=== PATIENT | female | born 1940 | race Caucasian/White ===

== ENCOUNTER → 2019-04-17 15:05 | Outpatient (BNVA) | payer MEDICARE, OTHER, SELFPAY | PROVIDERS: Family Provider Electrodiagnostic Medicine; PCP Electrodiagnostic Medicine; Visit Provider Internal Medicine Rheumatology | DX: M35.3 Polymyalgia rheumatica (principal); M18.9 Osteoarthritis of first carpometacarpal joint, unspecified; M19.042 Primary osteoarthritis, left hand | CPT/HCPCS: 20600 ×2; 99214; J2001; J3301 ==

== ENCOUNTER 2019-05-20 11:37 | Outpatient (REF) | payer MEDICARE, OTHER, SELFPAY ==
[2019-05-20 12:13] LABS: Anion Gap 14.7 (5-19); Blood Urea Nitrogen 13 mg/dL (8-23); Calcium 10.1 mg/dL (8.5-10.5); Carbon Dioxide 29 mmol/L (22-29); Chloride 101 mmol/L (98-107); Glucose 101 mg/dL (65-115); Magnesium 2.1 mg/dL (1.7-2.3); Osmolality Calculated 288 mOsm/kg (285-295); Potassium 3.7 mmol/L (3.5-5.1); Sodium 141 mmol/L (136-145)
== END 2019-05-20 11:38 | disposition home or self-care (01) ==
LOC: LAB 11:37
PROVIDERS: Family Provider Electrodiagnostic Medicine; PCP Electrodiagnostic Medicine; Visit Provider Electrodiagnostic Medicine
DX: Z01.89 Encounter for other specified special examinations (principal)
CPT/HCPCS: 80048; 83735

== ENCOUNTER 2019-05-27 10:36 | Outpatient (CLI) | payer MEDICARE, OTHER, SELFPAY ==
--- NOTE | 2019-05-27 10:53 | MR_ITS ---
WS: [id number] MRI HEAD WITH CONTRAST WITH ATTENTION TO THE INTERNAL AUDITORY CANALS TECHNIQUE: Sagittal T1, T2 axial, T2 axial flair, axial susceptibility weighted imaging, axial diffus ion weighted images, and coronal T2 images were obtained. Pre and post T1 axial and post T1 coronal i mages. ADC and FSPGR images. Post gadolinium images with attention to the internal auditory canals. A xial fiesta imaging. CLINICAL INFORMATION: DIZZINESS AND GIDDINESS COMPARISON: None. FINDINGS: No evidence of restricted diffusion to suggest acute ischemia. Ventricular system and basal cisterns are patent. Mild small vessel changes. Moderate parenchymal volume loss. Normal posterior fossa. Norm al vascular flow voids at the skull base. No extra-axial fluid collections. Paranasal sinuses and mas toid air cells well aerated. Proximal 7th and 8th cranial nerves appear normal. No evidence of enhancing IAC or CP angle mass. Nor mal trigeminal nerve root entry zones. Normal optic chiasm and pituitary infundibulum. No abnormal in tracranial enhancement. No hemosiderin on susceptibly weighted images. MR/MR iac's wo/w con* [id number] IMPRESSION: 1. No evidence of restricted diffusion to suggest acute ischemia. 2. Mild small vessel changes with moderate parenchymal volume loss. 3. Proximal 7th and 8th cranial nerves appear normal. 4. No evidence of enhancing IAC or CP angle mass.
== END 2019-05-27 10:37 | disposition home or self-care (01) ==
LOC: RADWPI 10:43
PROVIDERS: Family Provider Electrodiagnostic Medicine; PCP Electrodiagnostic Medicine; Visit Provider Specialist
DX: R42 Dizziness and giddiness (principal)
CPT/HCPCS: 70553; A9579

== ENCOUNTER → 2019-08-26 12:54 | Outpatient (BNVA) | payer MEDICARE, OTHER, SELFPAY | PROVIDERS: Family Provider Electrodiagnostic Medicine; PCP Electrodiagnostic Medicine; Visit Provider Internal Medicine | DX: M35.3 Polymyalgia rheumatica (principal); M81.0 Age-related osteoporosis without current pathological fracture; Z79.52 Long term (current) use of systemic steroids; Z79.899 Other long term (current) drug therapy | CPT/HCPCS: 36415; 80053; 85025; 85651; 86140; 86431; 99213 ==

== ENCOUNTER 2019-08-27 15:19 | Outpatient (CLI) | payer MEDICARE, OTHER, SELFPAY ==
--- NOTE | 2019-08-27 15:31 | XR_ITS ---
WS: [id number] Lumbar spine, 3 views, 08/27/2019 Clinical Data: lower back pain Comparison: Lumbar spine, 07/15/2015. Findings: No compression fractures or subluxation is seen. No disc space narrowing is seen. The transverse proc esses and SI joints are normal. Moderate anterior osteoarthritic spurring is seen. There is calcification of the wall of the abdomina l aorta but no aneurysm. XR/XR lumbar spine 2-3V* [id number] Impression: Moderate osteoarthritis.
--- NOTE | 2019-08-27 15:31 | XR_ITS ---
WS: [id number] Left hand, 2 views, 08/27/2019 Clinical Data: Synovitis Comparison: None. Findings: No fractures or dislocations are seen. The soft tissues are unremarkable. The joint spaces are normal No periarticular demineralization or calcifications are noted. XR/XR hand LT 2V [id number] Impression: Negative left hand.
--- NOTE | 2019-08-27 15:31 | XR_ITS ---
WS: [id number] Right hand, 2 views, 08/27/2019 Clinical Data: Synovitis Comparison: None. Findings: No fractures or dislocations are seen. The soft tissues are unremarkable. There is osteoa rthritic change at the head of the right first metatarsal. There is incidental small calcification on the distal lateral aspect of the right fourth middle phalanx. XR/XR hand RT 2V [id number] Impression: Minimal osteoarthritic changes.
== END 2019-08-27 15:20 | disposition home or self-care (01) ==
LOC: RADWPI 15:22
PROVIDERS: Family Provider Electrodiagnostic Medicine; PCP Electrodiagnostic Medicine; Visit Provider Internal Medicine
DX: M54.5 Low back pain (principal); M65.842 Other synovitis and tenosynovitis, left hand; M65.841 Other synovitis and tenosynovitis, right hand; M47.816 Spondylosis without myelopathy or radiculopathy, lumbar region; M19.041 Primary osteoarthritis, right hand
CPT/HCPCS: 72100; 73120

== ENCOUNTER 2019-10-17 14:54 | Outpatient (RCR) | payer MEDICARE, OTHER, SELFPAY | END 2019-11-11 23:59 | disposition home or self-care (01) | LOC: SPT 14:54 | PROVIDERS: PCP Electrodiagnostic Medicine; Referring Provider Otolaryngology; Visit Provider Otolaryngology | DX: R42 Dizziness and giddiness (principal) | CPT/HCPCS: 95992; 97112; 97162 ==

== ENCOUNTER 2019-11-01 23:21 | Inpatient (IN) | payer MEDICARE, OTHER, SELFPAY ==
--- NOTE | 2019-11-01 23:33 | XR_ITS ---
WS: [id number] EXAM: AP CHEST: PORTABLE UPRIGHT DATE OF EXAM: 11/02/2019, 0025 hours COMPARISON: Chest x-ray from 11/03/2017. HISTORY: Patient is 79 years old with atraumatic chest pain and shortness of breath. FINDINGS: The cardiac silhouette is normal in size. The mediastinal contours are similar. Calcified plaque i n the aorta.. The pulmonary vascularity is normal. Chronic lung changes are demonstrated. Slight c oarse markings in the lung bases are considered chronic with some slight linear atelectasis or scarri ng. Lungs are slightly hyperinflated. There is no effusion or pneumothorax. Old upper outer right r ib fractures again noted. XR/XR chest 1V portable [id number] IMPRESSION: Chronic lung changes demonstrated with slight hyperinflation. Linear atelectasi s or scarring in the lung bases. No findings of pulmonary edema or acute consol idating infiltrate.
--- NOTE | 2019-11-01 23:34 | ECG_ITS ---
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 Measurements Intervals [place] Rate: 74 P: 88 ID: [id number] QRS: 21 QRSD: 84 T: 66 QT: 378 QTc: 422 Interpretive Statements SINUS RHYTHM Compared to ECG 11/01/2017 07:11:26 No significant changes Electronically Signed On 11-02-2019 19:25:22 CDT by Bang Shepherd M.D. [id number] f
[2019-11-01 23:38] VITALS: BP 186/85; PULSE 79; RESP 18; TEMP 36.8; O2SAT 95; BMI 25.0
[2019-11-02] VITALS (13 sets, daily range): BP systolic 134–170; BP diastolic 73–93; PULSE 62–78; RESP 16–68; TEMP 36.6–36.8; O2SAT 86–99
[2019-11-02 00:03] LABS: Basophils % 0.5 %; Eosinophils # 0.2 10^3/uL (0.0-0.8); Eosinophils % 3.1 %; Hematocrit 41.3 % (37.0-47.0); Hemoglobin 12.5 g/dL (11.5-15.3); Lymphocytes # 2.6 10^3/uL (0.8-4.8); Lymphocytes % 43.4 %; Mean Corpuscular HGB Conc 30.3 g/dL (30.0-36.0); Mean Corpuscular Hemoglobin 31.2 pg (28.0-34.0); Mean Platelet Volume 10.9 fL (7.4-10.4); Monocytes # 0.5 10^3/uL (0.2-0.9); Monocytes % 8.1 %; Neutrophils # 2.72 10^3/uL (1.8-7.7); Neutrophils % 44.7 %; Nucleated Red Blood Cells % 0 %; Platelet Count 185 10^3/cmm (130-400); Red Blood Count 4.01 10^6/uL (4.1-5.3); Red Cell Distribution Width 13.6 % (12.1-15.1); White Blood Count 6.1 10^3/uL (4.0-10.0)
[2019-11-02 00:27] LABS: Troponin(5th) Baseline 12 ng/L (0-10)
[2019-11-02 00:36] LABS: Alanine Aminotransferase 21 U/L (0-33); Alkaline Phosphatase 92 IU/L (35-105); Anion Gap 12.5 (5-19); Aspartate Amino Transferase 24 U/L (0-32); Blood Urea Nitrogen 13 mg/dL (8-23); Carbon Dioxide 28 mmol/L (22-29); Chloride 106 mmol/L (98-107); Globulin 2.3 g/dL (1.3-4.6); Glucose 115 mg/dL (65-115); Osmolality Calculated 293 mOsm/kg (285-295); Potassium 3.5 mmol/L (3.5-5.1); Sodium 143 mmol/L (136-145); Thyroid Stimulating Hormone 2.72 uIU/mL (0.27-4.20); Total Bilirubin 0.2 mg/dL (0.15-1.2); Total Protein 6.3 g/dL (6.6-8.7)
--- NOTE | 2019-11-02 00:42 | ED_ITS ---
HPI - Chest Pain General: Chief Complaint: Chest Pain Stated Complaint: cp Time Seen by Provider: 11/02/19 00:02 History of Present Illness: HPI narrative: 79-year-old female complains of a fluttery feeling in her chest for the past couple of days, this is happened in a crescendoing manner, becoming more and more frequent and severe. She has been short of breath, especially on exertion. This evening she took a nitroglycerin, which seemed to help the fluttering some. She does experience discomfort with this fluttering feeling. She has a history of coronary disease. MD complaint: chest pain Pertinent past history: coronary artery disease and AD COMPOSITOR Onset (ago): day(s) Prior episodes: Yes Onset: during rest and during exertion Pain location: substernal Pain radiation: none Severity: moderate Quality: tightness, heaviness and other ( Fluttering ) Relieving factors: nitroglycerin Associated symptoms: Reports dyspnea, nausea and palpitations; Deny abdominal pain, fever(s) or vomiting Review of Systems Const: Denies: fever(s) or chills Eyes: Denies: change in vision or blurry vision ENMT: Denies: swelling of lips/tongue, post nasal drip or sinus pain Card: Reports: chest pain, palpitations, irregular heart rhythm, dyspnea on exertion and orthopnea; Denies: edema or swelling of feet/ankles Resp: Reports: dyspnea; Denies: productive cough, non-productive cough or wheezing GI: Reports: nausea; Denies: abdominal pain or vomiting : Denies: dysuria or hematuria Musc: Reports: back pain; Denies: neck pain or joint warmth Skin/Breast: Denies: rash, pruritus or erythema Neuro: Denies: headache(s), dizziness or vertigo Psych: Denies: anxiety PFS ED PFSH: Medical History (Updated 11/02/19 @ 05:03 by Alberto Roman DO) Carotid stenosis Coronary artery disease Dyslipidemia Essential hypertension Flexor tenosynovitis of finger Osteoarthritis of carpometacarpal joint of left thumb Osteoporosis PMR (polymyalgia rheumatica) Sleep apnea Trigger finger, left index finger Surgical History Hx of coronary angioplasty Family History Other CAD (coronary artery disease) Cancer Diabetes Hypertension Rheumatoid arthritis Denies family history of Chronic kidney disease (CKD) Lung disease Social History Smoking and tobacco status: former smoker Desire information about alcohol rehabilitation?: No Physical Exam Const: GENERAL APPEARANCE: well developed ORIENTATION/CONSCIOUSNESS: Yes oriented to person, Yes oriented to place and Yes oriented to time HENMT: COMMON NORMALS: normocephalic, external ears normal and Normal external nose present HEAD & SCALP: normocephalic FACE & SINUS: normal facial exam NOSE: Normal external nose present and No nasal discharge present EXTERNAL EAR: Yes external ears normal Eye: COMMON NORMALS: Equal, round and reactive pupils present, EOMs intact bilaterally and conjunctivae normal EYELID: eyelids normal CONJUNCTIVA: Yes conjunctivae normal PUPIL: Yes Equal, round and reactive pupils present Neck/C-Spine: GENERAL: No tracheal deviation Chest: COMMONS NORMALS: normal inspection of the chest CHEST: No tenderness Resp: COMMON NORMALS: clear to auscultation bilaterally EFFORT & INSPECTION: No tachypneic, No respiratory distress, No retractions, No uses accessory muscles and No tracheal deviation AUSCULTATION: clear to aus cultation bilaterally, no rhonchi, no wheezes and lung sounds not diminished Cardio: COMMON NORMALS: regular rate RATE: regular rate RHYTHM: abnormal rhythm HEART SOUNDS: no murmurs PERIPHERAL PULSES: radial pulses present GI: INSPECTION: No abdominal distension AUSCULTATION: No Hyperactive bowel sounds present and No Hypoactive bowel sounds present PALPATION: No Guarding due to palpation present (GI) and No Rigid due to palpation PERCUSSION: no dullness to percussion and no tympanic to percussion Neuro: SENSORIUM/ORIENTATION: Yes oriented to person, Yes oriented to place and Yes oriented to time Psych: COMMON NORMALS: mental status grossly normal Course Vital Signs: Vital signs: Vital Signs Temperature 97.9 F 11/02/19 04:30 Pulse Rate 73 11/02/19 04:37 Respiratory Rate 19 H 11/02/19 04:30 Blood Pressure 151/87 11/02/19 04:30 Pulse Oximetry 97 11/02/19 04:30 MDM - Chest Pain MDM Narrative: Medical decision making narrative: 79-year-old female with a history of coronary disease. She is throwing frequent PACs on the monitor, and unfortunately is feeling these. She still has heaviness in her chest. She has been quite hypertensive, this is despite metoprolol, nitroglycerin, etc. She still having pain. Her first troponin was minimally elevated, second troponin did not elevate her baseline. Her EKG showed a normal sinus rhythm. Her chest x-ray was negative. CT angio of the chest was performed showing some atelectasis in the bases. She will be observed given her history. Lab Data: Labs: Lab Results 11/01/19 11/01/19 11/01/19 Range/Units 23:57 23:57 23:57 WBC 6.1 (4.0-10.0) 10^3/ uL RBC 4.01 L (4.1-5.3) 10^6/u L Hgb 12.5 (11.5-15.3) g/dL Hct 41.3 (37.0-47.0) % MCV 103.0 H (81-99) fL MCH 31.2 (28.0-34.0) pg MCHC 30.3 (30.0-36.0) g/dL RDW 13.6 (12.1-15.1) % Plt Count 185 (130-400) 10^3/c mm MPV 10.9 H (7.4-10.4) fL Neut % (Auto) 44.7 % Lymph % (Auto) 43.4 % [place] % (Auto) 8.1 % Eos % (Auto) 3.1 % Baso % (Auto) 0.5 % Neut # (Auto) 2.72 (1.8-7.7) 10^3/u L Lymph # (Auto) 2.6 (0.8-4.8) 10^3/u L [place] # (Auto) 0.5 (0.2-0.9) 10^3/u L Eos # (Auto) 0.2 (0.0-0.8) 10^3/u L Baso # (Auto) 0.0 (0.0-0.1) 10^3/u L Nucleated RBC % (a uto) 0 % Nucleated RBCs # 0.0 /100WBC Sodium 143 (136-145) mmol/L Potassium 3.5 (3.5-5.1) mmol/L Chloride 106 (98-107) mmol/L Carbon Dioxide 28 (22-29) mmol/L Anion Gap 12.5 (5-19) BUN 13 (8-23) mg/dL Creatinine 0.6 (0.5-0.9) mg/dL GFR Calculation Not Reportable Glucose 115 (65-115) mg/dL Calculated Osmolal ity 293 (285-295) mOsm/k g Calcium 9.0 (8.5-10.5) mg/dL Magnesium 2.0 (1.7-2.3) mg/dL Total Bilirubin 0.2 (0.15-1.2) mg/dL AST 24 (0-32) U/L ALT 21 (0-33) U/L Alkaline Phosphata se 92 (35-105) IU/L Troponin T Baselin e 12 H (0-10) ng/L Troponin T 120 Min [place] (0-10) ng/L Delta Troponin T (0-10) ABS# NT-Pro-B Natriuret Pep (0-450) pg/mL Total Protein 6.3 L (6.6-8.7) g/dL Albumin 4.0 (3.5-5.2) g/dL Globulin 2.3 (1.3-4.6) g/dL TSH 2.72 (0.27-4.20) uIU/ mL 11/01/19 11/02/19 Range/Units 23:57 01:46 WBC (4.0-10.0) 10^3/ uL RBC (4.1-5.3) 10^6/u L Hgb (11.5-15.3) g/dL Hct (37.0-47.0) % MCV (81-99) fL MCH (28.0-34.0) pg MCHC (30.0-36.0) g/dL RDW (12.1-15.1) % Plt Count (130-400) 10^3/c mm MPV (7.4-10.4) fL Neut % (Auto) % Lymph % (Auto) % [place] % (Auto) % Eos % (Auto) % Baso % (Auto) % Neut # (Auto) (1.8-7.7) 10^3/u L Lymph # (Auto) (0.8-4.8) 10^3/u L [place] # (Auto) (0.2-0.9) 10^3/u L Eos # (Auto) (0.0-0.8) 10^3/u L Baso # (Auto) (0.0-0.1) 10^3/u L Nucleated RBC % (a uto) % Nucleated RBCs # /100WBC Sodium (136-145) mmol/L Potassium (3.5-5.1) mmol/L Chloride (98-107) mmol/L Carbon Dioxide (22-29) mmol/L Anion Gap (5-19) BUN (8-23) mg/dL Creatinine (0.5-0.9) mg/dL GFR Calculation Glucose (65-115) mg/dL Calculated Osmolal ity (285-295) mOsm/k g Calcium (8.5-10.5) mg/dL Magnesium (1.7-2.3) mg/dL Total Bilirubin (0.15-1.2) mg/dL AST (0-32) U/L ALT (0-33) U/L Alkaline Phosphata se (35-105) IU/L Troponin T Baselin e (0-10) ng/L Troponin T 120 Min [place] 11.24 H (0-10) ng/L Delta Troponin T -0.76 L (0-10) ABS# NT-Pro-B Natriuret Pep 304 (0-450) pg/mL Total Protein (6.6-8.7) g/dL Albumin (3.5-5.2) g/dL Globulin (1.3-4.6) g/dL TSH (0.27-4.20) uIU/ mL Discharge Plan Discharge Patient Disposition: Placed in Observation Admit Provider: Dalila Hawkins Clinical Impression: Chest pain Interventions: ED Discharge Assessment Last Done: 11/02/19 04:37 ED Charges Last Done: 11/02/19 04:37 Discharge Date/Time: 11/02/19 04:30 Coding Level of Care Code ED Home Care Rn for Geneg Fwd Exam Comprehensive
[2019-11-02] MEDS: nitroglycerin 1 gm/inch oint Pkt 1 INCH TOPICAL (01:05)
[2019-11-02 01:06] LABS: NT Pro B Type Natriuretic Pept 304 pg/mL (0-450)
--- NOTE | 2019-11-02 01:29 | PC.NURSE ---
EKG done at 0125 and shown to ER doctor
--- NOTE | 2019-11-02 01:34 | ECG_ITS ---
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 Measurements Intervals [place] Rate: 78 P: 87 ME: 185 QRS: 33 QRSD: 83 T: 66 QT: 398 QTc: 454 Interpretive Statements SINUS RHYTHM WITH FREQUENT ECTOPIC PREMATURE COMPLEXES Compared to ECG 11/01/2019 23:49:11 No significant changes Electronically Signed On 11-04-2019 11:55:30 CDT by Bang Shepherd M.D. [email or web address] [email or web address] health springfieldCommerce Guys/store/OM/[id number]
--- NOTE | 2019-11-02 01:35 | CTR_ITS ---
PROCEDURE INFORMATION: Exam: CT Angiography Chest With Contrast Exam date and time: 11/02/2019 1:59 AM Age: 79 years old Clinical indication: Shortness of breath; Chest pain; Prior surgery; Surgery type: Stent; Additional info: SOB TECHNIQUE: Imaging protocol: Computed tomographic angiography of the chest with intravenous contrast. 3D rendering (Not supervised by radiologist): MIP and/or 3D reconstructed images were created by the technologist. Radiation optimization: All CT scans at this facility use at least one of these dose optimization techniques: automated exposure control; mA and/or kV adjustment per patient size (includes targeted exams where dose is matched to clinical indication); or iterative reconstruction. Contrast material: OMNI 350; Contrast volume: 87 ml; Contrast route: INTRAVENOUS (IV); COMPARISON: CT chest [facility] [id number] 05/06/2015 9:50 AM RADIATION DOSE METRICS: Total DLP (mGy-cm): 653.16 FINDINGS: Pulmonary arteries: Normal. No pulmonary emboli. Aorta: Unremarkable. No aortic aneurysm. No aortic dissection. Lungs: There is a background of centrilobular emphysema. Some increased linear and hazy opacities are present in the lung bases likely representing atelectasis. Pleural space: Unremarkable. No pneumothorax. No pleural effusion. Heart: Unremarkable. No cardiomegaly. No pericardial effusion. Lymph nodes: Unremarkable. No enlarged lymph nodes. Bones/joints: Unremarkable. No acute fracture. Soft tissues: Unremarkable. CT/CT angio chest PE protcl [id number] IMPRESSION: 1. There is no evidence for pulmonary emboli. 2. Prominent centrilobular emphysema. Probable bilateral basilar atelectasis versus parenchymal and pleural scarring. Radiation Dose CTDIVOL = (mGy): DLP = 653.16 (mGy-cm)
--- NOTE | 2019-11-02 01:47 | PC.NURSE ---
Placed patient on 2 liters of oxygen via nasal cannula per doctors's order, nurse has been notified
[2019-11-02] MEDS: metoprolol tartrate 1 mg/1 mL SDV 5 mL 5 MG IV (01:53)
[2019-11-02 02:15] LABS: Troponin 5 2HR 11.24 ng/L (0-10)
[2019-11-02 02:30] LABS: Troponin 5 2HR Delta -0.76 ABS# (0-10)
[2019-11-02] MEDS: iohexol 350 mg/mL 100 mL Btl IV (02:52)
--- NOTE | 2019-11-02 03:40 | P.HP_ITS ---
Providers/Chief Complaint Primary Care Provider: Parvez Kay DO Chief Complaint: cp History of Present Illness April Schwartz is a 79 year old female carries history of coronary disease status post stent, hypertension, came in for chief complaint of palpitations. Patient is stating that for last 4 to 5 days she has been experiencing episode of palpitation which was last and resolved continuously, today she decided to come to the hospital because of discomfort she was feeling in her shoulders and suprasternal with palpitations, she did not experience any fever, nausea, vomiting, diarrhea, dysuria. She is endorsing fatigue, lethargy and shortness of breath on exertion. She gets short of breath while taking flights of stair which is unusual for her because she considers herself active for age, no orthopnea or PND, currently employed and independent for daily activities. She only drinks 1 mug of coffee a day no assistive use of caffeine. No history of thyroid disorder. Diagnosis in the ER revealed multiple PVCs with atrial ectopies otherwise sinus rhythm, troponin not significant, EKG no ischemic or infarctive changes, TSH normal She was hypertensive at the time of admission, she was given hydralazine 5 mg a long metoprolol 5 mg which improved her blood pressure, at the time of my evaluation her systolic blood pressures 150 once, diastolic 87 mmHg, chest pain- free, she is saturating well on room air, Review of Systems Const: Reports: chills, body aches and fatigue; Denies: fever(s) Eyes: Denies: change in vision ENMT: Denies: throat pain Card: Reports: palpitations, irregular heart rhythm and dyspnea on exertion; Denies: chest pain, swelling of feet/ankles, pre-syncope or orthopnea Resp: Reports: dyspnea; Denies: productive cough or non-productive cough GI: Denies: abdominal pain : Denies: flank pain Musc: Denies: neck pain Skin/Breast: Denies: rash Neuro: Denies: headache(s) Psych: Denies: anxiety Endo: Denies: polyuria Eddie/Lymph: Denies: easy bruising All/Imm: Denies: urticaria Medications/Allergies Home Medications Medication Instructions Recorded Confirmed Last Taken Type Ca 600 mg-D3 800 unit-mag oxide 50 tab PO DAILY tab 04/17/19 09/20/19 1 Day Ago History ku-Zj-ufearl-manganese-boron tablet ~11/01/19 aspirin 81 mg tablet,delayed 81 mg PO DAILY 04/17/19 11/02/19 1 Day Ago History release ~11/01/19 atorvastatin 20 mg tablet 20 mg PO DAILY 04/17/19 11/02/19 1 Day Ago History ~11/01/19 lisinopril 20 mg tablet 20 mg PO DAILY 04/17/19 11/02/19 1 Day Ago History ~11/01/19 meloxicam 15 mg tablet 7.5 mg PO DAILY tab 04/17/19 11/02/19 1 Day Ago History ~11/01/19 metoprolol tartrate 25 mg tablet 25 mg PO DAILY tab 04/17/19 11/02/19 1 Day Ago History ~11/01/19 nitroglycerin 0.4 mg sublingual 0.4 mg SUBLINGUAL Q5M PRN 04/17/19 11/02/19 1 Day Ago History tablet ~11/01/19 omeprazole 40 mg capsule,delayed 40 mg PO DAILY 04/17/19 11/02/19 1 Day Ago History release ~11/01/19 vit C-vit G-cudbgs-xpgh ox-lutein 1 cap PO DAILY cap 04/17/19 11/02/19 1 Week Ago History 226 mg-200 unit-5 mg-0.8 mg capsule ~10/26/19 Allergies Allergy/AdvReac Type Severity Reaction Status Date / Time naproxen [From Aleve] Allergy Intermediate RASH Verified 11/02/19 04:39 PFSH Acute PFSH: Medical History Carotid stenosis Coronary artery disease Dyslipidemia Essential hypertension Flexor tenosynovitis of finger Osteoarthritis of carpometacarpal joint of left thumb Osteoporosis PMR (polymyalgia rheumatica) Sleep apnea Trigger finger, left index finger Surgical History Hx of coronary angioplasty Family History Other CAD (coronary artery disease) Cancer Diabetes Hypertension Rheumatoid arthritis Denies family history of Chronic kidney disease (CKD) Lung disease Social History (Updated 11/02/19 @ 05:20 by Dalila Hawkins MD) Smoking and tobacco status: former smoker Desire information about alcohol rehabilitation?: No Substance/Drug Use: never Lives independently: Yes Housing: House Current occupational status: employed Vitals/I&O/Wt Last Vital Signs Temp 98.2 F 11/01/19 23:38 Pulse 74 11/02/19 02:47 Resp 16 11/02/19 02:47 BP 169/89 11/02/19 02:47 Pulse Ox 94 11/02/19 02:47 Weight last 48 hrs Weight 72.575 kg Physical Exam Narrative: EXAM NARRATIVE: Very pleasant elderly female No active chest pain EOMI, PERRLA Shortness of breath Saturating well on room air Heart rate 70 normal sinus rhythm Systolic blood pressure 157 mmHg Abdomen soft nontender nondistended bowel sounds Neurological nonfocal exam No lower extremity edema gangrene ulcer Appropriate mood and affect Lungs are clear to auscultate Data : 11/01/19 23:57 11/01/19 23:57 A&P Assessment and plan (1) Palpitations with regular cardiac rhythm: Status: Acute (2) Essential hypertension: Status: Acute (3) Coronary artery disease: Status: Acute (4) PMR (polymyalgia rheumatica): Status: Acute Additional A&P Information Paroxysmal palpitations Note relieving or triggering event EKG showing sinus rhythm with PVCs and PACs TSH normal Hypertensive on admission currently blood pressure is stable after nitro glycerin, hydralazine and metoprolol I believe hypertensive urgency was the cause of palpitation I have increased her metoprolol to 25mg twice a day instead of once a day Monitoring in CSU with telemetry, she might need Holter monitoring on discharge She was being reported as hypoxic on admission, she has nail syriac on, currently saturating well on room air, I do not suspect hypoxia however will ask respiratory place to monitor her heart rate on ambulation and check O2 sats, chest x-ray unremarkable Essential hypertension Increase metoprolol dose to 25 mg twice a day Consider increasing lisinopril dose if stays hypertensive Shoulder pain most likely secondary to polymyalgia rheumatica She is following up with crm marketing manager Full code DVT prophylaxis Lovenox Cardiac diet No need of repeating morning labs Attestations Medical Necessity Statement*: Anticipating discharge in less than 48 hours continued monitoring for her paroxysmal palpitations due to PACs and PVCs no diagnosis of flutter or A. fib has been made yet, need home O2 evaluation as well Time Spent in Patient Care: (>than 50% of time spent in counselling and/or di rect pt care on unit) . 35mins Coding Level of Care Code Acute Contact Lens Blocker And Cutter for Chg Fwd Diagnoses Palpitations with regular cardiac rhythm R00.2 Essential hypertension I10 Coronary artery disease I25.10 PMR (polymyalgia rheumatica) M35.3
--- NOTE | 2019-11-02 04:43 | PC.NURSE ---
Patient arrived to the floor from the ED after report was received via phone. Patient is alert and oriented and does not complain of anything at this time. Patient has been oriented to her room and has call light within reach. Patient is on 2L NC that was put on in ED.
--- NOTE | 2019-11-02 04:58 | PC.NURSE ---
Dr. Hawkins notified of patient's blood pressure of 151/87 and 5 mg of Hydralazine being due at this time. Ordered to hold Hydralazine.
--- NOTE | 2019-11-02 05:06 | PC.NURSE ---
Patient's oxygen saturation on 2 L NC was [address] Hawkins ordered to take oxygen off and ordered to monitor pulse ox. Patient's oxygen saturation is 94 percent on room air. Will continue to monitor pulse ox. Ordered to cancel ABG.
[2019-11-02] MEDS: enoxaparin 40 mg/0.4 mL Syringe SUBCUT (05:07)
--- NOTE | 2019-11-02 06:09 | PC.NURSE ---
Dr. Hawkins notified of patient's oxygen saturation dropping to 88 percent intermittently. Ordered to get nail french off of patient's finger or put pulse ox probe on forehead. Pulse ox probe has been placed on forehead. Will monitor oxygen saturation.
[2019-11-02] MEDS: lisinopril 20 mg Tablet PO (08:31)
[2019-11-02] MEDS: metoprolol tartrate 25 mg Tablet PO ×2 (08:32→17:27)
[2019-11-02] MEDS: aspirin 81 mg EC Tablet PO (08:32)
[2019-11-02] MEDS: pantoprazole DR 40 mg Tablet PO (08:32)
[2019-11-02] MEDS: atorvastatin 40 mg Tablet 20 MG PO (08:32)
--- NOTE | 2019-11-02 11:23 | PC.CHAP ---
Pastoral Care Encounter/Spiritual Assessment Type of Contact [] Declined ultrasound sonographer visit [] Patient/Family/Request visit [] Outpatient visit [] Follow-up visit [] Physician referral [] Code/Alert [X] Routine visit [] Staff referral [] Actively dying [] Patient sleeping [] Family support [] [] Out of room [] Palliative care [] [] Receiving care in room [] Pre-surgical visit [] Trauma [] Long length of stay [] ICU visit [] Other: Relational/Emotional Strength [X] Patient feels connected with others/family/visitors/staff [] Distress [] Loneliness/isolation [] Abandonment Spirituality of Patient [X] Person of [place] [X] Attends Bahai of their [place] [X] Believes in Prayer [X] Reads Bible or Worship materials [] There are Spiritual issues to be addressed Deicer Inspector Pneumatic Interventions [X] Prayer [X] Active listening [X] Non-anxious presence [] Spiritual/emotional support [] Crisis/trauma care [] Spiritual counseling [] Bereavement support [] Provided bereavement packet [X] Provided Bible/devotional materials [] Provided toy/stuffed animal, coloring book to patient or family member [] Provided Communion [] Anointing/[place] [] Salvation [X] Completed spiritual assessment [] Other: Impact on Illness or Injury [] Angry [] Fearful [] Anxious [] Often cries [] Exhaustion [] Unable to work [] Unable to attend adventist [] Unable to walk/stand [] Unable to read [] Unable to drive [] Unable to eat/drink [] Unable to sleep [] Unable to be with family [] Patient intubated [] Other: Summary: Pt feeling pretty well and wanted to visit. We discussed her work and her support system. She is well supported by biological family and baptist family. Time spent with patient: 20 mins X
[2019-11-02] MEDS: acetaminophen 325 mg Tablet 650 MG PO (13:54)
--- NOTE | 2019-11-02 14:06 | USCV_ITS ---
[place], [place] Age: 79 Gender: F : 1940 Exam Date: 11/02/2019 14:38 Ordering Phys: Kamille Garcia MD Technologist: Karena Salinas Exam Location: [facility] – [place] Indication: Evaluate EF, Diastolic function. New hypoxia, unclear cause BP: 156 / 82 HR: Rhythm: Sinus Technical Quality: Adequate MEASUREMENTS (Male / Female) Normal Values 2D ECHO LV Diastolic Diameter PLAX 3.8 cm 4.2 - 5.9 / 3.9 - 5.3 cm LV Systolic Diameter PLAX 2.0 cm LV Chamber Size 3.6 cm IVS Diastolic Thickness 1.3 cm 0.6 - 1.0 / 0.6 - 0.9 cm IVS Systolic Thickness 1.8 cm LVPW Diastolic Thickness 0.8 cm 0.6 - 1.0 / 0.6 - 0.9 cm LVPW Systolic Thickness 1.1 cm RV Chamber Size 2.6 cm LVOT Diameter 2.0 cm LV Ejection Fraction 2D Teich 80.0 % LV Ejection Fraction MOD 2C 62.8 % LV Ejection Fraction 2C AL 63.0 % LA Diameter 3.9 cm LA Width 3.9 cm LA Height 4.3 cm RA Width 2.6 cm RA Height 5.2 cm Aorta at Sinotubular Diameter 2.5 cm M-MODE LV Diastolic Diameter MM 5.2 cm 4.2 - 5.9 / 3.9 - 5.3 cm LV Systolic Diameter MM 2.9 cm LV Ejection Fraction MM Teich 75.2 % IVS Diastolic Thickness MM 1.0 cm 0.6 - 1.0 / 0.6 - 0.9 cm IVS Systolic Thickness MM 1.4 cm LVPW Diastolic Thickness MM 1.8 cm 0.6 - 1.0 / 0.6 - 0.9 cm LVPW Systolic Thickness MM 2.3 cm RV Diastolic Diameter MM 0.9 cm Aortic Annulus Diameter 2.7 cm LA Ao Ratio MM 1.4 MV E Point Septal Separation 0.3 cm DOPPLER AV Peak Velocity 191.0 cm/s LVOT Peak Velocity 101.0 cm/s AV Area Cont Eq vti 1.9 cm squared AV Area Cont Eq pk 1.7 cm squared MV Area PHT 4.0 cm squared Mitral E to A Ratio 1.3 MV E' Velocity 7.0 cm/s Mitral E to MV E' Ratio 15.8 Mitral E to LV E' Lateral Ratio 16.0 Mitral E to LV E' Septal Ratio 15.6 TR Peak Velocity 295.0 cm/s TR Peak Gradient 34.9 mmHg TV Peak E Velocity 59.0 cm/s Right Atrial Pressure 8.0 mmHg Pulmonary Artery Systolic Pressu 42.8 mmHg PV Peak Velocity 92.0 cm/s RV Acceleration Time 0.1 s RV Ejection Time 0.3 s RV AcT/ET 0.3 FINDINGS Left Ventricle Normal left ventricular size and systolic function with no regional wall motion abnormalities. Normal left ventricular wall thickness. LVEF is 55 to 60%. Normal diastolic filling pattern. Right Ventricle The right ventricle is normal in size and function. Right Atrium The right atrium is normal in size. Left Atrium The left atrium is normal in size. Mitral Valve Structurally normal mitral valve without significant stenosis or prolapse. There is mild to moderate mitral regurgitation. Aortic Valve Mild aortic valve thickening is noted. There is trace aortic regurgitation. There is no significant aortic stenosis noted. Tricuspid Valve Structurally normal tricuspid valve without significant stenosis. There is mild TR. RVSP is 42. Mild pulmonary hypertension is noted. Pulmonic Valve Structurally normal pulmonic valve without significant stenosis. There is trace pulmonic regurgitation. Pericardium Normal pericardium without effusion. Aorta Normal ascending aorta dimension. CONCLUSIONS Normal LV systolic function with EF of 55 to 60%. Normal diastolic filling pattern. There is mild pulmonary hypertension. Mild to moderate mitral regurgitation is noted. Bang Shepherd MD (Electronically Signed) Final Date: 02 November 2019 16:33 S
--- NOTE | 2019-11-02 14:06 | PM.PN ---
Subjective Subjective: Interval history: Patient maintains 02 sat on RA, however on exertion qualifies for supplemental 02, dipping down to 86%, Medications: Reviewed: Yes Vitals/I&O/Wt Last Vital Signs Temp 97.9 F 11/02/19 11:06 Pulse 62 11/02/19 11:06 Resp 18 11/02/19 11:06 BP 156/82 11/02/19 11:06 Pulse Ox 93 11/02/19 11:06 11/01/19 11/02/19 11/02/19 22:59 06:59 14:59 Intake Total 0 / 0 120 / 120 Balance 0 / 0 120 / 120 Weight last 48 hrs Weight 72.575 kg Physical Exam Narrative: EXAM NARRATIVE: GEN: Awake, alert and oriented, no acute distress CVS: S1S2 N RS: CTA B/L Abd: Soft, nt/nd , bs+ COOLING TOWER TECHNICIAN: no focal neuro deficits Data : 11/01/19 23:57 11/01/19 23:57 A&P Assessment and plan (1) Palpitations with regular cardiac rhythm: Status: Acute (2) Essential hypertension: Status: Acute (3) Coronary artery disease: Status: Acute (4) PMR (polymyalgia rheumatica): Status: Acute Additional A&P Information Paroxysmal palpitations No relieving or triggering event EKG showing sinus rhythm with PVCs and PACs TSH normal Hypertensive on admission currently blood pressure is stable after nitro glycerin, hydralazine and metoprolol I believe hypertensive urgency was the cause of palpitations She was being reported as hypoxic on admission, here qualified for home 02 as with exertion drops to 86%. she remains asymptomatic. cause not entirely clear, negative CTA for PE, pneumonia or fluid. check BNP, echocardiogram. CT notes emphysema, atient has not been formally diagnosed with COPD and at this time uses no inhalers. Bicarb is within normal limits. Check ABG to r/o methemoglobinemia, CO levels, c02 levels and pH Echo, BNP as above PFT as outaptient, does have a h/o sleep apnea Covid antigen screen Essential hypertension Increase metoprolol dose to 25 mg twice a day Shoulder pain most likely secondary to polymyalgia rheumatica She is following up with pump servicer supervisor Attestations Medical Necessity Statement*: check ABG, echo,BNP given new hypoxia of unclear etiology Coding Level of Care Code Acute Mechanics Handyman for Chg Fwd Diagnoses Palpitations with regular cardiac rhythm R00.2 Essential hypertension I10 Coronary artery disease I25.10 PMR (polymyalgia rheumatica) M35.3
[2019-11-02 14:35] LABS: SARS Covid-2 Antigen Negative (Negative)
[2019-11-02 16:42] LABS: ABG PCO2 43.6 mmHg (35-45); ABG PH Result 7.41 (7.35-7.45); Base Excess ABG 2.4 mmol/L (-2.0-2.0); Blood Gas Allen Test YES; HCO3 ABG 27.5 mmol/L (22-26); PO2 ABG 67.8 mmHg (80.0-100.0); Potassium Level - ABG 3.7 mmol/L (3.5-5.0)
[2019-11-02 16:43] LABS: Alveolar-Arterial Oxygen Gradi 47.7 mmHg (5-10); Arterial Blood Gas Hematocrit 38.8 % (37-47); Blood Gas Sample Site LEFT RADIAL; Blood Gas Sample Type ARTERIAL; Oxygen Device NC
[2019-11-02 16:44] LABS: HGB O2 Sat 92.3 % (95-100); Methemoglobin 0.8 % (0.4-1.5); Total Hemoglobin 12.7 g/dL (12-16)
[2019-11-02 16:45] LABS: Blood Gas Drawn By CK
[2019-11-02 18:29] LABS: NT Pro B Type Natriuretic Pept 437 pg/mL (0-450)
--- NOTE | 2019-11-02 20:38 | PC.NURSE ---
Patient does not have any complaints at this time. Patient has continuos pulse ox probe on forehead. Will monitor.
[2019-11-03] VITALS (12 sets, daily range): BP systolic 118–165; BP diastolic 66–85; PULSE 55–71; RESP 14–20; TEMP 36.4–36.9; O2SAT 88–100
[2019-11-03] MEDS: enoxaparin 40 mg/0.4 mL Syringe SUBCUT (04:52)
[2019-11-03] MEDS: acetaminophen 325 mg Tablet 650 MG PO (04:57)
[2019-11-03] MEDS: atorvastatin 40 mg Tablet 20 MG PO (08:49)
[2019-11-03] MEDS: lisinopril 20 mg Tablet PO (08:49)
[2019-11-03] MEDS: metoprolol tartrate 25 mg Tablet PO ×2 (08:49→17:19)
[2019-11-03] MEDS: pantoprazole DR 40 mg Tablet PO (08:49)
[2019-11-03] MEDS: aspirin 81 mg EC Tablet PO (08:50)
--- NOTE | 2019-11-03 15:09 | PM.PN ---
Subjective Subjective: Interval history: no new complaints today, palpitations better, extremely anxious at the thought of returning home today, fears that all her symptoms stem from a cardiac source Medications: Reviewed: Yes Vitals/I&O/Wt Last Vital Signs Temp 98.3 F 11/03/19 12:00 Pulse 66 11/03/19 12:00 Resp 16 11/03/19 12:00 BP 147/72 11/03/19 12:00 Pulse Ox 95 11/03/19 12:00 11/03/19 11/03/19 11/03/19 06:59 14:59 22:59 Intake Total 440 / 1160 620 / 620 Balance 440 / 1160 620 / 620 Weight last 48 hrs Weight 72.575 kg Physical Exam Narrative: EXAM NARRATIVE: GEN: Awake, alert and oriented, no acute distress CVS: S1S2 N RS: CTA B/L Abd: Soft, nt/nd , bs+ PHLEBOTOMIST LAB ASSISTANT: no focal neuro deficits Data : 11/01/19 23:57 11/01/19 23:57 A&P Assessment and plan (1) Palpitations with regular cardiac rhythm: Status: Acute (2) Essential hypertension: Status: Acute (3) Coronary artery disease: Status: Acute (4) PMR (polymyalgia rheumatica): Status: Acute Additional A&P Information # Paroxysmal palpitations No relieving or triggering event EKG showing sinus rhythm with PVCs and PACs TSH normal Hypertensive on admission currently blood pressure is stable after nitro, hydralazine and metoprolol She was being reported as hypoxic on admission, here qualified for home 02 as with exertion drops to 86%. She remains overall asymptomatic, well appearing. Cause not entirely clear, negative CTA for PE, pneumonia or fluid. BNP not elevated, echocardiogram with LVEF 55-60%, normal diastolic function. CT notes emphysema, patient has not been formally diagnosed with COPD to date, does not use inhalers. Bicarb is within normal limits. ABG without methemoglobinemia, normal CO levels, c02 levels and pH PFT as outpatient, does have a h/o sleep apnea Covid antigen screen negative Shoulder pain most likely secondary to polymyalgia rheumatica, however patient is extremely concerned about her symptoms being cardiac in nature. Wishes to see cemetery warden prior to going home- consulted Full code Attestations Medical Necessity Statement*: pending cardiology recommendsations Coding Level of Care Code Acute Computer Operations Specialist for Chg Fwd Diagnoses Palpitations with regular cardiac rhythm R00.2 Essential hypertension I10 Coronary artery disease I25.10 PMR (polymyalgia rheumatica) M35.3
--- NOTE | 2019-11-03 15:26 | ECG_ITS ---
[facility] Test Date: 2019-11-04 Pat Name: April Schwartz Department: Room: 112 Gender: Female Frickertron Checker: : 1940 Requested By: Kamille Garcia Order Number: [id number] Cale MD: Bang Shepherd M.D. Interpretive Statements NAME OF STUDY: LEXISCAN SESTAMIBI STRESS TEST INDICATION: [ANGINA TYPE SYMPTONS, ] Procedure: At the baseline the blood pressure was 201/80 mmHg, with a heart rate of 65 BPM. The electrocardiogram showed normal sinus rhythm, normal axis with normal ST and T waves. Lexiscan was infused over the. Of 20 seconds. A total of 0.4 mg of Lexiscan was infused. The stress phase was confirmed for total of 5 minutes. Heart rate at the end of stress phase was 73bpm, with a blood pressure of 163/74 mmHg. Sestamibi was injected 20 seconds after the Lexiscan injection. Blood pressure at the end of the recovery phase was 154/72 mmHg and a heart rate of 75 bpm. Conclusions: 1) normal EKG response to Lexiscan infusion. 2) no Lexiscan induced chest pain or cardiac arrhythmias. 3) normal blood pressure and heart rate response. 4) sestamibi/sestamibi perfusion scan pending see separate report. Electronically Signed On 11-04-2019 12:24:29 CDT by Bang Shepherd M.D. [email or web address]
--- NOTE | 2019-11-03 19:38 | P.CONIM_ITS ---
Providers/Reason For Consult Consulting Physican/Specialty*: Jose Shepherd MD/cardiology Reason for Consult*: Palpitations/chest discomfort Requesting Physcian: Kamille Garcia MD Attending Physician: Kamille Garcia MD Primary Care Provider: Parvez Kay DO History of Present Illness History of Present Illness April Schwartz is a 79 year old female with past medical history of coronary disease status post stent in LAD, hypertension, came in for chief complaint of palpitations. According to the patient she has been getting these palpitations for the last 4 to 5 days. She is also concerned because prior to her last PCI she was having mild discomfort between the shoulder blades in the back which she has experienced couple of times in the recent past. EKG revealed multiple premature atrial complexes. No significant ST-T wave changes were noted. She has noted dyspnea on exertion recently. She has felt that climbing a flight of stairs makes her very short of breath which was not the case a few months ago. In the hospital she has qualified for oxygen therapy for which the etiology is not clear. She underwent an echocardiogram that showed mild pulmonary hypertension but normal ejection fraction. She was hypertensive at the time of admission, she was given hydralazine 5 mg along metoprolol 5 mg which improved her blood pressure. Review of Systems Narrative: CONSTITUTIONAL: No fever chills weight loss or gain or night sweats. [] HEENT: Normocephalic, atraumatic.[] RESPIRATORY: No cough, sputum, hemoptysis or wheezing.[] CARDIOVASCULAR: shortness of breath, patient , no chest pain, PND, orthopnea, lower extremity edema, presyncope or syncope. [] GI: no nausea vomiting diarrhea. [] FIELD TALENT QUALIFICATION SPECIALIST: No numbness, tingling, weakness or loss of function in any part of the body. [] MUSCULOSKELETAL: No knee or joint pain or rashes. [] Meds/Allergies Home Medications and Allergies Home Medications Medication Instructions Recorded Confirmed Last Taken Type aspirin 81 mg tablet,delayed 81 mg PO DAILY 04/17/19 11/02/19 1 Day Ago History release ~11/01/19 atorvastatin 20 mg tablet 20 mg PO DAILY 04/17/19 11/02/19 1 Day Ago History ~11/01/19 lisinopril 20 mg tablet 20 mg PO DAILY 04/17/19 11/02/19 1 Day Ago History ~11/01/19 meloxicam 15 mg tablet 7.5 mg PO DAILY tab 04/17/19 11/02/19 1 Day Ago History ~11/01/19 metoprolol tartrate 25 mg tablet 25 mg PO DAILY tab 04/17/19 11/02/19 1 Day Ago History ~11/01/19 nitroglycerin 0.4 mg sublingual 0.4 mg SUBLINGUAL Q5M PRN 04/17/19 11/02/19 1 Day Ago History tablet ~11/01/19 omeprazole 40 mg capsule,delayed 40 mg PO DAILY 04/17/19 11/02/19 1 Day Ago History release ~11/01/19 vit C-vit S-qkwzme-mrpe ox-lutein 1 cap PO DAILY cap 04/17/19 11/02/19 1 Week Ago History 226 mg-200 unit-5 mg-0.8 mg capsule ~10/26/19 Allergies Allergy/AdvReac Type Severity Reaction Status Date / Time naproxen [From Aleve] Allergy Intermediate RASH Verified 11/02/19 10:43 Current Medications Current Medications Generic Name Dose Route Start Last Admin Trade Name Freq PRN Reason Stop Dose Admin Acetaminophen 650 mg 11/02/19 12:41 11/03/19 04:57 Tylenol PO 650 mg Q6H PRN Administration MILD PAIN Aspirin 81 mg 11/02/19 09:00 11/03/19 08:50 Aspirin Ec PO 81 mg DAILY EFRA Administration Atorvastatin Calcium 20 mg 11/02/19 09:00 11/03/19 08:49 Lipitor PO 20 mg DAILY EFRA Administration Enoxaparin Sodium 40 mg 11/02/19 04:35 11/03/19 04:52 Lovenox SUBCUT 40 mg Q24H EFRA Administration Lisinopril 20 mg 11/02/19 09:00 11/03/19 08:49 Prinivil PO 20 mg DAILY EFRA Administration Metoprolol Tartrate 25 mg 11/02/19 09:00 11/03/19 17:19 Lopressor PO 25 mg BID EFRA Administration Pantoprazole Sodium 40 mg 11/02/19 09:00 11/03/19 08:49 Protonix PO 40 mg DAILY EFRA Administration PFSH Acute PFSH: Medical History Carotid stenosis Coronary artery disease Dyslipidemia Essential hypertension Flexor tenosynovitis of finger Osteoarthritis of carpometacarpal joint of left thumb Osteoporosis PMR (polymyalgia rheumatica) Sleep apnea Trigger finger, left index finger Surgical History H/O cataract extraction History of cholecystectomy Hx of coronary angioplasty Family History Other CAD (coronary artery disease) Cancer Diabetes Hypertension Rheumatoid arthritis Denies family history of Chronic kidney disease (CKD) Lung disease Social History Smoking and tobacco status: former smoker Desire information about alcohol rehabilitation?: No Substance/Drug Use: never Lives independently: Yes Housing: House Current occupational status: employed Vitals/I&O/Wt Last Vital Signs Temp 97.6 F 11/03/19 19:22 Pulse 60 11/03/19 19:22 Resp 15 11/03/19 19:22 BP 158/78 11/03/19 19:22 Pulse Ox 94 11/03/19 19:22 11/03/19 11/03/19 11/03/19 06:59 14:59 22:59 Intake Total 440 / 1160 620 / 620 120 / 740 Balance 440 / 1160 620 / 620 120 / 740 Weight last 48 hrs Weight 160 lb Physical Exam Narrative: EXAM NARRATIVE: GENERAL: Patient is alert, awake and oriented x3. [] NECK: No jugular vein distension. [] HEENT: No cyanosis. No icterus. No pallor. [] HEART: Regular S1 and S2. No murmur, rub or gallop. [] LUNGS: Clear to auscultate bilaterally. [] ABDOMEN: Soft, nontender and nondistended. Positive bowel sounds. No guarding, rebound or tenderness. [] CENTRAL NERVOUS SYSTEM: Grossly nonfocal. [] EXTREMITIES: Lower extremities with no significant edema bilaterally. Pulses palpable in the lower extremities, both dorsalis pedis and posterior tibial. [] A&P Assessment and plan (1) Chest pain: Status: Acute (2) Dyslipidemia: Status: Acute (3) Essential hypertension: Status: Acute (4) Coronary artery disease: Status: Acute (5) Palpitations: Status: Acute (6) Palpitations with regular cardiac rhythm: Status: Acute Patient's symptoms are atypical. However some features are consistent with what she experienced prior to her previous coronary intervention in the LAD. I have recommended Lexiscan to assess for ischemia. If stress test is abnormal then we will arrange for a coronary angiogram. She has mild to moderate mitral regurgitation and mild pulmonary hypertension. Her etiology for hypoxia is not clear at this time. Continue current medications. We will continue to follow. Thank you for involving us with the care of this patient. Please call with questions Coding Level of Care Code Acute Sex Crimes Detective for Petr Luque Diagnoses Chest pain R07.9 Dyslipidemia E78.5 Essential hypertension I10 Coronary artery disease I25.10 Palpitations R00.2 Palpitations with regular cardiac rhythm R00.2
--- NOTE | 2019-11-03 19:45 | PC.NURSE ---
Patient resting in bed. Patient is alert and oriented. Patient vitals obtained and denies any pain. Call light is within reach. Patient educated on her NPO status for her stress test tomorrow. Will continue to monitor.
[2019-11-04] VITALS (9 sets, daily range): BP systolic 146–182; BP diastolic 72–94; PULSE 50–74; RESP 16–23; TEMP 36.4–36.7; O2SAT 92–100
[2019-11-04] MEDS: enoxaparin 40 mg/0.4 mL Syringe SUBCUT (04:21)
--- NOTE | 2019-11-04 05:38 | PC.NURSE ---
End of shift: Patient had a uneventful shift. Patient remains alert and oriented and vitals are stable. Patient denies any pain at this time will continue to monitor.
[2019-11-04] MEDS: regadenoson 0.4 Mg/5 ml Syringe IVP (07:46)
--- NOTE | 2019-11-04 08:13 | PC.NURSE ---
STRESS TEST NOTE THE PATIENT REQUESTED THAT THIS NURSE CALL HER DAUGHTER, LINA, WITH AN UPDATE. THIS NURSE LEFT A MESSAGE ON LINA'S PHONE.
--- NOTE | 2019-11-04 08:54 | PC.NURSE ---
Patient back to room form stress test alert oriented and in stable condition. placed back on telemetry
[2019-11-04] MEDS: metoprolol tartrate 25 mg Tablet PO ×2 (09:06→17:11)
[2019-11-04] MEDS: pantoprazole DR 40 mg Tablet PO (09:06)
[2019-11-04] MEDS: lisinopril 20 mg Tablet PO (09:07)
[2019-11-04] MEDS: atorvastatin 40 mg Tablet 20 MG PO (09:07)
[2019-11-04] MEDS: aspirin 81 mg EC Tablet PO (09:07)
--- NOTE | 2019-11-04 12:16 | PC.CHAP ---
Pastoral Care Encounter/Spiritual Assessment Type of Contact [] Declined plugger visit [] Patient/Family/Request visit [] Outpatient visit [] Follow-up visit [] Physician referral [] Code/Alert [] Routine visit [] Staff referral [] Actively dying [] Patient sleeping [] Family support [] [] Out of room [] Palliative care [] [] Receiving care in room [] Pre-surgical visit [] Trauma [] Long length of stay [] ICU visit [x] Other:Patient busy with Staff. Relational/Emotional Strength [] Patient feels connected with others/family/visitors/staff [] Distress [] Loneliness/isolation [] Abandonment Spirituality of Patient [] Person of [place] [] Attends Latter Day of their [place] [] Believes in Prayer [] Reads Bible or Jehovah'S Witness materials [] There are Spiritual issues to be addressed Cushion Builder Interventions [] Prayer [] Active listening [] Non-anxious presence [] Spiritual/emotional support [] Crisis/trauma care [] Spiritual counseling [] Bereavement support [] Provided bereavement packet [] Provided Bible/devotional materials [] Provided toy/stuffed animal, coloring book to patient or family member [] Provided Communion [] Anointing/[place] [] Salvation [] Completed spiritual assessment [] Other: Impact on Illness or Injury [] Angry [] Fearful [] Anxious [] Often cries [] Exhaustion [] Unable to work [] Unable to attend holiness [] Unable to walk/stand [] Unable to read [] Unable to drive [] Unable to eat/drink [] Unable to sleep [] Unable to be with family [] Patient intubated [] Other: Summary Needs Follow Up Visit. Time spent with patient
--- NOTE | 2019-11-04 13:01 | PC.NURSE ---
Dr. Shepherd called and gave verbal orders to schedule angiogram procedure for tomorrow due to abnormal stress test results.
--- NOTE | 2019-11-04 13:23 | P.PN_ITS ---
Subjective Subjective: Interval history: This morning patient was seen after her first part of cardiac stress test, has no complaints overnight, no episodes of chest pain, nausea left shoulder pain, no lightheadedness, dizziness, no nausea, no vomiting she tells me that she was off oxygen most of the day yesterday, does have a greater than 86-[id number]-[id number] history of smoking, she was told by Dr. Salomon that her only risk factor for LAD stent placement many years ago was her smoking history Medications: Reviewed: Yes Vitals/I&O/Wt Last Vital Signs Temp 98.0 F 11/04/19 09:09 Pulse 60 11/04/19 11:18 Resp 22 H 11/04/19 11:18 BP 146/83 11/04/19 11:18 Pulse Ox 93 11/04/19 11:18 11/03/19 11/04/19 11/04/19 22:59 06:59 14:59 Intake Total 240 / 860 350 / 1210 960 / 960 Output Total 2 / 2 Balance 240 / 860 348 / 1208 960 / 960 Physical Exam Const: COMMON NORMALS: no acute distress and patient oriented x3 HENMT: COMMON NORMALS: normocephalic HEAD & SCALP: normocephalic Neck/C-Spine: COMMON NORMALS: no JVD Resp: COMMON NORMALS: normal respiratory effort, No retractions, No use of accessory muscles and clear to auscultation bilaterally AUSCULTATION: clear to auscultation bilaterally Cardio: COMMON NORMALS: no JVD, regular rate, regular rhythm, S1 normal heart sound present and S2 normal heart sound present RATE: regular rate RHYTHM: regular rhythm HEART SOUNDS: S1 normal heart sound present and S2 normal heart sound present GI: COMMON NORMALS: Normal to inspection, nondistended, normoactive bowel sounds present, Soft to palpation, non-tender, No hepatosplenomegaly present, no masses and no bruits PALPATION: Yes Soft to palpation and Yes No hepatosplenomegaly present Extremity: COMMON NORMALS: capillary refill normal, no clubbing, cyanosis or e miguel, no calf tenderness and no pedal edema Neuro: COMMON NORMALS: patient oriented x3 Psych: COMMON NORMALS: mental status grossly normal Data : 11/01/19 23:57 11/01/19 23:57 A&P Assessment and plan (1) Palpitations with regular cardiac rhythm: Status: Acute (2) Essential hypertension: Status: Acute (3) Coronary artery disease: Status: Acute (4) PMR (polymyalgia rheumatica): Status: Acute Additional A&P Information # Paroxysmal palpitations No relieving or triggering event EKG showing sinus rhythm with PVCs and PACs TSH normal Hypertensive on admission currently blood pressure is stable after nitro, hydralazine and metoprolol She was being reported as hypoxic on admission, here qualified for home 02 as with exertion drops to 86%, will repeat home O2 eval She remains overall asymptomatic, well appearing. Cause not entirely clear, negative CTA for PE, pneumonia or fluid. BNP not elevated, echocardiogram with LVEF 55-60%, normal diastolic function. CT notes emphysema, patient has not been formally diagnosed with COPD to date, does not use inhalers. Bicarb is within normal limits. But does have a greater than 72-[id number]-[id number] history of smoking, CT does show emphysema, likely emphysema source of her intermittent hypoxia, will have patient follow-up with pulmonary ABG without methemoglobinemia, normal CO levels, c02 levels and pH PFT as outpatient, does have a h/o sleep apnea Covid antigen screen negative Chest pain, with left shoulder pain, patient will have a cardiac stress test this morning, will await results, cardiology consult, further work-up depending on results Full code Attestations Medical Necessity Statement*: Patient requires hospitalization, for chest pain, hypoxia Coding Level of Care Code Acute Director Of Optimization for Chg Fwd Diagnoses Palpitations with regular cardiac rhythm R00.2 Essential hypertension I10 Coronary artery disease I25.10 PMR (polymyalgia rheumatica) M35.3
--- NOTE | 2019-11-04 13:33 | PC.NURSE ---
Contacted Dr Shepherd of Lovenox due on patient at 0400 for VTE prophylaxis instructions given to hold next scheduled dose
--- NOTE | 2019-11-04 15:26 | NMCV_ITS ---
NM alesia perf SPECT r/s* [id number] April Schwartz Age: 79 Gender: F : 1940 Exam Date: 11/04/2019 07:01 Ordering Phys: Kamille Garcia MD Technologist: NAHOMI Olivia Exam Location: [facility] Indications: CHEST PAIN STRESS TEST [facility] for [facility] IMAGE PROTOCOL Rest/Stress 1 Lexiscan Day Radiopharmaceutical Dose (mCi) Administration Site Administered by Rest: Tc-99m 10.7 IV NAHOMI Joya Sestamibi Stress:Tc-99m 32.3 IV NAHOMI Olivia Sestamibi Rest: 04-Nov-2019 60 Discovery 630 Stress: 04-Nov-2019 30 Discovery 630 0.4mg Lexiscan. Images obtained in supine and prone position. SPECT RESULTS Technical Quality: Excellent Raw Data Analysis: Normal Image Corrections: No attenuation or motion correction applied Summed Stress Score: 0 Summed Rest Score: 0 Summed Difference Score: 0 PERFUSION FINDINGS Small sized reversible perfusion abnormality of mild severity of mid anterior and apical anterior conteh on stress images. FUNCTIONAL RESULTS (calculated via Gated SPECT) Stress Image LV EF (%): 72 Stress EDV (mL):88 TID: 1 Stress ESV (mL):25 FUNCTIONAL FINDINGS: The left ventricle is normal in size. Transient Ischemia Dilatation of 1. There is normal left ventricular systolic function. The left ventricular ejection fraction is normal with a value of 72%. There is normal left ventricular wall thickening. Normal end-diastolic and end-systolic volumes. IMPRESSIONS 1. Small sized reversible perfusion abnormality of mild severity of mid anterior and apical anterior conteh. 2. This may represent breast attenuation artifact, however small area of ischemia in left anterior descending artery territory cannot be completely ruled out. 3. Overall left ventricular systolic function is normal without regional wall motion abnormalities. 4. The left ventricular ejection fraction is normal with a value of 72%. 5. No prior similar studies to compare. Nazanin Rosenthal MD (Electronically Signed) Final Date: 04 November 2019 12:33 S
--- NOTE | 2019-11-04 21:02 | P.PN_ITS ---
Subjective Subjective: Interval history: Patient is still complaining of palpitations and occasional chest discomfort between the shoulder blades. Today she also endorses on and off jaw pain. Vitals/I&O/Wt Last Vital Signs Temp 97.8 F 11/04/19 19:24 Pulse 62 11/04/19 19:24 Resp 23 H 11/04/19 19:24 BP 147/74 11/04/19 19:24 Pulse Ox 93 11/04/19 19:24 11/04/19 11/04/19 11/04/19 06:59 14:59 22:59 Intake Total 350 / 1210 960 / 960 240 / 1200 Output Total 2 / 2 Balance 348 / 1208 960 / 960 240 / 1200 Physical Exam Narrative: EXAM NARRATIVE: GENERAL: Patient is alert, awake and oriented x3. [] NECK: No jugular vein distension. [] HEENT: No cyanosis. No icterus. No pallor. [] HEART: Regular S1 and S2. No murmur, rub or gallop. [] LUNGS: Clear to auscultate bilaterally. [] ABDOMEN: Soft, nontender and nondistended. Positive bowel sounds. No guarding, rebound or tenderness. [] CENTRAL NERVOUS SYSTEM: Grossly nonfocal. [] EXTREMITIES: Lower extremities with no significant edema bilaterally. Pulses palpable in the lower extremities, both dorsalis pedis and posterior tibial. [] Data : 11/01/19 23:57 11/01/19 23:57 A&P Assessment and plan (1) Chest pain: Status: Acute (2) Dyslipidemia: Status: Acute (3) Essential hypertension: Status: Acute (4) Coronary artery disease: Status: Acute (5) Palpitations: Status: Acute (6) Palpitations with regular cardiac rhythm: Status: Acute (7) Abnormal stress test: Status: Acute Patient has been having chest discomfort on and off. Lexiscan was performed today that showed a reversible defect in the mid anterior and apical anterior wall. Given her prior stent in the LAD, and stress test is abnormal in the anterior wall, we will schedule her for coronary angiogram for tomorrow. Risks of procedure including bleeding, infection, renal function worsening, heart attack, stroke and were discussed with patient. NPO past midnight Blood pressure is uncontrolled. Increase the dose of Metoprolol to 50mg BID Please call with questions Attestations Medical Necessity Statement*: Care is expected to extend over 2 midnights Coding Level of Care Code Acute Marker Delivery for Chg Fwd Diagnoses Chest pain R07.9 Dyslipidemia E78.5 Essential hypertension I10 Coronary artery disease I25.10 Palpitations R00.2 Palpitations with regular cardiac rhythm R00.2 Abnormal stress test R94.39
[2019-11-05] VITALS (30 sets, daily range): BP systolic 100–163; BP diastolic 53–84; PULSE 50–73; RESP 14–26; TEMP 36.5–36.8; O2SAT 77–98
[2019-11-05 06:11] LABS: Albumin Level 4.2 g/dL (3.5-5.2); Chloride 104 mmol/L (98-107); Potassium 4.2 mmol/L (3.5-5.1); Sodium 141 mmol/L (136-145)
[2019-11-05 06:36] LABS: Alanine Aminotransferase 22 U/L (0-33); Alkaline Phosphatase 88 IU/L (35-105); Anion Gap 16.2 (5-19); Aspartate Amino Transferase 18 U/L (0-32); Carbon Dioxide 25 mmol/L (22-29); Glucose 92 mg/dL (65-115); Phosphorus 3.9 mg/dL (2.5-4.5); Total Bilirubin 0.4 mg/dL (0.15-1.2); Total Protein 7.3 g/dL (6.6-8.7)
[2019-11-05 06:52] LABS: Blood Urea Nitrogen 16 mg/dL (8-23); Calcium 9.1 mg/dL (8.5-10.5); Magnesium 2.2 mg/dL (1.7-2.3); Osmolality Calculated 288 mOsm/kg (285-295)
--- NOTE | 2019-11-05 07:00 | XACV_ITS ---
Exam Room: 1 Ht: 170 cm Wt: 73 kg BSA: 1.86 m2 Gender: Female : 1940 Performing Physician(s): Kenzie Shepherd Any Known Allergies: Other Exam Priority: Routine Indication(s): - Abnormal nuclear perfusion study Procedure(s): Procedure Description: Diagnostic procedure Procedure Description: Left Heart Catheterization Procedure Description: Left ventriculography Procedure Description: Coronary Angiography MD KENZIE SHEPHERD; Diagnostic Cath Status: Urgent Diagnostic Findings Abnormal stress test. CX is a large, dominant vessel. It gives off 3 OM branches. It has Luminal irregularities. RCA is a small vessel and has minor irregularities. LAD arises from left main artery. It has a proximal vessel stent. There is mild 20% in-stent restenosis . LM has 0% stenosis. Coronary angiography shows left dominance. Conclusions There is mild nonobstructive coronary artery disease. Normal left ventricular systolic function. Ejection fraction of 50%. Recommendations Uptitrate dose of beta-blockers. Aggressive medical therapy for coronary artery disease. Diagnostic RX Recommendation: medical therapy and/or counseling Ejection Fraction: 50.0 % Pressures Phase:Rest AO : 151 mmHg / 74 mmHg ( 100 mmHg ) @ 4:03:00 AM 133 mmHg / 76 mmHg ( 102 mmHg ) @ 4:06:00 AM 150 mmHg / 62 mmHg ( 95 mmHg ) @ 4:18:00 AM 150 mmHg / 44 mmHg ( 86 mmHg ) @ 4:18:00 AM LV : 131 mmHg / -7 mmHg / @ 4:16:00 AM 152 mmHg / -9 mmHg / @ 4:17:00 AM 149 mmHg / -9 mmHg / @ 4:18:00 AM Valves Phase:DefaultPhase AV : 0.0 mmHg @ 9:31:45 AM 0.0 mmHg @ 9:31:45 AM AV Mean Gradient: 0.0 mmHg @ 9:31:45 AM 0.0 mmHg @ 9:31:45 AM Clinical Evaluation EBL: 5mL-10mL Procedural Details Procedure Consent Obtained. Pre-Procedure Time Out. Identified patient by full name and date of as verbalized by the patient/guarantor. Does the consent match the physician's order: Yes. Accurate & Complete Informed Consent: Yes. Inpatient/Outpatient History & Physical on Chart: Yes. If H&P is completed, is and addenduem needed: No; If yes, is the addendum complete: N/A. Visualize and Verify Site with Patient/Guarantor: N/A. Relevant Radiology Images available: Yes. Pre-op teaching completed and patient verbalized understanding. The risks, benefits, and alternatives of sedation and/or procedure were discussed by physician. The patient agrees to continue. Procedure started. IV Site on Arrival: 20 gauge in the left anticubital. IV Fluids: 0.9% NaCl at KVO. 0 mL infused prior to optical lab technician. Pre Procedural Pulses: right radial was 2+. Oxygen started at 2liters/min via nasal canula. right groin was prepped with chloroprep then draped in the usual sterile fashion. right radial was prepped with chloroprep then draped in the usual sterile fashion. Physician notified. Baseline sample Acquired. HR: 52 BPM. Baseline sample Acquired. HR: 59 BPM. Patient's family unavailable due to current Covid restrictions. The patient's daughter, Nancy Sprague at , will be updated throughout the procedure. Equipment: 6F - Radial. Cardiac Cath Pack. ACIST Manifold Kit Model BT 2000. Heparinized Saline (2 units/mL), 1000 mL bag. Physician arrived. Physician scrubbed in. Immediate Pre-Procedure Time Out. Correct Patient: Yes; Correct Procedure: Yes; Correct Site: Yes; Correct Patient Position: Yes; Correct Supplies: Yes; Dried Flammable Prep: Yes; Blood Products Available: N/A. Lidocaine 1% infiltrated to the right radial. The patient's daughter, Nancy Sprague at , was updated via telephone as Dr. Shepherd was scrubbing in. Arterial access obtained. A 5 marshallese TIG catheter in over the exchange wire. Added inventory: 260 cm Glidewire. Exchange wire out, glidewire in. Glidewire out, hand injection performed. Glidewire in. Catheter and wire out. Unable to use radial approach, moving to femoral access. Lidocaine 1% infiltrated to the right groin. Arterial access obtained with micropuncture set. A 5 marshallese JL4 catheter in over the exchange wire. Multiple views taken of left coronary artery. Catheter removed over the exchange wire. A 5 marshallese JR4 catheter in over the exchange wire. Multiple views taken of right coronary artery. Catheter removed over the exchange wire. A 5 marshallese Angled Pig catheter in over the exchange wire. The patient's daughter, Nancy Sprague at , was updated via telephone.. EDP Sample taken: LV 131/-8,10; HR: 57 BPM; SpO2: 99%. LV gram performed in DE ANDA @ 10 mL/second for a total of 30 mL. EDP Sample taken: LV 152/-10,12; HR: 58 BPM; SpO2: 99%. Pullback taken: LV 149/-10,11; AO 150/62(95); Mean: 0mmHg, Peak to Peak: 0mmHg, SEP: 12sec/min; HR: 56 BPM; SpO2: 99%. Catheter removed over the exchange wire. Physician scrubbed out. The patient's daughter, Nancy Sprague at , was updated via telephone by Dr. Shepherd.. Sheath(s) sutured into position with 2-0 silk and sterile 4x4's and Op-site applied over the site. No oozing or signs and symptoms of hematoma noted. Arterial sheath flushed and connected to tranducer and pressure bag with heparinized saline. TR band placed. Hemostasis obtained. Post Procedure: Pulses reassessed and unchanged. PERRLA. Strong, equal hand roto rooter operator bilaterally. No VTE prophylaxis required. Medication's Wasted: Heparin = 4000 units. Medication's Wasted: Nitro = 48.7 mg. Total IV fluids: 100 mL. A TR Band was successful obtaining hemostatsis at the Right Radial artery insertion site. A Suture was successful obtaining hemostatsis at the Right Femoral artery insertion site. [facility] Clinical Fraility Score: 3: Managing Well. Trading Analyst Indications: Suspected CAD/abnormal stress test. Chest Pain Symptom Assessment: Atypical Angina. Cardiovascular Instability: No. Vital chart was stopped. Post-op diagnosis: Non-Obstructive CAD. Complications: none. Estimated blood loss: 5mL-10mL. Procedure completed. Patient transferred by bed to 1st floor. Site: Right Radial artery Sheath Size: 6 Fr Hemostasis Method: TR Band Hemostasis Success: Successful Site: Right Femoral artery Sheath Size: 5 Fr Hemostasis Method: Suture Hemostasis Success: Successful Procedure Medications Start: 8:40 AM Stop: 8:40 AM Medication: Versed Amount: 1 mg Route: I.V. Start: 8:40 AM Stop: 8:40 AM Medication: Fentanyl Amount: 50 mcg Route: I.V. Start: 8:43 AM Stop: 8:43 AM Medication: Nitrogylcerin Amount: 200 mcg Route: I.A. Start: 8:51 AM Stop: 8:51 AM Medication: Nitrogylcerin Amount: 100 mcg Route: I.A. Start: 9:15 AM Stop: 9:15 AM Medication: Versed Amount: 1 mg Route: I.V. Start: 9:15 AM Stop: 9:15 AM Medication: Fentanyl Amount: 50 mcg Route: I.V. I, the attending physician, have reviewed and verified all procedure medications. Yes, all medications given per verbal order History/Risk Factors Hypertension: Yes Dyslipidemia: Yes Peripheral Arterial Disease (PAD): No Myocardial Infarction (SD): No Obesity: No Renal Disease: No Tobacco Use: Former Prior Interventions PCI: Yes CABG: No Valve Surgery: No Date of PCI: 06/18/2010 Report Signatures Finalized by:Kenzie Shepherd MD on 11/06/2019 8:09:59 AM
[2019-11-05] MEDS: sodium chloride 0.9% 1,000 ML 50 ML IV (07:06)
[2019-11-05] MEDS: diphenhydrAMINE 50 mg Capsule PO (07:06)
[2019-11-05 07:25] LABS: Basophils % 0.5 %; Eosinophils # 0.2 10^3/uL (0.0-0.8); Eosinophils % 3.5 %; Hematocrit 43.3 % (37.0-47.0); Lymphocytes # 2.4 10^3/uL (0.8-4.8); Lymphocytes % 42.9 %; Mean Corpuscular Volume 103.3 fL (81-99); Mean Platelet Volume 10.7 fL (7.4-10.4); Monocytes # 0.4 10^3/uL (0.2-0.9); Monocytes % 7.6 %; Neutrophils % 45.5 %; Nucleated Red Blood Cells % 0 %; Platelet Count 164 10^3/cmm (130-400); Red Blood Count 4.19 10^6/uL (4.1-5.3); Red Cell Distribution Width 13.3 % (12.1-15.1); White Blood Count 5.5 10^3/uL (4.0-10.0)
[2019-11-05] MEDS: ondansetron 2 mg/ML SDV 2 mL 4 MG IVP (07:49)
--- NOTE | 2019-11-05 07:56 | PC.NURSE ---
Dr. Polanco at bedside before scheduled procedure and gave verbal orders to administer scheduled medications 3 minutes early to prevent BP from becoming elevated during procedure.
[2019-11-05] MEDS: atorvastatin 40 mg Tablet 20 MG PO (07:57)
[2019-11-05] MEDS: pantoprazole DR 40 mg Tablet PO (07:57)
[2019-11-05] MEDS: lisinopril 20 mg Tablet PO (07:58)
[2019-11-05] MEDS: aspirin 81 mg EC Tablet PO (07:59)
[2019-11-05] MEDS: metoprolol tartrate 25 mg Tablet PO (07:59)
--- NOTE | 2019-11-05 10:21 | PC.NURSE ---
Patient arrived back from microbiology lab analyst at 0945. Right femoral 5 [place] sheath sutured in place with pressure bag attached. Patient also has a TR band in place on right radial artery with 13 mL's of air in place. Both sites are clean and no s/s of bleeding or hematomas. Pulses are present. Diagnostic cath only, 0 interventions.
--- NOTE | 2019-11-05 10:54 | P.DS_ITS ---
Discharge Providers Date of Admission: 11/03/19 21:34 Date of Discharge: November 05, 2019 Attending Provider at Admission: Dalila Hawkins MD Attending Provider at Discharge: Suraj Polanco MD Primary Care Provider: Parvez Kay DO Diagnoses at Discharge Discharge Diagnosis (1) Chest pain: Status: Acute (2) Dyslipidemia: Status: Acute (3) Essential hypertension: Status: Acute (4) Coronary artery disease: Status: Acute (5) Palpitations: Status: Acute (6) Palpitations with regular cardiac rhythm: Status: Acute (7) Abnormal stress test: Status: Acute Reason for Visit Reason for Visit: cp Hospital Course Discharge Summary: This is a 79-year-old female with past medical history of CAD status post RCA stenting, hypertension, who presents to [facility] due to complaints of palpitations, chest pain, shoulder pain, hypoxia For patient's chest palpitations, she did have frequent PVCs and PACs seen on EKG, telemetry had no significant arrhythmias, TSH within normal limits, discharged on metoprolol 25 mg twice daily. For her chest pain, patient she had a abnormal stress test, underwent coronary angiogram by Dr. Shepherd, did not have any significant obstructive CAD, discharged on aspirin, statin with close follow-up with cardiology as outpatient. During her hospitalization, patient required up to 2 L of oxygen, her etiology of hypoxia was worked evaluated, CT was negative for pulmonary embolism, pneumonia, or fluid, BNP was not elevated, echocardiogram showed EF of 55 to 60%, normal diastolic dysfunction, no significant elevated CO2, no significant methemoglobinemia, she does have a history of obstructive sleep apnea. Patient does have a greater than 23-akpy-mjqa history of smoking, CT noted emphysema of the lungs, her oxygen requirements decreased to room air through her hospitalization, she did not require oxygen on home O2 eval. Thus likely I suspect that patient's history of smoking, emphysema, PING was an etiology behind her intermittent oxygen requirements. I have discharged the patient with an outpatient follow-up with pulmonary for pulmonary function testing and sleep study. Physical Exam Const: COMMON NORMALS: no acute distress and patient oriented x3 HENMT: COMMON NORMALS: normocephalic HEAD & SCALP: normocephalic Neck/C-Spine: COMMON NORMALS: no JVD Resp: COMMON NORMALS: normal respiratory effort, No retractions, No use of accessory muscles and clear to auscultation bilaterally AUSCULTATION: clear to auscultation bilaterally Cardio: COMMON NORMALS: no JVD, regular rate, regular rhythm, S1 normal heart sound present and S2 normal heart sound present RATE: regular rate RHYTHM: regular rhythm HEART SOUNDS: S1 normal heart sound present and S2 normal heart sound present GI: COMMON NORMALS: Normal to inspection, nondistended, normoactive bowel sounds present, Soft to palpation, non-tender, No hepatosplenomegaly present, no masses and no bruits PALPATION: Yes Soft to palpation and Yes No hepatosplenomegaly present Extremity: COMMON NORMALS: capillary refill normal, no clubbing, cyanosis or edema, no calf tenderness and no pedal edema Neuro: COMMON NORMALS: patient oriented x3 Psych: COMMON NORMALS: mental status grossly normal Discharge Data Data Completed and Pending: Completed Studies During Hospitalization Category Date Time Status CT angio chest PE protcl [id number] Urge nt Cat Scan 11/02/19 01:35 Completed Sestamibi Stress Test Request Routi ne Exams 11/03/19 15:26 Completed XR chest 1V evelyn ble [id number] Stat Exams 11/01/19 23:33 Completed NM alesia perf SPECT r/s* [id number] Routin e Nuc Med 11/04/19 15:26 Completed CV echo complete* [id number] Routine Ultrasound 11/02/19 14:06 Completed Pending at discharge Category Date Time Status TUBE ROOM SUPERVISOR request for service Routin e Exams 11/05/19 07:00 Ordered Complete Blood Co unt w/Auto AM LABS Lab 11/06/19 04:00 Ordered Complete Blood Co unt w/Auto AM LABS Lab 11/07/19 04:00 Ordered Comprehensive Met abolic Panel AM LA BS Lab 11/06/19 04:00 Ordered Comprehensive Met abolic Panel AM LA BS Lab 11/07/19 04:00 Ordered Magnesium AM LABS Lab 11/06/19 04:00 Ordered Magnesium AM LABS Lab 11/07/19 04:00 Ordered Phosphorus AM LAB S Lab 11/06/19 04:00 Ordered Phosphorus AM LAB S Lab 11/07/19 04:00 Ordered Labs from last 24 hours 11/05/19 11/05/19 11/05/19 07:19 05:30 05:30 WBC 5.5 Cancelled Corrected WBC Cancelled RBC 4.19 Cancelled Hgb 13.0 Cancelled Hct 43.3 Cancelled MCV 103.3 H Cancelled MCH 31.0 Cancelled MCHC 30.0 Cancelled RDW 13.3 Cancelled Plt Count 164 Cancelled MPV 10.7 H Cancelled Gran % Cancelled Neut % (Auto) 45.5 Cancelled Lymph % (Auto) 42.9 Cancelled [place] % (Auto) 7.6 Cancelled Eos % (Auto) 3.5 Cancelled Baso % (Auto) 0.5 Cancelled Neut # (Auto) 2.50 Cancelled Lymph # (Auto) 2.4 Cancelled [place] # (Auto) 0.4 Cancelled Eos # (Auto) 0.2 Cancelled Baso # (Auto) 0.0 Cancelled Absolute Gran (aut o) Cancelled Nucleated RBC % (a uto) 0 Cancelled Nucleated RBCs # 0.0 Cancelled ABG O2 Saturation Ionized Calcium Sodium 141 Potassium 4.2 Chloride 104 Carbon Dioxide 25 Anion Gap 16.2 BUN 16 Creatinine 0.6 GFR Calculation Not Reportable Glucose 92 Calculated Osmolal ity 288 Calcium 9.1 Phosphorus 3.9 Magnesium 2.2 Total Bilirubin 0.4 AST 18 ALT 22 Alkaline Phosphata se 88 Total Protein 7.3 Albumin 4.2 Globulin 3.0 11/02/19 16:22 WBC Corrected WBC RBC Hgb Hct MCV MCH MCHC RDW Plt Count MPV Gran % Neut % (Auto) Lymph % (Auto) [place] % (Auto) Eos % (Auto) Baso % (Auto) Neut # (Auto) Lymph # (Auto) [place] # (Auto) Eos # (Auto) Baso # (Auto) Absolute Gran (aut o) Nucleated RBC % (a uto) Nucleated RBCs # ABG O2 Saturation Not Reportable Ionized Calcium Not Reportable Sodium Potassium Chloride Carbon Dioxide Anion Gap BUN Creatinine GFR Calculation Glucose Calculated Osmolal ity Calcium Phosphorus Magnesium Total Bilirubin AST ALT Alkaline Phosphata se Total Protein Albumin Globulin Vitals: Last Vital Signs Temp 97.7 F 11/05/19 07:29 Pulse 58 L 11/05/19 10:02 Resp 20 H 11/05/19 10:02 BP 118/61 11/05/19 10:02 Pulse Ox 88 L 11/05/19 10:02 Discharge Plan Discharge Patient Disposition: Home Condition: Stable Prescriptions: New metoprolol tartrate 25 mg Tablet 25 mg PO BID 30 Days Qty: 60 RF: 0 Continued nitroglycerin [Nitrostat] 0.4 mg tablet, sublingual 0.4 mg SUBLINGUAL Q5M PRN (Reason: chest pain) RF: 0 lisinopril 20 mg tablet 20 mg PO DAILY RF: 0 omeprazole 40 mg capsule,delayed release(DR/EC) 40 mg PO DAILY RF: 0 aspirin [Adult Aspirin Regimen] 81 mg tablet,delayed release (DR/EC) 81 mg PO DAILY RF: 0 atorvastatin 20 mg tablet 20 mg PO DAILY RF: 0 PreserVision Lutein 226 mg-200 unit -5 mg-0.8 mg capsule 1 cap PO DAILY RF: 0 Held meloxicam 15 mg tablet 7.5 mg PO DAILY RF: 0 Hold Instructions: Resume on 11/12/19. Discontinued metoprolol tartrate 25 mg tablet 25 mg PO DAILY RF: 0 Discharge Orders: Discharge Order (Routine); Ordered 11/05/19 Ordered By: Suraj Polanco Referrals: Home Health [facility] [Outside] Datar,Armando Guerra MD [Physician] - 2 weeks (needs pft, copd, emphysema) Bang Shepherd M.D [Physician] - 2 weeks Parvez Kay DO [Primary Care Provider] - Discharge Diet: Cardiac Discharge Activity: Resume usual activity Discharge Attestations Time Spent in Discharge Care*: less than 30 min Quality Metrics Clinical Quality Measures During this hospital stay, did patient experience: None Coding Level of Care Code Acute Employee Wellness/Fitness Coordinator for Chg Fwd Diagnoses Chest pain R07.9 Dyslipidemia E78.5 Essential hypertension I10 Coronary artery disease I25.10 Palpitations R00.2 Palpitations with regular cardiac rhythm R00.2 Abnormal stress test R94.39
--- NOTE | 2019-11-05 11:06 | PM.PN ---
Subjective Subjective: Interval history: Patient has been doing well. She underwent coronary angiogram and left heart catheter today. She does not have any significant coronary artery disease. Her LAD stent is patent. Vitals/I&O/Wt Last Vital Signs Temp 97.7 F 11/05/19 07:29 Pulse 58 L 11/05/19 10:45 Resp 17 11/05/19 10:45 BP 116/59 11/05/19 10:45 Pulse Ox 87 L 11/05/19 10:45 11/04/19 11/05/19 11/05/19 22:59 06:59 14:59 Intake Total 360 / 1320 Balance 360 / 1320 Physical Exam Narrative: EXAM NARRATIVE: GENERAL: Patient is alert, awake and oriented x3. [] NECK: No jugular vein distension. [] HEENT: No cyanosis. No icterus. No pallor. [] HEART: Regular S1 and S2. No murmur, rub or gallop. [] LUNGS: Clear to auscultate bilaterally. [] ABDOMEN: Soft, nontender and nondistended. Positive bowel sounds. No guarding, rebound or tenderness. [] CENTRAL NERVOUS SYSTEM: Grossly nonfocal. [] EXTREMITIES: Lower extremities with no significant edema bilaterally. Pulses palpable in the lower extremities, both dorsalis pedis and posterior tibial. [] Data : 11/05/19 07:19 11/05/19 05:30 A&P Assessment and plan (1) Chest pain: Status: Acute (2) Dyslipidemia: Status: Acute (3) Essential hypertension: Status: Acute (4) Coronary artery disease: Status: Acute (5) Palpitations: Status: Acute (6) Palpitations with regular cardiac rhythm: Status: Acute (7) Abnormal stress test: Status: Acute Patient underwent coronary angiogram today. No significant coronary artery disease. Patent LAD stent. Continue current medications. I will recommend to uptitrate metoprolol to 50 mg twice daily. She can be scheduled to see us in cardiology office Thank you for involving us in care of this patient. Please call with questions Attestations Medical Necessity Statement*: Care expected to cross 2 midnights Coding Level of Care Code Acute Felter Tennis Balls for Petr Luque Diagnoses Chest pain R07.9 Dyslipidemia E78.5 Essential hypertension I10 Coronary artery disease I25.10 Palpitations R00.2 Palpitations with regular cardiac rhythm R00.2 Abnormal stress test R94.39
--- NOTE | 2019-11-05 11:12 | PC.CHAP ---
Pastoral Care Encounter/Spiritual Assessment Type of Contact [] Declined nephrology nurse visit [] Patient/Family/Request visit [] Outpatient visit [x] Follow-up visit [] Physician referral [] Code/Alert [] Routine visit [] Staff referral [] Actively dying [] Patient sleeping [] Family support [] [] Out of room [] Palliative care [] [] Receiving care in room [] Pre-surgical visit [] Trauma [] Long length of stay [] ICU visit [x] Other: test for Angegram Relational/Emotional Strength [] Patient feels connected with others/family/visitors/staff [] Distress [] Loneliness/isolation [] Abandonment Spirituality of Patient [] Person of [place] [] Attends Jainism of their [place] [] Believes in Prayer [] Reads Bible or Jainism materials [] There are Spiritual issues to be addressed Computer Numerical Control Grinder Interventions [] Prayer [] Active listening [] Non-anxious presence [] Spiritual/emotional support [] Crisis/trauma care [] Spiritual counseling [] Bereavement support [] Provided bereavement packet [] Provided Bible/devotional materials [] Provided toy/stuffed animal, coloring book to patient or family member [] Provided Communion [] Anointing/[place] [] Salvation [] Completed spiritual assessment [] Other: Impact on Illness or Injury [] Angry [] Fearful [] Anxious [] Often cries [] Exhaustion [] Unable to work [] Unable to attend religion [] Unable to walk/stand [] Unable to read [] Unable to drive [] Unable to eat/drink [] Unable to sleep [] Unable to be with family [] Patient intubated [] Other: Summary test for Angegram Time spent with patient 5 mins
--- NOTE | 2019-11-05 13:25 | PC.NURSE ---
TR band off at 1325. Dressing dry and intact, no bleeding or hematoma present.
--- NOTE | 2019-11-05 15:02 | PC.NURSE ---
DISTRIBUTION AGENT staff up walking patient after completing bed rest following protocol after post cath.
--- NOTE | 2019-11-05 16:41 | PC.NURSE ---
Patient discharged home from [facility] at 1633. Patient left unit with all personal belongings and discharge instructions. Patient was taken via w/c to surgical services to private vehicle where daughter was waiting. Patient's verbalized understanding of all discharge instructions and denied any further questions. IV was removed, catheter tip intact, patient tolerated well.
== END 2019-11-05 16:33 | disposition home or self-care (01) | DRG 287 ==
LOC: ER 11-02 00:02 → CSU 11-02 04:06
PROVIDERS: Emergency Medicine; Internal Medicine; Nurse Practitioner Family; Student in an Organized Health Care Education/Training Program; Admitting Provider Internal Medicine; PCP Electrodiagnostic Medicine; Visit Provider Family Medicine
PROC: 4A023N7 Measurement of Cardiac Sampling and Pressure, Left Heart, Percutaneous Approach (ICD-10-PCS; principal; 2019-11-05 08:30)
DX: R00.2 Palpitations (principal); I25.10 Atherosclerotic heart disease of native coronary artery without angina pectoris; Z95.5 Presence of coronary angioplasty implant and graft; E78.5 Hyperlipidemia, unspecified; I10 Essential (primary) hypertension; M19.042 Primary osteoarthritis, left hand; M81.0 Age-related osteoporosis without current pathological fracture; M35.3 Polymyalgia rheumatica; G47.33 Obstructive sleep apnea (adult) (pediatric); Z87.891 Personal history of nicotine dependence; J43.9 Emphysema, unspecified; M25.512 Pain in left shoulder; R07.9 Chest pain, unspecified; R94.39 Abnormal result of other cardiovascular function study; Z79.82 Long term (current) use of aspirin
CPT/HCPCS: 12345; 36415; 36600; 71045; 71275; 78452; 80051; 80053; 82810; 83735; 83880; 83986; 84100; 84443; 84484; 85025; 87426; 93005; 93017; 93306; 93452; 94660; 96372; 96375; 99283; A9500; C1769; C1887; C1894; G0378; J1644; J1650; J2250; J2405; J2785; J3010; J3490; J7030; Q0163; Q9967

== ENCOUNTER 2019-11-08 20:57 | Emergency (ER) | payer MEDICARE, OTHER, SELFPAY ==
[2019-11-08 21:15] VITALS: BP 190/97; PULSE 64; RESP 16; TEMP 35.8; O2SAT 97; BMI 26.7
[2019-11-08 22:17] VITALS: BP 185/95; PULSE 64; RESP 16; O2SAT 96
--- NOTE | 2019-11-08 22:23 | PC.NURSE ---
PT STATED THAT SHE HAD AN ANGIO GRAM DONE WHILE SHE WAS HERE IN THE HOSPITAL AND WAS TOLD THAT IT WAS, CLEAN. PT DID NOT HAVE A CAROTID STUDY DONE.
[2019-11-08 22:30] VITALS: BP 158/83; PULSE 62; RESP 16; O2SAT 94
--- NOTE | 2019-11-08 22:30 | ECG_ITS ---
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 Measurements Intervals [place] Rate: 62 P: 87 MT: 184 QRS: 23 QRSD: 90 T: 51 QT: 402 QTc: 410 Interpretive Statements SINUS RHYTHM Compared to ECG 11/02/2019 01:28:21 No significant changes Electronically Signed On 11-09-2019 20:51:12 CDT by Rey Iqbal M.D. [email or web address].[facility] Industrial Engineeringsouth sunflower [facility] hospitalWeeleolicking memorial hospital.[employer]/store/[id number]
[2019-11-08 23:00] VITALS: BP 157/89; RESP 16
[2019-11-08 23:13] LABS: Basophils % 0.5 %; Eosinophils # 0.2 10^3/uL (0.0-0.8); Eosinophils % 3.6 %; Hemoglobin 12.4 g/dL (11.5-15.3); Lymphocytes # 2.6 10^3/uL (0.8-4.8); Lymphocytes % 39.6 %; Mean Corpuscular HGB Conc 30.2 g/dL (30.0-36.0); Mean Corpuscular Hemoglobin 31.2 pg (28.0-34.0); Mean Corpuscular Volume 103.3 fL (81-99); Mean Platelet Volume 11.6 fL (7.4-10.4); Monocytes # 0.6 10^3/uL (0.2-0.9); Monocytes % 8.8 %; Neutrophils # 3.07 10^3/uL (1.8-7.7); Neutrophils % 47.3 %; Nucleated Red Blood Cells % 0 %; Platelet Count 165 10^3/cmm (130-400); Red Blood Count 3.97 10^6/uL (4.1-5.3); Red Cell Distribution Width 13.2 % (12.1-15.1); White Blood Count 6.5 10^3/uL (4.0-10.0)
[2019-11-08 23:34] LABS: Alanine Aminotransferase 18 U/L (0-33); Albumin Level 4.2 g/dL (3.5-5.2); Alkaline Phosphatase 89 IU/L (35-105); Aspartate Amino Transferase 15 U/L (0-32); Blood Urea Nitrogen 11 mg/dL (8-23); Calcium 9.7 mg/dL (8.5-10.5); Carbon Dioxide 28 mmol/L (22-29); Chloride 105 mmol/L (98-107); Globulin 2.3 g/dL (1.3-4.6); Glucose 94 mg/dL (65-115); Osmolality Calculated 288 mOsm/kg (285-295); Sodium 141 mmol/L (136-145); Total Bilirubin 0.3 mg/dL (0.15-1.2); Total Protein 6.5 g/dL (6.6-8.7)
[2019-11-08 23:36] LABS: Troponin T (5th) Once 11 ng/L (0-10)
[2019-11-08] MEDS: amlodipine 10 mg Tablet PO (23:37)
[2019-11-08 23:42] LABS: Magnesium 2.1 mg/dL (1.7-2.3); NT Pro B Type Natriuretic Pept 417 pg/mL (0-450)
[2019-11-08 23:43] LABS: Anion Gap 12.2 (5-19); Potassium 4.2 mmol/L (3.5-5.1)
[2019-11-09] VITALS: BP 161/86; PULSE 65; RESP 16; O2SAT 93
--- NOTE | 2019-11-09 00:03 | ED_ITS ---
HPI - General Adult General: Chief complaint: General Medical Stated complaint: high bp Time Seen by Provider: 11/08/19 22:55 History of Present Illness: HPI narrative: 9-year-old female with a history of coronary disease and hypertension. She presents with hypertension for the last 2 days. She was released from the hospital a couple of days ago after an extensive work-up for chest discomfort. She was hypertensive during that time as well. When she was released, her blood pressure was normal at home for 48 hours or so, and steadily risen over the past 3 days or so. When she left home via ambulance, her blood pressure was over 200 systolic. She did say that she had a mild headache at that point. It is gone now. Her blood pressure is back down to some degree. She did not have any significant chest discomfort, but did note that she hurt in her upper back before. Onset (ago): hour(s) Location: head Radiation: non-radiation Quality: aching Associated symptoms: Reports chest pain and headache(s); Deny cough, dyspnea, nausea or rash Review of Systems Const: Denies: fever(s) or chills Eyes: Denies: change in vision ENMT: Denies: bleeding gums or post nasal drip Card: Reports: chest pain Resp: Denies: dyspnea GI: Denies: nausea : Denies: dysuria or hematuria Musc: Denies: neck pain, joint redness or joint warmth Skin/Breast: Denies: rash, pruritus or erythema Neuro: Reports: headache(s); Denies: dizziness or seizure-like activity Psych: Denies: anxiety PFSH ED PFSH: Medical History (Updated 11/09/19 @ 01:53 by Alberto Roman DO) Carotid stenosis Coronary artery disease Dyslipidemia Essential hypertension Flexor tenosynovitis of finger Osteoarthritis of carpometacarpal joint of left thumb Osteoporosis PMR (polymyalgia rheumatica) Sleep apnea Trigger finger, left index finger Surgical History H/O cataract extraction History of cholecystectomy Hx of coronary angioplasty Family History Other CAD (coronary artery disease) Cancer Diabetes Hypertension Rheumatoid arthritis Denies family history of Chronic kidney disease (CKD) Lung disease Social History Smoking and tobacco status: former smoker Desire information about alcohol rehabilitation?: No Lives independently: Yes Housing: House Current occupational status: employed Physical Exam Const: GENERAL APPEARANCE: well developed ORIENTATION/CONSCIOUSNESS: Yes oriented to person, Yes oriented to place and Yes oriented to time HENMT: COMMON NORMALS: normocephalic, external ears normal and Normal external nose present HEAD & SCALP: normocephalic FACE & SINUS: normal facial exam NOSE: Normal external nose present and No nasal discharge present EXTERNAL EAR: Yes external ears normal MOUTH: tongue normal Eye: COMMON NORMALS: Equal, round and reactive pupils present, EOMs intact bilaterally and conjunctivae normal EYELID: eyelids normal CONJUNCTIVA: Yes conjunctivae normal PUPIL: Yes Equal, round and reactive pupils present Neck/C-Spine: GENERAL: No tracheal deviation Chest: COMMONS NORMALS: normal inspection of the chest CHEST: No tenderness Resp: COMMON NORMALS: clear to auscultation bilaterally EFFORT & INSPECTION: No tachypneic, No respiratory distress, No retractions, No uses accessory muscles and No tracheal deviation AUSCULTATION: clear to auscultation bilaterally, no rhonchi, no wheezes and lung sounds not diminished Cardio: COMMON NORMALS: regular rate and regular rhythm RATE: regular rate RHYTHM: regular rhythm HEART SOUNDS: no murmurs PERIPHERAL PULSES: radial pulses present GI: INSPECTION: No abdominal distension AUSCULTATION: No Hyperactive bowel sounds present and No Hypoactive bowel sounds present PALPATION: No Guarding due to palpation present (GI) and No Rigid due to palpation PERCUSSION: no dullness to percussion and no tympanic to percussion Neuro: SENSORIUM/ORIENTATION: Yes oriented to person, Yes oriented to place and Yes oriented to time Psych: COMMON NORMALS: mental status grossly normal Skin: COMMON NORMALS: no rashes or lesions noted GENERAL SKIN EXAM: no rashes or lesions noted Course Vital Signs: Vital signs: Vital Signs Temperature 96.5 F L 11/08/19 21:15 Pulse Rate 61 11/09/19 01:35 Respiratory Rate 16 11/09/19 01:52 Blood Pressure 156/87 11/09/19 01:52 Pulse Oximetry 94 11/09/19 01:52 MDM - General Adult MDM Narrative: Medical decision making narrative: 79-year-old female with a history of heart disease and hypertension. She presented hypertensive. Her blood pressure currently is 161/86. She is received 10 mg of amlodipine. She is asymptomatic. Blood pressures are down to the 150s over 80s to 90s. She will be allowed home on amlodipine. She will take her pressures twice a day. She knows to return for any symptomatic episodes of hypertension, or other concerning symptoms. Lab Data: Labs: Lab Results 11/08/19 11/08/19 11/08/19 Range/Units 22:00 22:50 22:50 WBC 6.5 (4.0-10.0) 10^3/ uL RBC 3.97 L (4.1-5.3) 10^6/u L Hgb 12.4 (11.5-15.3) g/dL Hct 41.0 (37.0-47.0) % MCV 103.3 H (81-99) fL MCH 31.2 (28.0-34.0) pg MCHC 30.2 (30.0-36.0) g/dL RDW 13.2 (12.1-15.1) % Plt Count 165 (130-400) 10^3/c mm MPV 11.6 H (7.4-10.4) fL Neut % (Auto) 47.3 % Lymph % (Auto) 39.6 % [place] % (Auto) 8.8 % Eos % (Auto) 3.6 % Baso % (Auto) 0.5 % Neut # (Auto) 3.07 (1.8-7.7) 10^3/u L Lymph # (Auto) 2.6 (0.8-4.8) 10^3/u L [place] # (Auto) 0.6 (0.2-0.9) 10^3/u L Eos # (Auto) 0.2 (0.0-0.8) 10^3/u L Baso # (Auto) 0.0 (0.0-0.1) 10^3/u L Nucleated RBC % (a uto) 0 % Nucleated RBCs # 0.0 /100WBC Sodium 141 (136-145) mmol/L Potassium 4.2 (3.5-5.1) mmol/L Chloride 105 (98-107) mmol/L Carbon Dioxide 28 (22-29) mmol/L Anion Gap 12.2 (5-19) BUN 11 (8-23) mg/dL Creatinine 0.7 (0.5-0.9) mg/dL GFR Calculation Not Reportable Glucose 94 (65-115) mg/dL Calculated Osmolal ity 288 (285-295) mOsm/k g Calcium 9.7 (8.5-10.5) mg/dL Magnesium (1.7-2.3) mg/dL Total Bilirubin 0.3 (0.15-1.2) mg/dL AST 15 (0-32) U/L ALT 18 (0-33) U/L Alkaline Phosphata se 89 (35-105) IU/L Troponin T Gen 5 n g/L (0-10) ng/L NT-Pro-B Natriuret Pep (0-450) pg/mL Total Protein 6.5 L (6.6-8.7) g/dL Albumin 4.2 (3.5-5.2) g/dL Globulin 2.3 (1.3-4.6) g/dL Urine Color Yellow (Yellow) Urine Appearance Clear (CLEAR) Urine pH 5 (5-7) Ur Specific Gravit y 1.010 (1.005-1.030) Urine Protein Neg (Negative) Urine Glucose (UA) Norm (Normal) Urine Ketones Negative (Negative) Urine Blood Neg (Negative) Urine Nitrate Negative (Negative) Urine Bilirubin Neg (NEGATIVE) Urine Urobilinogen Norm (Negative) mg/dL Ur Leukocyte Ambar ase Negative (Negative) 11/08/19 11/08/19 Range/Units 22:50 22:50 WBC (4.0-10.0) 10^3/ uL RBC (4.1-5.3) 10^6/u L Hgb (11.5-15.3) g/dL Hct (37.0-47.0) % MCV (81-99) fL MCH (28.0-34.0) pg MCHC (30.0-36.0) g/dL RDW (12.1-15.1) % Plt Count (130-400) 10^3/c mm MPV (7.4-10.4) fL Neut % (Auto) % Lymph % (Auto) % [place] % (Auto) % Eos % (Auto) % Baso % (Auto) % Neut # (Auto) (1.8-7.7) 10^3/u L Lymph # (Auto) (0.8-4.8) 10^3/u L [place] # (Auto) (0.2-0.9) 10^3/u L Eos # (Auto) (0.0-0.8) 10^3/u L Baso # (Auto) (0.0-0.1) 10^3/u L Nucleated RBC % (a uto) % Nucleated RBCs # /100WBC Sodium (136-145) mmol/L Potassium (3.5-5.1) mmol/L Chloride (98-107) mmol/L Carbon Dioxide (22-29) mmol/L Anion Gap (5-19) BUN (8-23) mg/dL Creatinine (0.5-0.9) mg/dL GFR Calculation Glucose (65-115) mg/dL Calculated Osmolal ity (285-295) mOsm/k g Calcium (8.5-10.5) mg/dL Magnesium 2.1 (1.7-2.3) mg/dL Total Bilirubin (0.15-1.2) mg/dL AST (0-32) U/L ALT (0-33) U/L Alkaline Phosphata se (35-105) IU/L Troponin T Gen 5 n g/L 11 H (0-10) ng/L NT-Pro-B Natriuret Pep 417 (0-450) pg/mL Total Protein (6.6-8.7) g/dL Albumin (3.5-5.2) g/dL Globulin (1.3-4.6) g/dL Urine Color (Yellow) Urine Appearance (CLEAR) Urine pH (5-7) Ur Specific Gravit y (1.005-1.030) Urine Protein (Negative) Urine Glucose (UA) (Normal) Urine Ketones (Negative) Urine Blood (Negative) Urine Nitrate (Negative) Urine Bilirubin (NEGATIVE) Urine Urobilinogen (Negative) mg/dL Ur Leukocyte Ambar ase (Negative) Discharge Plan Discharge Patient Disposition: Home Clinical Impression: Essential hypertension Condition: Stable Prescriptions: New amlodipine 10 mg tablet 10 mg PO DAILY Qty: 30 RF: 0 No Action nitroglycerin [Nitrostat] 0.4 mg tablet, sublingual 0.4 mg SUBLINGUAL Q5M PRN (Reason: chest pain) RF: 0 lisinopril 20 mg tablet 20 mg PO DAILY RF: 0 omeprazole 40 mg capsule,delayed release(DR/EC) 40 mg PO DAILY RF: 0 meloxicam 15 mg tablet 7.5 mg PO DAILY RF: 0 Hold Instructions: Resume on 11/12/19. aspirin [Adult Aspirin Regimen] 81 mg tablet,delayed release (DR/EC) 81 mg PO DAILY RF: 0 atorvastatin 20 mg tablet 20 mg PO DAILY RF: 0 PreserVision Lutein 226 mg-200 unit -5 mg-0.8 mg capsule 1 cap PO DAILY RF: 0 metoprolol tartrate 25 mg Tablet 25 mg PO BID 30 Days Qty: 60 RF: 0 Discharge Orders: Discharge Order (Routine); Ordered 11/09/19 Ordered By: Alberto Roman Referrals: Parvez Kay, [Primary Care Provider] - 4-7 days Discharge Diet: Usual diet Discharge Activity: Resume usual activity Patient Instructions: Hypertension (ED) Activity Restrictions/Additional Instructions: Return for chest discomfort, shortness of breath, other concerning symptoms. Check your blood pressure twice daily, report numbers to your physician. If your blood pressure is staying above 150/90, you may take the medication prescribed. If it is not, hold the medicine, and discuss further treatment options with your doctor. Discharge Date/Time: 11/09/19 02:01 Coding Level of Care Code ED Client Experience Consultant for Petr Fwdaniel Exam Comprehensive
[2019-11-09 00:21] LABS: Add Urine Microscopic? NO
[2019-11-09 00:23] LABS: Bilirubin Urine Neg (NEGATIVE); Blood Urine Neg (Negative); Glucose Urine UA Norm (Normal); Ketones Urine Negative (Negative); Leukocyte Esterase Urine Negative (Negative); Nitrate Urine Negative (Negative); Protein Urine Neg (Negative); Urine Appearance Clear (CLEAR); Urine Color Yellow (Yellow); Urobilinogen Urine Norm (Negative); pH Urine 5 (5-7)
[2019-11-09 00:30] VITALS: BP 169/92; PULSE 61; RESP 12; O2SAT 93
--- NOTE | 2019-11-09 00:58 | XRR_ITS ---
PROCEDURE INFORMATION: Exam: XR Chest, 1 View Exam date and time: 11/09/2019 1:22 AM Age: 79 years old Clinical indication: Other: High blood pressure; Prior surgery; Surgery date: 6+ months; Surgery type: Stent, gb; Additional info: HTN TECHNIQUE: Imaging protocol: XR of the chest Views: 1 view. COMPARISON: CR XR chest 1V portable [id number] 11/02/2019 12:20 AM FINDINGS: Lungs: Unremarkable. No consolidation. Pleural space: Unremarkable. No pleural effusion. No pneumothorax. Heart/Mediastinum: Unremarkable. No cardiomegaly. Bones/joints: Unremarkable. Old fracture right 4th rib. XR/XR chest 1V portable [id number] IMPRESSION: No acute findings.
[2019-11-09 01:00] VITALS: BP 165/82; PULSE 66; RESP 16; O2SAT 91
[2019-11-09 01:35] VITALS: BP 156/87; PULSE 61; RESP 16; O2SAT 91
[2019-11-09 01:52] VITALS: BP 156/87; RESP 16; O2SAT 94
== END 2019-11-09 02:01 | disposition home or self-care (01) ==
PROVIDERS: Nurse Practitioner Family; Emergency Provider Emergency Medicine; PCP Electrodiagnostic Medicine
DX: I10 Essential (primary) hypertension (principal); Z79.82 Long term (current) use of aspirin; I25.10 Atherosclerotic heart disease of native coronary artery without angina pectoris; E78.5 Hyperlipidemia, unspecified; Z98.61 Coronary angioplasty status; Z87.891 Personal history of nicotine dependence
CPT/HCPCS: 12345; 71045; 80053; 81003; 83735; 83880; 84484; 85025; 93005; 99282; 99284

== ENCOUNTER 2019-12-06 10:13 | Outpatient (CLI) | payer MEDICARE, OTHER, SELFPAY ==
--- NOTE | 2019-12-06 11:00 | USCV_ITS ---
[place], [place] Age: 79 Gender: F : 1940 Exam Date: 12/06/2019 10:09 Ordering Phys: Ivett Jc Technologist: Nolvia Reich [place] [facility] [place]ication: COLD FEET LEG NUMBNESS Risk Factors: Unknown Previous Vascular Surgery: None RIGHT LEFT BP: 140.0 / BP: 138.0/ 0 0 Waveform Velocity (cm/s) Velocity (cm/s) Waveform Triphasic 104.7 Iliac Prox 103.5 Triphasic Triphasic 95.0 Iliac Mid 98.8 Biphasic Triphasic 76.7 Iliac Distal 87.1 Biphasic Biphasic 71.7 COMMERCIAL ARTIST 84.8 Biphasic Biphasic 93.7 SFA Prox 73.3 Biphasic Biphasic 67.6 SFA Mid 74.5 Biphasic Biphasic 68.4 SFA Dist 69.9 Biphasic Biphasic 38.9 POP 49.3 Biphasic Biphasic 30.5 REGISTERED NURSE CARDIAC 49.3 Biphasic Biphasic 44.9 DPA 47.0 Biphasic GUNNER 1.2 1.1 FINDINGS RT DPA 160 RT REGISTERED NURSE CARDIAC 155 LT DPA 140 LT REGISTERED NURSE CARDIAC 180 CONCLUSIONS Resting jame ABIs bilaterally Normal Doppler flow velocities. Minimal plaques in the iliac arteries bilaterally No significant arterial obstruction, based on the above findings. Dr Rey Iqbal MD [facility] (Electronically Signed) Final Date: 06 December 2019 14:06 S
== END 2019-12-06 10:14 | disposition home or self-care (01) ==
LOC: US 10:13
PROVIDERS: PCP Electrodiagnostic Medicine; Visit Provider Nurse Practitioner Family
DX: R20.0 Anesthesia of skin (principal)
CPT/HCPCS: 93925

== ENCOUNTER 2019-12-25 10:26 | Inpatient (IN) | payer MEDICARE, OTHER, SELFPAY ==
[2019-12-25] VITALS (45 sets, daily range): BP systolic 99–160; BP diastolic 61–83; PULSE 63–81; RESP 15–26; TEMP 37–37.1; O2SAT 89–100; BMI 24.7
--- NOTE | 2019-12-25 12:02 | W.ED.NAVMDI ---
HPI - Nausea/Vomiting/Diarrhea General: Chief complaint: Nausea/Vomiting/Diarrhea Stated complaint: n/v Time Seen by Provider: 12/25/19 11:39 History of Present Illness: HPI Narrative: 79-year-old female reports emergency room with complaint of nausea and vomiting with dry heaving through the night she has had chest and back pain generalized malaise. She has had diarrhea as well initially with a subjective fever this all began about 4 days ago. Worse overnight she did take a Zofran her daughter gave her which helped the nausea. The diarrhea has subsided. She denies any medication no hematemesis or coffee-ground emesis. She has had a slightly productive cough she is not normally on oxygen. At presentation on room air she is 90% with 2 L she goes up to the upper 90s. MD elicited complaint: nausea, vomiting and diarrhea (Initially had diarrhea now resolved) Onset (ago): day(s) (4) Associated nausea: Yes Associated abdominal pain: Yes (Patient reports because of the vomiting last night her abdominal wall is very sore) Location of pain: Diffuse Quality: cramping Exacerbating factors: none Relieving factors: none Associated symtoms: Reports headache(s), anorexia, malaise and nausea; Denies altered mental status, anxiety, bloating, change in vision, chest pain, cough, diaphoresis, decreased urine output, dizziness, dysuria, epistaxis, fatigue, fecal incontinence, fevers/chills, myalgias, numbness, palpitations, rash, short of breath, syncope, tenesmus, tinnitus or weakness Review of Systems Const: Reports: malaise; Denies: fatigue or diaphoresis Eyes: Denies: change in vision ENMT: Denies: tinnitus or epistaxis Card: Denies: chest pain, palpitations or syncope Resp: Denies: dyspnea, productive cough, non-productive cough or wheezing GI: Reports: nausea; Denies: bloating or fecal incontinence : Denies: dysuria Musc: Denies: neck pain, back pain, extremity pain, extremity swelling, joint pain or joint swelling Skin/Breast: Denies: rash, pruritus or erythema Neuro: Reports: headache(s); Denies: dizziness Psych: Denies: anxiety Endo: Denies: polyuria, polydipsia, tired all the time or cold intolerance Eddie/Lymph: Denies: easy bruising, easy bleeding, petechiae, enlarged lymph nodes or tender lymph nodes PFSH ED PFSH: Medical History (Updated 12/26/19 @ 06:09 by Brandon Villeda DO) Carotid stenosis Coronary artery disease Dyslipidemia Essential hypertension Flexor tenosynovitis of finger Osteoarthritis of carpometacarpal joint of left thumb Osteoporosis PMR (polymyalgia rheumatica) Sleep apnea Trigger finger, left index finger Surgical History (Updated 12/25/19 @ 18:18 by Gaston Bolivar MD) H/O arthroscopic knee surgery H/O cataract extraction H/O hysterectomy for benign disease History of cholecystectomy Hx of coronary angioplasty Family History Other CAD (coronary artery disease) Cancer Diabetes Hypertension Rheumatoid arthritis Denies family history of Chronic kidney disease (CKD) Lung disease Social History Smoking and tobacco status: former smoker Quit status (tobacco): has quit using tobacco Year quit tobacco: 2011.5 PPD x 50 Years Alcohol intake: never Desire information about alcohol rehabilitation?: No Lives independently: Yes Household members: none Housing: House Marital status: / Current occupational status: employed Current occupational exposures/hazards: No History of recent travel: No Current gender identity: Female Physical Exam Const: COMMON NORMALS: no acute distress EXAM LIMITATIONS: no altered mental status GENERAL APPEARANCE: cooperative and comfortable ORIENTATION/CONSCIOUSNESS: Yes awake, Yes oriented to person, Yes oriented to place and Yes oriented to time HENMT: COMMON NORMALS: normocephalic, atraumatic and hearing grossly normal bilaterally HEAD & SCALP: normocephalic and atraumatic Eye: COMMON NORMALS: Equal, round and reactive pupils present, EOMs intact bilaterally, conjunctivae normal and no scleral icterus CONJUNCTIVA: Yes conjunctivae normal PUPIL: Yes Equal, round and reactive pupils present Neck/C-Spine: COMMON NORMALS: full ROM, no lymphadenopathy, supple and no JVD Lymph: LYMPHATIC: no lymphadenopathy noted and no lymphedema noted Resp: AUSCULTATION: rhonchi lower bilaterally Cardio: COMMON NORMALS: no JVD, regular rate, regular rhythm and No murmurs present (Cardio) RATE: regular rate RHYTHM: regular rhythm GI: COMMON NORMALS: Soft to palpation and No hepatosplenomegaly present AUSCULTATION: Yes normoactive bowel sounds PALPATION: Yes Soft to palpation, Yes Tenderness to palpation present (GI) (epigastric) Details: LUQ, No Guarding due to palpation present (GI) and Yes No hepatosplenomegaly present Extremity: COMMON NORMALS: normal to inspection, capillary refill normal, no clubbing, cyanosis or edema, no calf tenderness and no pedal edema Neuro: SENSORIUM/ORIENTATION: Yes oriented to person, Yes oriented to place and Yes oriented to time Skin: COMMON NORMALS: no rashes or lesions noted GENERAL SKIN EXAM: no rashes or lesions noted Course Vital Signs: Vital signs: Vital Signs Temperature 99.1 F 12/27/19 03:53 Pulse Rate 69 12/27/19 03:53 Respiratory Rate 16 12/27/19 03:53 Blood Pressure 111/63 12/27/19 03:53 Pulse Oximetry 94 12/27/19 03:53 MDM - Nausea/Vomiting/Diarrhea MDM Narrative: Medical decision making narrative: Discussed with both Dr. Menon and Dr. Bolivar. Dr. Menon is covering the Ally ultimately we decided to admit her to the VICU. I also discussed Dr. Cerrato. Comparing her CT today to a previous chest CT which she could see parts of the common bile duct and intrahepatic ducts did not look to Dr. Cerrato's if there is been much change most of it looks like post cholecystectomy physiologic changes. Ultrasound showed similar findings with no evidence of significant ductal dilatation Dr. Cerrato did not recommend MRCP. Her pattern on her liver functions is clearly intraparenchymal. Acute hepatitis panel is pending. Discussed results and findings with the patient. Lab Data: Labs: Lab Results 12/25/19 12/25/19 12/25/19 Range/Units 12:00 12:00 12:00 WBC 4.5 (4.0-10.0) 10^3/ uL RBC 3.86 L (4.1-5.3) 10^6/u L Hgb 12.0 (11.5-15.3) g/dL Hct 39.3 (37.0-47.0) % MCV 101.8 H (81-99) fL MCH 31.1 (28.0-34.0) pg MCHC 30.5 (30.0-36.0) g/dL RDW 12.9 (12.1-15.1) % Plt Count 155 (130-400) 10^3/c mm MPV 11.1 H (7.4-10.4) fL Neut % (Auto) 71.7 % Lymph % (Auto) 21.7 % [place] % (Auto) 6.0 % Eos % (Auto) 0.2 % Baso % (Auto) 0.2 % Neut # (Auto) 3.24 (1.8-7.7) 10^3/u L Lymph # (Auto) 1.0 (0.8-4.8) 10^3/u L [place] # (Auto) 0.3 (0.2-0.9) 10^3/u L Eos # (Auto) 0.0 (0.0-0.8) 10^3/u L Baso # (Auto) 0.0 (0.0-0.1) 10^3/u L Nucleated RBC % (a uto) 0 % Nucleated RBCs # 0.0 /100WBC PT (12.1-14.9) SECO NDS INR (0.8-1.2) APTT (23.9-36.7) SECO NDS Fibrinogen 409 (174-498) mg/dL D-Dimer 0.99 H (0-0.59) ug/mIFE U Specimen Type Sample Site ABG pH (7.35-7.45) ABG pCO2 (35-45) mmHg ABG pO2 (80.0-100.0) mmH g ABG HCO3 (22-26) mmol/L ABG Base Excess (-2.0-2.0) mmol/ L Elvis Test Hematocrit (37-47) % O2 Delivery Device FiO2 % Sales And Management Trainee ID Sodium 139 (136-145) mmol/L Potassium 3.9 (3.5-5.1) mmol/L Chloride 104 (98-107) mmol/L Carbon Dioxide 27 (22-29) mmol/L Anion Gap 11.9 (5-19) BUN 13 (8-23) mg/dL Creatinine 0.7 (0.5-0.9) mg/dL GFR Calculation Not Reportable Glucose 103 (65-115) mg/dL Calculated Osmolal ity 288 (285-295) mOsm/k g Lactic Acid (0.5-2.2) mmol/L Calcium 9.4 (8.5-10.5) mg/dL Magnesium 2.2 (1.7-2.3) mg/dL Total Bilirubin 0.7 (0.15-1.2) mg/dL AST 984 H (0-32) U/L ALT 842 H (0-33) U/L Alkaline Phosphata se 175 H (35-105) IU/L Lactate Dehydrogen ase (135-214) U/L Creatine Kinase (26-192) U/L C-Reactive Protein (0.0-4.9) mg/L Total Protein 6.1 L (6.6-8.7) g/dL Albumin 3.9 (3.5-5.2) g/dL Globulin 2.2 (1.3-4.6) g/dL Triglycerides (0-150) mg/dL Lipase 1048 H (13-60) U/L Procalcitonin (0-0.5) ng/mL Serum Ketones Negative (Negative) SARS-CoV-2 Ag (Rap id) (Negative) 12/25/19 12/25/19 12/25/19 Range/Units 12:00 12:00 12:00 WBC (4.0-10.0) 10^3/ uL RBC (4.1-5.3) 10^6/u L Hgb (11.5-15.3) g/dL Hct (37.0-47.0) % MCV (81-99) fL MCH (28.0-34.0) pg MCHC (30.0-36.0) g/dL RDW (12.1-15.1) % Plt Count (130-400) 10^3/c mm MPV (7.4-10.4) fL Neut % (Auto) % Lymph % (Auto) % [place] % (Auto) % Eos % (Auto) % Baso % (Auto) % Neut # (Auto) (1.8-7.7) 10^3/u L Lymph # (Auto) (0.8-4.8) 10^3/u L [place] # (Auto) (0.2-0.9) 10^3/u L Eos # (Auto) (0.0-0.8) 10^3/u L Baso # (Auto) (0.0-0.1) 10^3/u L Nucleated RBC % (a uto) % Nucleated RBCs # /100WBC PT 13.20 (12.1-14.9) SECO NDS INR 0.97 (0.8-1.2) APTT 27.7 (23.9-36.7) SECO NDS Fibrinogen (174-498) mg/dL D-Dimer (0-0.59) ug/mIFE U Specimen Type Sample Site ABG pH (7.35-7.45) ABG pCO2 (35-45) mmHg ABG pO2 (80.0-100.0) mmH g ABG HCO3 (22-26) mmol/L ABG Base Excess (-2.0-2.0) mmol/ L Elvis Test Hematocrit (37-47) % O2 Delivery Device FiO2 % Sales And Management Trainee ID Sodium (136-145) mmol/L Potassium (3.5-5.1) mmol/L Chloride (98-107) mmol/L Carbon Dioxide (22-29) mmol/L Anion Gap (5-19) BUN (8-23) mg/dL Creatinine (0.5-0.9) mg/dL GFR Calculation Glucose (65-115) mg/dL Calculated Osmolal ity (285-295) mOsm/k g Lactic Acid 0.7 (0.5-2.2) mmol/L Calcium (8.5-10.5) mg/dL Magnesium (1.7-2.3) mg/dL Total Bilirubin (0.15-1.2) mg/dL AST (0-32) U/L ALT (0-33) U/L Alkaline Phosphata se (35-105) IU/L Lactate Dehydrogen ase 725 H (135-214) U/L Creatine Kinase 160 (26-192) U/L C-Reactive Protein 12.2 H (0.0-4.9) mg/L Total Protein (6.6-8.7) g/dL Albumin (3.5-5.2) g/dL Globulin (1.3-4.6) g/dL Triglycerides (0-150) mg/dL Lipase (13-60) U/L Procalcitonin 0.30 (0-0.5) ng/mL Serum Ketones (Negative) SARS-CoV-2 Ag (Rap id) (Negative) 12/25/19 12/25/19 12/25/19 Range/Units 12:00 12:40 12:54 WBC (4.0-10.0) 10^3/ uL RBC (4.1-5.3) 10^6/u L Hgb (11.5-15.3) g/dL Hct (37.0-47.0) % MCV (81-99) fL MCH (28.0-34.0) pg MCHC (30.0-36.0) g/dL RDW (12.1-15.1) % Plt Count (130-400) 10^3/c mm MPV (7.4-10.4) fL Neut % (Auto) % Lymph % (Auto) % [place] % (Auto) % Eos % (Auto) % Baso % (Auto) % Neut # (Auto) (1.8-7.7) 10^3/u L Lymph # (Auto) (0.8-4.8) 10^3/u L [place] # (Auto) (0.2-0.9) 10^3/u L Eos # (Auto) (0.0-0.8) 10^3/u L Baso # (Auto) (0.0-0.1) 10^3/u L Nucleated RBC % (a uto) % Nucleated RBCs # /100WBC PT (12.1-14.9) SECO NDS INR (0.8-1.2) APTT (23.9-36.7) SECO NDS Fibrinogen (174-498) mg/dL D-Dimer (0-0.59) ug/mIFE U Specimen Type Arterial Sample Site Radial, left ABG pH 7.39 (7.35-7.45) ABG pCO2 42.4 (35-45) mmHg ABG pO2 56.2 L (80.0-100.0) mmH g ABG HCO3 25.8 (22-26) mmol/L ABG Base Excess 0.7 (-2.0-2.0) mmol/ L Elvis Test Pos Hematocrit 37.8 (37-47) % O2 Delivery Device Room air FiO2 21.0 % Sales And Management Trainee ID Ed Sodium (136-145) mmol/L Potassium (3.5-5.1) mmol/L Chloride (98-107) mmol/L Carbon Dioxide (22-29) mmol/L Anion Gap (5-19) BUN (8-23) mg/dL Creatinine (0.5-0.9) mg/dL GFR Calculation Glucose (65-115) mg/dL Calculated Osmolal ity (285-295) mOsm/k g Lactic Acid (0.5-2.2) mmol/L Calcium (8.5-10.5) mg/dL Magnesium (1.7-2.3) mg/dL Total Bilirubin (0.15-1.2) mg/dL AST (0-32) U/L ALT (0-33) U/L Alkaline Phosphata se (35-105) IU/L Lactate Dehydrogen ase (135-214) U/L Creatine Kinase (26-192) U/L C-Reactive Protein (0.0-4.9) mg/L Total Protein (6.6-8.7) g/dL Albumin (3.5-5.2) g/dL Globulin (1.3-4.6) g/dL Triglycerides 36 (0-150) mg/dL Lipase (13-60) U/L Procalcitonin (0-0.5) ng/mL Serum Ketones (Negative) SARS-CoV-2 Ag (Rap id) Positive H (Negative) Discharge Plan Discharge Patient Disposition: Admitted As Inpatient Admit Provider: Gaston Bolivar Clinical Impression: Acute pancreatitis, Acute hepatitis, COVID-19 virus detected Condition: Stable Referrals: Parvez Kay DO [Primary Care Provider] - 1-3 days (Virtual appointment needs scheduled at discharge.) Discharge Date/Time: 12/25/19 20:50 Coding Level of Care Code ED Ivory Carver for Chg Fwd Exam Comprehensive
--- NOTE | 2019-12-25 12:17 | XRR_ITS ---
PROCEDURE INFORMATION: Exam: XR Chest, 1 View Exam date and time: 12/25/2019 12:19 PM Age: 79 years old Clinical indication: Dyspnea TECHNIQUE: Imaging protocol: XR of the chest Views: 1 view. COMPARISON: CR XR chest 1V portable [id number] 11/09/2019 1:11 AM FINDINGS: Lungs: Emphysema Lungs are well aerated without a focal area of consolidation. Pleural space: Unremarkable. No pleural effusion. No pneumothorax. Heart/Mediastinum: The cardiac silhouette appears enlarged, some of which is magnification related to the AP projection. Bones/joints: Unremarkable. XR/XR chest 1V portable [id number] IMPRESSION: Lungs are well aerated without a focal area of consolidation.
[2019-12-25 12:24] LABS: Basophils % 0.2 %; Eosinophils % 0.2 %; Hematocrit 39.3 % (37.0-47.0); Lymphocytes % 21.7 %; Mean Corpuscular HGB Conc 30.5 g/dL (30.0-36.0); Mean Corpuscular Hemoglobin 31.1 pg (28.0-34.0); Mean Corpuscular Volume 101.8 fL (81-99); Mean Platelet Volume 11.1 fL (7.4-10.4); Monocytes # 0.3 10^3/uL (0.2-0.9); Neutrophils # 3.24 10^3/uL (1.8-7.7); Neutrophils % 71.7 %; Nucleated Red Blood Cells % 0 %; Platelet Count 155 10^3/cmm (130-400); Red Blood Count 3.86 10^6/uL (4.1-5.3); Red Cell Distribution Width 12.9 % (12.1-15.1); White Blood Count 4.5 10^3/uL (4.0-10.0)
[2019-12-25 12:30] LABS: Ketone (Acetest) Serum Negative (Negative)
[2019-12-25 12:37] LABS: Lactic Sepsis W/Reflex 0.7 mmol/L (0.5-2.2)
[2019-12-25 12:38] LABS: Albumin Level 3.9 g/dL (3.5-5.2); Alkaline Phosphatase 175 IU/L (35-105); Anion Gap 11.9 (5-19); Blood Urea Nitrogen 13 mg/dL (8-23); Calcium 9.4 mg/dL (8.5-10.5); Carbon Dioxide 27 mmol/L (22-29); Chloride 104 mmol/L (98-107); Globulin 2.2 g/dL (1.3-4.6); Glucose 103 mg/dL (65-115); Magnesium 2.2 mg/dL (1.7-2.3); Osmolality Calculated 288 mOsm/kg (285-295); Potassium 3.9 mmol/L (3.5-5.1); Sodium 139 mmol/L (136-145); Total Bilirubin 0.7 mg/dL (0.15-1.2); Total Protein 6.1 g/dL (6.6-8.7)
[2019-12-25] MEDS: ondansetron 2 mg/ML SDV 2 mL 4 MG IVP (12:40)
[2019-12-25] MEDS: sodium chloride 0.9% 1,000 ML 999 ML IV (12:40)
[2019-12-25 12:46] LABS: Fibrinogen 409 mg/dL (174-498)
[2019-12-25 12:49] LABS: Alanine Aminotransferase 842 U/L (0-33)
[2019-12-25 12:58] LABS: C Reactive Protein 12.2 mg/L (0.0-4.9); Creatine Phosphokinase 160 U/L (26-192); Lactate Dehydrogenase 725 U/L (135-214)
[2019-12-25 13:01] LABS: Aspartate Amino Transferase 984 U/L (0-32); Lipase 1048 U/L (13-60)
--- NOTE | 2019-12-25 13:03 | CT_ITS ---
WS: [id number] CT ABDOMEN AND PELVIS WITH CONTRAST HISTORY: abd pain TECHNIQUE: Imaging performed of the abdomen and pelvis with IV contrast. Single phase imaging of the abdomen. Coronal and sagittal reformats are submitted. All CT scans at [facility] use at least one of these dose optimization techniques: automated exposure control; mA and/or kV adjustment per patient size (includes targeted exams where dose is matched to clinical indication); or iterativ e reconstruction. IV CONTRAST: Omnipaque 300; 95 mL IV. Oral contrast: No DLP: 549.57 mGy.cm COMPARISON: 10/30/2017 Lower thorax: Chronic emphysematous and dependent changes at the lung bases. Mild enlargement of the heart. No hiatal hernia. Liver/biliary system: Liver is normal size. There is mild intrahepatic duct dilatation which is new s matt 10/30/2017. There was mild dilatation noted on chest CT angiogram of 11/02/2019. Common bile duct measures 10 mm. Cyst in the far lateral LEFT lobe of the liver. Cyst measures 6 mm. Gallbladder: Prior cholecystectomy. Pancreas: There is mild stranding around the pancreas. The common bile duct at the pancreatic head is slightly enlarged at 9.7 mm. No obstructing stone or mass. The pancreatic duct is also top normal si ze at 2 mm. Spleen: Normal. Adrenal glands: Normal. Right kidney: Normal. Left kidney: Cortical cyst mid kidney measures 5 mm. Aorta: Mild atherosclerosis with no aneurysm. Lymphadenopathy: None. Free fluid: None. GI tract: Normal appendix. Mild fecal retention. No obstructive pattern. Sigmoid and distal colon div erticula. No acute inflammation. Abdominal wall: Unremarkable abdominal wall. No hernia. Pelvis: Air in minimally distended urinary bladder may be due to recent catheterization. Bones: No osteoblastic or osteolytic disease. CT/CT abdomen pelvis w con* [id number] IMPRESSION: 1. Status post prior cholecystectomy. 2. Intrahepatic and extrahepatic bile duct dilatation. No stone in the distal common bile duct or pancreatic head mass identified. May be physiologic. Corre late with biochemical analysis. 3. Very mild stranding around the pancreas may indicate early acute pancreatit is. 4. Atherosclerosis aorta. 5. Normal appendix. 6. No ascites. 7. Air in the urinary bladder is probably from recent catheterization.
[2019-12-25 13:05] LABS: ABG PCO2 42.4 mmHg (35-45); ABG PH Result 7.39 (7.35-7.45); Arterial Blood Gas Hematocrit 37.8 % (37-47); Base Excess ABG 0.7 mmol/L (-2.0-2.0); Blood Gas Allen Test Pos; Blood Gas Operator Identificat ED; Blood Gas Sample Site Radial, left; Blood Gas Sample Type Arterial; HCO3 ABG 25.8 mmol/L (22-26); Oxygen Device ROOM AIR; PO2 ABG 56.2 mmHg (80.0-100.0)
[2019-12-25 13:16] LABS: D Dimer 0.99 ug/mIFEU (0-0.59)
[2019-12-25 13:28] LABS: SARS Covid-2 Antigen Positive (Negative)
[2019-12-25 14:52] LABS: INR 0.97 (0.8-1.2); Partial Thromboplastin Time 27.7 SECONDS (23.9-36.7)
--- NOTE | 2019-12-25 14:54 | US_ITS ---
WS: [id number] RIGHT UPPER QUADRANT ULTRASOUND HISTORY: pancreatitis, elevated LFTs COMPARISON: 10/28/2017 Liver: 16.3 cm in length. Normal size liver. Mild distention of the central bile ducts and common homa e duct. May be physiologic. Gallbladder: Prior cholecystectomy. CBD: 1.0 cm Pancreas: Normal size and echogenicity. Right kidney: 11.9 cm in length. Normal size and echogenicity. No hydronephrosis or mass. Aorta and IVC: Mild atherosclerosis aorta. No ascites. US/US gall bladder [id number] IMPRESSION: 1. Prior cholecystectomy. 2. Mild common bile duct dilatation to 1.0 cm. May be physiologic in based upo n the cholecystectomy.
[2019-12-25] MEDS: iohexol 300 mg/mL 100 mL Btl IV (15:20)
[2019-12-25 17:46] LABS: Triglycerides 36 mg/dL (0-150)
--- NOTE | 2019-12-25 18:11 | PM.HP ---
Providers/Chief Complaint Admitting Physician: Gaston Bolivar MD Primary Care Provider: Parvez Kay DO Chief Complaint: n/v History of Present Illness April Schwartz is a 79 year old female presents to emergency department with severe epigastric area sharp abdominal pain radiating to her back. Reports that intense pain lasted approximately 1 hour and then started gradually subsiding but she still continued to have pain throughout the night up until she presented to ER and was given pain medication. She had some febrile episodes for the last several days and tested positive for COVID-19. She reports chronic mostly dry cough because of sinus drainage which she reports is unchanged. She denies shortness of breath or chest pain. Her pain is pointed at the epigastric area. She denies any alleviating or aggravating factors. She does report occasionally taking ibuprofen for chronic aches and pains. Patient reports that she had severe episodes of dry heaving but never vomited. She denies any diarrhea. Her last bowel movement was 2 days ago which was normal formed stool without evidence of melena or hematochezia. She reports occasional episodes of diarrhea off and on for a long period of time but not lately. In emergency department patient was further evaluated with CT scan showing intrahepatic and extrahepatic bile duct dilation which appears to be post cholecystectomy. She does have evidence of acute pancreatitis with elevated lipase. Her elevated liver enzymes are hepatic in origin. Bilirubin is normal. Her LDH is elevated and appears to be related to acute hepatitis. Her synthetic function appears to be intact. She had minimally elevated D-dimer. She had gallbladder ultrasound performed again showing no evidence of common bile duct stone or mass. Her symptoms much improved and ER after 1 dose of Zofran. Patient usually is relatively active and still works. Review of Systems Const: Reports: fever(s); Denies: chills Eyes: Denies: change in vision ENMT: Denies: throat pain or change in hearing Card: Denies: chest pain, edema or lightheadedness Resp: Denies: dyspnea or productive cough GI: Reports: abdominal pain and nausea; Denies: vomiting, dysphagia, diarrhea, constipation, hematochezia or melena : Denies: difficulty voiding Musc: Denies: joint pain or joint swelling Skin/Breast: Denies: rash or erythema Neuro: Denies: headache(s) or weakness in extremities Psych: Denies: depression or suicidal ideation Endo: Denies: excessive sweating Eddie/Lymph: Denies: easy bleeding or tender lymph nodes All/Imm: Denies: throat swelling Medications/Allergies Home Medications Medication Instructions Recorded Confirmed Last Taken Type aspirin 81 mg tablet,delayed 81 mg PO DAILY 04/17/19 11/19/19 1 Day Ago History release ~11/01/19 atorvastatin 20 mg tablet 20 mg PO DAILY 04/17/19 11/19/19 1 Day Ago History ~11/01/19 lisinopril 20 mg tablet 20 mg PO DAILY 04/17/19 11/19/19 1 Day Ago History ~11/01/19 meloxicam 15 mg tablet 7.5 mg PO DAILY tab 04/17/19 11/19/19 1 Day Ago History ~11/01/19 nitroglycerin 0.4 mg sublingual 0.4 mg SUBLINGUAL Q5M PRN 04/17/19 11/19/19 1 Day Ago History tablet ~11/01/19 omeprazole 40 mg capsule,delayed 40 mg PO DAILY 04/17/19 11/19/19 1 Day Ago History release ~11/01/19 vit C-vit [id number] ox-lutein 1 cap PO DAILY cap 04/17/19 11/19/19 1 Week Ago History 226 mg-200 unit-5 mg-0.8 mg capsule ~10/26/19 amlodipine 10 mg PO DAILY #30 tab 11/09/19 11/19/19 Unknown Rx Allergies Allergy/AdvReac Type Severity Reaction Status Date / Time naproxen [From Aleve] Allergy Intermediate RASH Verified 12/25/19 10:54 PFSH Acute PFSH: Medical History (Updated 12/25/19 @ 18:26 by Gaston Bolivar MD) Carotid stenosis Coronary artery disease Dyslipidemia Essential hypertension Flexor tenosynovitis of finger Osteoarthritis of carpometacarpal joint of left thumb Osteoporosis PMR (polymyalgia rheumatica) Sleep apnea Trigger finger, left index finger Surgical History (Updated 12/25/19 @ 18:18 by Gaston Bolivar MD) H/O arthroscopic knee surgery H/O cataract extraction H/O hysterectomy for benign disease History of cholecystectomy Hx of coronary angioplasty Family History Other CAD (coronary artery disease) Cancer Diabetes Hypertension Rheumatoid arthritis Denies family history of Chronic kidney disease (CKD) Lung disease Social History Smoking and tobacco status: former smoker Quit status (tobacco): has quit using tobacco Year quit tobacco: 2011 -1.5 PPD x 50 Years Alcohol intake: never Desire information about alcohol rehabilitation?: No Lives independently: Yes Household members: none Housing: House Marital status: / Current occupational status: employed Current occupational exposures/hazards: No History of recent travel: No Current gender identity: Female Vitals/I&O/Wt Last Vital Signs Temp 98.8 F 12/25/19 10:48 Pulse 79 12/25/19 16:00 Resp 20 H 12/25/19 16:00 BP 119/64 12/25/19 13:00 Pulse Ox 100 12/25/19 16:00 Weight last 48 hrs Weight 72.575 kg Physical Exam Const: COMMON NORMALS: no acute distress, patient oriented x3 and alert HENMT: COMMON NORMALS: normocephalic and atraumatic HEAD & SCALP: normocephalic and atraumatic Eye: COMMON NORMALS: EOMs intact bilaterally, conjunctivae normal and no scleral icterus CONJUNCTIVA: Yes conjunctivae normal Neck/C-Spine: COMMON NORMALS: no lymphadenopathy and no meningeal signs Lymph: LYMPHATIC: no lymphadenopathy noted Chest: COMMONS NORMALS: normal palpation of entire chest wall Resp: COMMON NORMALS: No use of accessory muscles and clear to auscultation bilaterally AUSCULTATION: clear to auscultation bilaterally Cardio: COMMON NORMALS: regular rate, regular rhythm and No murmurs present (Cardio) RATE: regular rate RHYTHM: regular rhythm OTHER: No lower extremity edema GI: COMMON NORMALS: Soft to palpation PALPATION: Yes Soft to palpation and Yes Tenderness to palpation present (GI) (Epigastric area.) RECTAL EXAM: deferred : COMMON NORMALS: Yes no CVA tenderness BLADDER/KIDNEY EXAM: Yes no CVA tenderness Back/Pelvis: COMMON NORMALS: no CVA tenderness and thoracic and lumbar spine normal to inspection Extremity: COMMON NORMALS: normal to inspection and capillary refill normal Neuro: COMMON NORMALS: patient oriented x3 and no focal motor deficits SENSORIUM/ORIENTATION: Yes alert MENINGEAL SIGNS: Yes no meningeal signs Psych: COMMON NORMALS: mental status grossly normal, Normal thought process present and cooperative THOUGHT PROCESS: Normal thought process present Skin: COMMON NORMALS: no rashes or lesions noted GENERAL SKIN EXAM: no rashes or lesions noted Data : 12/25/19 12:00 12/25/19 12:00 A&P Assessment and plan (1) Acute pancreatitis: This appears to be related to bowel inflammation secondary to NSAID induced gastritis/enteritis. Status: Acute (2) Acute hepatitis: This could be a result of viral infection including COVID-19. Status: Acute (3) COVID-19 virus detected: Status: Acute (4) Coronary artery disease: Status: Acute (5) Essential hypertension: Status: Acute Additional A&P Information PLAN: Admit to viral ICU. IV hydration with LR. Monitor urinary output. Start patient on high-dose PPI for suspected NSAID induced gastritis/enteritis Monitor liver enzymes. Acute hepatitis panel was requested in ER. We will avoid steroid therapy at this point and avoid NSAIDs. Lovenox for DVT prophylaxis Dr. Villeda discussed case with Dr. Cerrato who did not think that patient had any obstructive process in the common bile duct therefore no further evaluation with MRCP will be requested especially in view of patient's mostly hepatic pattern of liver enzyme elevation. I cannot find EKG and therefore will request long. Enzymes negative. Patient had previous history of coronary artery disease requiring stent placement many years ago. Monitor respiratory status. Attestations Medical Necessity Statement*: Patient with acute hepatitis and pancreatitis requires close ICU monitoring and treatment in view of positive COVID-19 test. I expect patient will require more than 2 midnights. Time Spent in Patient Care: Greater than 35 minutes Coding Level of Care Code Acute Family Advocate for [facility] Fwd Exam Comprehensive Diagnoses Acute pancreatitis K85.90 Acute hepatitis B17.9 COVID-19 virus detected U07.1 Coronary artery disease I25.10 Essential hypertension I10
--- NOTE | 2019-12-25 18:37 | ECG_ITS ---
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 Measurements Intervals [place] Rate: 73 P: 93 [place]: 168 QRS: 54 QRSD: 90 T: 63 QT: 380 QTc: 421 Interpretive Statements SINUS RHYTHM Compared to ECG 11/08/2019 23:02:13 No significant changes Electronically Signed On 12-27-2019 18:19:21 CDT by Nazanin Rosenthal M.D. [id number]
[2019-12-25] MEDS: lactated ringers 1,000 ML 75 ML IV (21:31)
[2019-12-25] MEDS: pantoprazole 40 mg SDV IVP (21:31)
[2019-12-25] MEDS: enoxaparin 40 mg/0.4 mL Syringe SUBCUT (21:32)
[2019-12-25] MEDS: D5-NS 0.45% + KCL 20 mEq 20 MEQ/1,000 ML BAG 100 MEQ IV (21:32)
[2019-12-25 22:40] LABS: Triglycerides 42 mg/dL (0-150)
[2019-12-25 22:57] LABS: Add Urine Microscopic? NO
[2019-12-25 23:03] LABS: Bilirubin Urine Neg (Negative); Blood Urine Neg (Negative); Glucose Urine UA Norm (Normal); Ketones Urine 2+ (Negative); Leukocyte Esterase Urine Negative (Negative); Nitrate Urine Negative (Negative); Protein Urine Neg (Negative); Specific Gravity, Urine 1.015 (1.005-1.030); Urine Appearance Clear (CLEAR); Urine Color Yellow (Yellow); Urobilinogen Urine Norm (Negative); pH Urine 5 (5-7)
[2019-12-26] VITALS (166 sets, daily range): BP systolic 108–160; BP diastolic 55–83; PULSE 64–92; RESP 12–38; TEMP 36.9–38.2; O2SAT 85–99
--- NOTE | 2019-12-26 01:47 | PC.NURSE ---
ADMISSION Patient admitted around 2114 last night. Urine sample, hepatitis, and triglycerides sent down. Patient complained of minor lower back pain and abdominal pain, but did not want any pain medication. Patient was told that if she had increased pain to let nurse know for pain medication. 2nd IV established in right wrist for fluid administration. Patient requested flu vaccination, it was given. Patient up to bedside commode before nurse left room to void with minimal assistance. Patient has been sleeping since about 2214.
--- NOTE | 2019-12-26 01:53 | PC.NURSE ---
PATIENT BELONGINGS Purse, clothing, house shoes, phone and phone cargo mate, glasses, hearing aides.
[2019-12-26 02:38] LABS: Hepatitis A Antibody IgM Non-Reactive (Nonreactive); Hepatitis B Core IgM Non-Reactive (Nonreactive); Hepatitis B Surface Antigen Non-Reactive (Nonreactive); Hepatitis C Virus Antibody Non-Reactive (Nonreactive)
[2019-12-26 05:41] LABS: Basophils % 0.3 %; Eosinophils % 0.6 %; Hematocrit 39.4 % (37.0-47.0); Hemoglobin 11.8 g/dL (11.5-15.3); Lymphocytes # 1.1 10^3/uL (0.8-4.8); Lymphocytes % 31.1 %; Mean Corpuscular HGB Conc 29.9 g/dL (30.0-36.0); Mean Corpuscular Hemoglobin 31.6 pg (28.0-34.0); Mean Corpuscular Volume 105.6 fL (81-99); Mean Platelet Volume 11.5 fL (7.4-10.4); Monocytes # 0.3 10^3/uL (0.2-0.9); Monocytes % 7.6 %; Neutrophils # 2.07 10^3/uL (1.8-7.7); Neutrophils % 60.1 %; Nucleated Red Blood Cells % 0 %; Platelet Count 143 10^3/cmm (130-400); Red Blood Count 3.73 10^6/uL (4.1-5.3); Red Cell Distribution Width 13.2 % (12.1-15.1); White Blood Count 3.4 10^3/uL (4.0-10.0)
--- NOTE | 2019-12-26 05:57 | PC.NURSE ---
ACTIVITY Patient has rested nearly all of shift and stated that she rested well. No complaints of anything but minimal pain at this time. Morning labs drawn and patient assisted to BSC with minimal assistance.
--- NOTE | 2019-12-26 05:58 | PC.NURSE ---
OXYGEN Patient came from ER on 3.5L NC. Patient weaned down by nurse to 1L and patients oxygen stayed above 93% even with deep sleep while lying flat or on side. Patient did state that she does wear CPAP at home but only when she wants to. Patient had no decreases in oxygen while sleeping or awake. Patient remains at 1L, respiratory notified. Patient has been coughing but very little and states that is normal for her. Patient also stated that she has chronic sinus drainage. Patient denies any shortness of breath at this time.
[2019-12-26 06:02] LABS: INR 1.07 (0.8-1.2)
[2019-12-26] MEDS: pantoprazole 40 mg SDV IVP ×2 (06:11→09:53)
[2019-12-26 06:23] LABS: Magnesium 2.1 mg/dL (1.7-2.3)
[2019-12-26 06:25] LABS: Alanine Aminotransferase 570 U/L (0-33); Albumin Level 3.7 g/dL (3.5-5.2); Alkaline Phosphatase 171 IU/L (35-105); Anion Gap 10.5 (5-19); Aspartate Amino Transferase 395 U/L (0-32); Blood Urea Nitrogen 10 mg/dL (8-23); Calcium 8.4 mg/dL (8.5-10.5); Carbon Dioxide 28 mmol/L (22-29); Chloride 103 mmol/L (98-107); Globulin 2.1 g/dL (1.3-4.6); Glucose 97 mg/dL (65-115); Lipase 261 U/L (13-60); Osmolality Calculated 285 mOsm/kg (285-295); Potassium 3.5 mmol/L (3.5-5.1); Sodium 138 mmol/L (136-145); Total Bilirubin 0.8 mg/dL (0.15-1.2); Total Protein 5.8 g/dL (6.6-8.7)
[2019-12-26] MEDS: lactated ringers 1,000 ML 75 ML IV (09:51)
[2019-12-26] MEDS: atorvastatin 40 mg Tablet 20 MG PO (09:52)
[2019-12-26] MEDS: aspirin 81 mg EC Tablet PO (09:55)
[2019-12-26] MEDS: lisinopril 20 mg Tablet PO (10:06)
[2019-12-26] MEDS: amlodipine 10 mg Tablet PO (10:07)
[2019-12-26] MEDS: fluticasone nasal spray 16gm Btl 2 SPRAY NASAL (11:00)
[2019-12-26] MEDS: morphine 4 mg/mL SDV 1 mL 2 MG IVP (11:01)
--- NOTE | 2019-12-26 11:07 | P.PN_ITS ---
Subjective Subjective: Interval history: April reports she is doing well. No abdominal pain or vomiting currently. No cough or shortness of breath. Currently on room air. Medications: Reviewed: Yes Vitals/I&O/Wt Last Vital Signs Temp 99.7 F H 12/26/19 08:00 Pulse 69 12/26/19 09:57 Resp 20 H 12/26/19 11:01 BP 160/83 12/26/19 06:05 Pulse Ox 92 12/26/19 09:57 12/25/19 12/26/19 12/26/19 22:59 06:59 14:59 Intake Total 450 / 1450 640 / 2090 925 / 925 Balance 450 / 1450 640 / 2090 925 / 925 Weight last 48 hrs Weight 76.566 kg Weight 72.575 kg Physical Exam Narrative: EXAM NARRATIVE: General exam is no apparent distress Cardiovascular regular rate and rhythm without murmur Lungs clear Abdomen is soft nontender with positive bowel sounds Extremities no cyanosis clubbing or edema Data : 12/26/19 04:15 12/26/19 04:15 A&P Assessment and plan (1) Acute pancreatitis: This appears to be related to bowel inflammation secondary to NSAID induced gastritis/enteritis. Lipase markedly improved Patient symptoms markedly improved Continue proton pump inhibitor Avoid all anti-inflammatories Start clear liquid diet Potentially home tomorrow if continues to improve Status: Acute (2) Acute hepatitis: This could be a result of viral infection including COVID-19. This is markedly improved Acute hepatitis panel is negative Status: Acute (3) COVID-19 virus detected: Currently on room air. Not receiving dexamethasone or antiviral currently. Denies cough or shortness of breath. 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
[2019-12-26] MEDS: D5-NS 0.45% + KCL 20 mEq 20 MEQ/1,000 ML BAG 100 MEQ IV ×2 (13:59→20:38)
--- NOTE | 2019-12-26 18:21 | PC.NURSE ---
order for cmp noted at 10am. betty it and called for crop picker of specimen but it fell off the ledge and was not picked up until later. lab thought it was a cbc that was to be ordered , they called to martha to let us know but the patient had transfered at around 1600.
[2019-12-26] MEDS: enoxaparin 40 mg/0.4 mL Syringe SUBCUT (20:38)
[2019-12-26] MEDS: ondansetron 2 mg/ML SDV 2 mL 4 MG IVP (22:52)
[2019-12-27] VITALS (7 sets, daily range): BP systolic 111–148; BP diastolic 63–80; PULSE 58–72; RESP 14–18; TEMP 36.8–37.3; O2SAT 90–96
[2019-12-27] MEDS: acetaminophen 500 mg Tablet PO (03:20)
[2019-12-27 05:06] LABS: INR 1.03 (0.8-1.2)
[2019-12-27 06:31] LABS: Basophils % 0.3 %; Eosinophils % 0.3 %; Hematocrit 36.5 % (37.0-47.0); Hemoglobin 10.9 g/dL (11.5-15.3); Lymphocytes # 1.8 10^3/uL (0.8-4.8); Lymphocytes % 49.3 %; Mean Corpuscular HGB Conc 29.9 g/dL (30.0-36.0); Mean Corpuscular Hemoglobin 31.3 pg (28.0-34.0); Mean Corpuscular Volume 104.9 fL (81-99); Mean Platelet Volume 12.1 fL (7.4-10.4); Monocytes # 0.3 10^3/uL (0.2-0.9); Monocytes % 8.7 %; Neutrophils # 1.52 10^3/uL (1.8-7.7); Neutrophils % 41.1 %; Nucleated Red Blood Cells % 0 %; Platelet Count 119 10^3/cmm (130-400); Red Blood Count 3.48 10^6/uL (4.1-5.3); Red Cell Distribution Width 13.1 % (12.1-15.1); White Blood Count 3.7 10^3/uL (4.0-10.0)
[2019-12-27 07:49] LABS: Alanine Aminotransferase 342 U/L (0-33); Albumin Level 3.4 g/dL (3.5-5.2); Alkaline Phosphatase 143 IU/L (35-105); Anion Gap 8.8 (5-19); Aspartate Amino Transferase 136 U/L (0-32); Blood Urea Nitrogen 5 mg/dL (8-23); Calcium 8.2 mg/dL (8.5-10.5); Carbon Dioxide 28 mmol/L (22-29); Chloride 102 mmol/L (98-107); Globulin 2.2 g/dL (1.3-4.6); Glucose 114 mg/dL (65-115); Osmolality Calculated 278 mOsm/kg (285-295); Potassium 3.8 mmol/L (3.5-5.1); Sodium 135 mmol/L (136-145); Total Bilirubin 0.3 mg/dL (0.15-1.2); Total Protein 5.6 g/dL (6.6-8.7)
[2019-12-27] MEDS: atorvastatin 40 mg Tablet 20 MG PO (08:35)
[2019-12-27] MEDS: aspirin 81 mg EC Tablet PO (08:36)
[2019-12-27] MEDS: lisinopril 20 mg Tablet PO (08:36)
[2019-12-27] MEDS: amlodipine 10 mg Tablet PO (08:36)
[2019-12-27] MEDS: fluticasone nasal spray 16gm Btl 2 SPRAY NASAL ×2 (08:37→17:03)
[2019-12-27] MEDS: pantoprazole 40 mg SDV IVP ×2 (08:38→21:32)
--- NOTE | 2019-12-27 08:56 | PC.RESP ---
patient was on a 2LPM NC. Sats were 96%. Therapist placed patient on RA, sats are 94% and holding at this time.
--- NOTE | 2019-12-27 10:40 | PM.PN ---
Subjective Subjective: Interval history: April required initiation of oxygen last night. She has been coughing some. She has had no nausea or vomiting overnight. She feels like she could eat more. Medications: Reviewed: Yes Vitals/I&O/Wt Last Vital Signs Temp 98.4 F 12/27/19 08:00 Pulse 72 12/27/19 08:55 Resp 18 12/27/19 08:00 BP 147/80 12/27/19 08:00 Pulse Ox 96 12/27/19 08:55 12/26/19 12/27/19 12/27/19 22:59 06:59 14:59 Intake Total 785 / 2510 120 / 2630 120 / 120 Output Total 600 / 800 Balance 785 / 2310 -480 / 1830 120 / 120 Weight last 48 hrs Weight 76.067 kg Weight 76.566 kg Weight 72.575 kg Physical Exam Narrative: EXAM NARRATIVE: General exam is no apparent distress. Temperature elevation of 100.7 was noted yesterday. Cardiovascular regular rate and rhythm without murmur Lungs slightly coarse Abdomen is soft nontender with positive bowel sounds Extremities no cyanosis clubbing or edema Data : 12/27/19 03:36 12/27/19 03:30 A&P Assessment and plan (1) Acute pancreatitis: This appears to be related to bowel inflammation secondary to NSAID induced gastritis/enteritis. Lipase markedly improved Patient symptoms markedly improved Continue proton pump inhibitor Avoid all anti-inflammatories Change to low-fat soft diet Discharge will be held secondary to oxygen requirement. Status: Acute (2) Acute hepatitis: This could be a result of viral infection including COVID-19. Liver function tests continue to improve Acute hepatitis panel is negative Status: Acute (3) COVID-19 virus detected: Now requiring oxygen. In the face of Covid with oxygen requirement will placed on dexamethasone and remdesivir. She is having more respiratory symptoms. Status: Acute (4) Coronary artery disease: Status: Acute (5) Essential hypertension: Fair control Status: Acute Additional A&P Information Full code Lovenox for DVT prophylaxis Attestations Medical Necessity Statement*: Needs continued hospital stay for IV antiviral and steroids secondary to COVID-19 pneumonia with hypoxia. 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
[2019-12-27] MEDS: enoxaparin 40 mg/0.4 mL Syringe SUBCUT (21:33)
[2019-12-28] VITALS (8 sets, daily range): BP systolic 112–166; BP diastolic 62–88; PULSE 61–85; RESP 14–20; TEMP 36.7–37.2; O2SAT 91–95
[2019-12-28 04:41] LABS: D Dimer 2.58 ug/mIFEU (0-0.59)
[2019-12-28 04:44] LABS: Alanine Aminotransferase 247 U/L (0-33); Albumin Level 3.6 g/dL (3.5-5.2); Alkaline Phosphatase 128 IU/L (35-105); Anion Gap 13.2 (5-19); Aspartate Amino Transferase 56 U/L (0-32); Blood Urea Nitrogen 9 mg/dL (8-23); C Reactive Protein 3.4 mg/L (0.0-4.9); Calcium 8.3 mg/dL (8.5-10.5); Carbon Dioxide 25 mmol/L (22-29); Chloride 106 mmol/L (98-107); Globulin 2.2 g/dL (1.3-4.6); Glucose 88 mg/dL (65-115); Osmolality Calculated 290 mOsm/kg (285-295); Potassium 3.2 mmol/L (3.5-5.1); Sodium 141 mmol/L (136-145); Total Bilirubin 0.2 mg/dL (0.15-1.2); Total Protein 5.8 g/dL (6.6-8.7)
[2019-12-28 04:48] LABS: Procalcitonin 0.09 ng/mL (0-0.5)
[2019-12-28 04:59] LABS: Ferritin 229 ng/mL (15-150)
[2019-12-28 05:44] LABS: Hemoglobin 11.4 g/dL (11.5-15.3); Lymphocytes # 1.5 10^3/uL (0.8-4.8); Lymphocytes % 45.4 %; Mean Corpuscular HGB Conc 30.8 g/dL (30.0-36.0); Mean Corpuscular Hemoglobin 31.7 pg (28.0-34.0); Mean Corpuscular Volume 102.8 fL (81-99); Mean Platelet Volume 12.4 fL (7.4-10.4); Monocytes # 0.3 10^3/uL (0.2-0.9); Monocytes % 9.1 %; Neutrophils # 1.53 10^3/uL (1.8-7.7); Neutrophils % 45.2 %; Nucleated Red Blood Cells % 0 %; Platelet Count 128 10^3/cmm (130-400); Red Cell Distribution Width 12.5 % (12.1-15.1); White Blood Count 3.4 10^3/uL (4.0-10.0)
--- NOTE | 2019-12-28 07:00 | XRR_ITS ---
PROCEDURE INFORMATION: Exam: XR Chest, 1 View Exam date and time: 12/28/2019 8:03 AM Age: 79 years old Clinical indication: Dyspnea; Hypoxia TECHNIQUE: Imaging protocol: XR of the chest Views: 1 view. COMPARISON: CR XR chest 1V portable [id number] 12/25/2019 12:36 PM FINDINGS: Lungs: Architectural changes in the upper lung zones compatible with emphysema. No pneumonia or pulmonary edema. Pleural space: No pleural effusion or pneumothorax. Heart/Mediastinum: The cardiac silhouette is not enlarged. Vasculature: The descending thoracic aorta is tortuous. The aortic arch is atherosclerotic. Bones/joints: At least 1 old right rib fracture. Left glenohumeral joint degeneration. Left rotator cuff calcific tendinitis. Soft tissues: There is a left epicardial fat pad. XR/XR chest 1V portable [id number] IMPRESSION: No acute abnormality.
--- NOTE | 2019-12-28 07:02 | PC.NURSE ---
Pt rested well through the night. Did not require any oxygen. BP slowly elevated. Called Dr. Hawkins who ordered to continue her home medication of Metoprolol. Patient was cleaned up with clean gown and linen change.
[2019-12-28] MEDS: amlodipine 10 mg Tablet PO (09:25)
[2019-12-28] MEDS: potassium chloride ER 10 mEq Tablet 40 MEQ PO (09:25)
[2019-12-28] MEDS: dexamethasone 4 mg/mL INJ 6 MG IVP (09:25)
[2019-12-28] MEDS: aspirin 81 mg EC Tablet PO (09:25)
[2019-12-28] MEDS: lisinopril 20 mg Tablet PO (09:25)
[2019-12-28] MEDS: atorvastatin 40 mg Tablet 20 MG PO (09:25)
[2019-12-28] MEDS: metoprolol tartrate 25 mg Tablet PO ×2 (09:26→16:47)
[2019-12-28] MEDS: pantoprazole 40 mg SDV IVP ×2 (09:26→22:10)
[2019-12-28] MEDS: fluticasone nasal spray 16gm Btl 2 SPRAY NASAL ×2 (09:47→16:55)
--- NOTE | 2019-12-28 09:48 | P.PN_ITS ---
Subjective Subjective: Interval history: April reports her stomach feels even better this morning. She has been having bowel movements. Hungry. Not short of breath today. Just tapered off oxygen. Medications: Reviewed: Yes Vitals/I&O/Wt Last Vital Signs Temp 98.8 F 12/28/19 08:00 Pulse 64 12/28/19 08:00 Resp 18 12/28/19 08:00 BP 133/73 12/28/19 08:00 Pulse Ox 94 12/28/19 08:00 12/27/19 12/28/19 12/28/19 22:59 06:59 14:59 Intake Total 240 / 360 240 / 600 120 / 120 Output Total 400 / 725 400 / 1125 Balance -160 / -365 -160 / -525 120 / 120 Weight last 48 hrs Weight 72.83 kg Weight 76.067 kg Physical Exam Narrative: EXAM NARRATIVE: General exam no apparent distress Cardiovascular regular in rhythm without murmur Lungs clear Abdomen is soft, nontender Extremities no cyanosis clubbing or edema Data : 12/28/19 03:40 12/28/19 03:40 A&P Assessment and plan (1) Acute pancreatitis: This appears to be related to bowel inflammation secondary to NSAID induced gastritis/enteritis. Lipase markedly improved second day of hospitalization Patient symptoms markedly improved Continue proton pump inhibitor Avoid all anti-inflammatories Continue low-fat diet Clinically resolved. Status: Acute (2) Acute hepatitis: This could be a result of viral infection including COVID-19. Liver function tests continue to improve Acute hepatitis panel is negative No need for laboratory tomorrow if continues to clinically improve Status: Acute (3) COVID-19 virus detected: Not consistent with pneumonia. Oxygen has just tapered off today. Continue steroid and antiviral. If stays off oxygen, and remained stable consider discharge tomorrow. Status: Acute (4) Coronary artery disease: Status: Acute (5) Essential hypertension: Fair control Status: Acute Additional A&P Information Hypokalemia, supplement Full code Lovenox for DVT prophylaxis Attestations Medical Necessity Statement*: Needs continued hospital stay for close monitoring secondary to pancreatitis, COVID-19 pneumonia receiving antiviral and dexamethasone Coding Level of Care Code Acute Keyliner for [facility] Fwd Diagnoses Acute pancreatitis K85.90 Acute hepatitis B17.9 COVID-19 virus detected U07.1 Coronary artery disease I25.10 Essential hypertension I10
--- NOTE | 2019-12-28 11:28 | PC.SOCIAL ---
Pg 2 IMM Explained to pt Pg 2 IMM, via phone. No questions voiced. Provided nurse a copy to give to pt. Signed, dated, & timed a copy & placed in chart.
--- NOTE | 2019-12-28 17:40 | PC.NURSE ---
SHIFT SUMMARY PATIENT HAS DONE WELL TODAY. ON ROOM AIR. PATIENT HAD GOOD URINE OUTPUT. TOLERATING DIET. AMBULATING AROUND ROOM WELL.
[2019-12-28] MEDS: enoxaparin 40 mg/0.4 mL Syringe SUBCUT (21:07)
[2019-12-29 04:00] VITALS: BP 136/79; PULSE 62; RESP 18; TEMP 36.6; O2SAT 93
[2019-12-29 08:00] VITALS: BP 134/68; PULSE 72; RESP 18; TEMP 36.4; O2SAT 96
--- NOTE | 2019-12-29 08:42 | P.DS_ITS ---
Discharge Providers Date of Admission: 12/25/19 16:49 Date of Discharge: December 29, 2019 Attending Provider at Admission: Gaston Bolivar MD Attending Provider at Discharge: Brock Meneses MD Primary Care Provider: Parvez Kay DO Diagnoses at Discharge Discharge Diagnosis (1) Acute pancreatitis: Status: Acute Problem details: Resolved (2) Acute hepatitis: Status: Acute Problem details: Resolving (3) COVID-19 virus detected: Status: Acute Problem details: Will finish up 6 days of dexamethasone (4) Coronary artery disease: Status: Acute (5) Essential hypertension: Status: Acute Reason for Visit Reason for Visit: n/v Hospital Course Hospital Course: April is a 79-year-old white female who presented to the hospital originally with nausea and vomiting. She had an elevated lipase, and elevated LFTs. She was Covid positive. She was not requiring oxygen at the time of admission. She was resuscitated with IV fluids, nausea treated, and she was made NPO. CT demonstrated some stranding, around pancreas that may indicate pancreatitis. Mild intrahepatic and extrahepatic bile duct dilation was noted but no stone. Gallbladder ultrasound demonstrated only mild common bile duct dilation at 1 cm. Patient had had a previous cholecystectomy. Her abdominal pain rapidly improved while in the hospital. LFTs decreased significantly. Hepatitis panel was negative. She did require some oxygen, and secondary to this she was placed on treatment with remdesivir and dexamethasone. By the end of her hospital course she was back on room air. She will finish up 6 days of dexamethasone by mouth. She will take Eliquis 2-1/2 mg by mouth twice daily for the next 10 days. Reasoning behind this was discussed in detail with the patient and she elected to proceed. He was instructed not to resume her meloxicam. Omeprazole was increased to 40 mg twice daily. Home oxygen evaluation will be performed prior to discharge. Physical Exam Narrative: EXAM NARRATIVE: General exam no apparent distress Cardiovascular regular in rhythm without murmur Lungs clear Abdomen is benign. No tenderness is present. No obvious organomegaly Extremities no cyanosis clubbing or edema Discharge Data Data Completed and Pending: Completed Studies During Hospitalization Category Date Time Status CT abdomen pelvis w con* [id number] Stat Cat Scan 12/25/19 13:03 Completed XR chest 1V evelyn ble [id number] Routine Exams 12/28/19 07:00 Completed XR chest 1V evelyn ble [id number] Stat Exams 12/25/19 12:17 Completed US gall bladder 7 [id number] Stat Ultrasound 12/25/19 14:54 Completed Pending at discharge Category Date Time Status Sputum Culture an d Gram Stain Stat Lab 12/25/19 12:17 Uncollected Vitals: Last Vital Signs Temp 97.8 F 12/29/19 04:00 Pulse 62 12/29/19 04:00 Resp 18 12/29/19 04:00 BP 136/79 12/29/19 04:00 Pulse Ox 93 12/29/19 04:00 Discharge Plan Discharge Patient Disposition: Home Condition: Stable Prescriptions: New dexamethasone 6 mg tablet 6 mg PO Q24H Qty: 6 RF: 0 Eliquis 2.5 mg tablet 2.5 mg PO BID Qty: 20 RF: 0 Continued nitroglycerin [Nitrostat] 0.4 mg tablet, sublingual 0.4 mg SUBLINGUAL Q5M PRN (Reason: chest pain) RF: 0 lisinopril 20 mg tablet 20 mg PO BID RF: 0 aspirin [Adult Aspirin Regimen] 81 mg tablet,delayed release (DR/EC) 81 mg PO DAILY RF: 0 atorvastatin 20 mg tablet 20 mg PO DAILY RF: 0 PreserVision Lutein 226 mg-200 unit -5 mg-0.8 mg capsule 1 cap PO PRN PRN (Reason: low vitamin count) RF: 0 amlodipine 10 mg tablet 10 mg PO DAILY Qty: 30 RF: 0 metoprolol tartrate 25 mg Tablet 25 mg PO BID RF: 0 Changed omeprazole 40 mg capsule,delayed release(DR/EC) 40 mg PO BID Qty: 60 RF: 0 Discontinued meloxicam 15 mg tablet 7.5 mg PO DAILY RF: 0 Hold Instructions: Resume on 11/12/19. Discharge Orders: Discharge Order (Routine); Ordered 12/29/19 Ordered By: Brock Meneses Referrals: Parvez Kay DO [Primary Care Provider] - 1-3 days (Virtual appointment needs scheduled at discharge.) Discharge Diet: Cardiac, Low Cholesterol and GI Soft Discharge Activity: Increase activity as tolerated Activity Restrictions/Additional Instructions: Low-fat diet Home oxygen evaluation prior to discharge Note that you will be taking Eliquis for a short while secondary to recent diagnosis of Covid. If for any bleeding, black or tarry stools notify your primary come to the emergency department Follow-up with your primary care provider within 2 days by telehealth Follow a low-fat diet. 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
[2019-12-29 09:04] VITALS: BP 136/79; PULSE 62; RESP 18; TEMP 36.6; O2SAT 93
[2019-12-29] MEDS: aspirin 81 mg EC Tablet PO (09:10)
[2019-12-29] MEDS: atorvastatin 40 mg Tablet 20 MG PO (09:10)
[2019-12-29] MEDS: metoprolol tartrate 25 mg Tablet PO (09:10)
[2019-12-29] MEDS: lisinopril 20 mg Tablet PO (09:10)
[2019-12-29] MEDS: amlodipine 10 mg Tablet PO (09:11)
[2019-12-29] MEDS: fluticasone nasal spray 16gm Btl 2 SPRAY NASAL (09:11)
[2019-12-29] MEDS: pantoprazole 40 mg SDV IVP (09:21)
[2019-12-29] MEDS: dexamethasone 4 mg/mL INJ 6 MG IVP (09:22)
[2019-12-29 10:36] VITALS: O2SAT 94; O2SAT 95
--- NOTE | 2019-12-31 14:22 | PC.SOCIAL ---
spoke with patient post discharge. She indicates she feels great and I have more energy . We discussed she is on steroids right now which may be helping with that and once she is off she may feal a little weaker. She verbalized understanding. She is taking the Eliquis as well. We discussed what to monitor such as bleeding in urine, stool or through nose. If this occurs to follow up with PCP if mild and return to ED if severe. She verbalized understanding. Health Dept sent her a letter and she can be off quarantine as of 01/03/2020. We discussed to continue to wear a mask in public after this if possible, practice social distancing and good hand hygiene. She verbalized understanding. Patient indicates she received flu vaccine while in the hospital. She does not have an appt with PCP yet. Offered to make this appointment and she was agreeable. Talked to Beny at Dr Kay office and they are not really doing virtual visits and since she will be off quarantine after 01/02 and appt has been scheduled for 01/05 at 11:40am. Advised patient of appointment and she will attend. She is not curently interested in plasma donation. No other questions or concerns voiced.
== END 2019-12-29 11:40 | disposition home or self-care (01) | DRG 177 ==
LOC: ER 16:44 → MEDSURG 17:26 → ICU 18:07 → MEDSURG 12-26 16:57
PROVIDERS: Family Medicine; Admitting Provider Internal Medicine; PCP Electrodiagnostic Medicine; Visit Provider Internal Medicine
DX: U07.1 COVID-19 (principal); K85.90 Acute pancreatitis without necrosis or infection, unspecified; B17.9 Acute viral hepatitis, unspecified; I25.10 Atherosclerotic heart disease of native coronary artery without angina pectoris; Z98.61 Coronary angioplasty status; E78.5 Hyperlipidemia, unspecified; I10 Essential (primary) hypertension; M81.0 Age-related osteoporosis without current pathological fracture; M35.3 Polymyalgia rheumatica; G47.30 Sleep apnea, unspecified; Z87.891 Personal history of nicotine dependence; K29.70 Gastritis, unspecified, without bleeding; T39.315A Adverse effect of propionic acid derivatives, initial encounter; Z79.82 Long term (current) use of aspirin
CPT/HCPCS: 12345; 36415; 36600; 71045; 74177; 76705; 80053; 80074; 81003; 82009; 82550; 82728; 82803; 83605; 83615; 83690; 83735; 84145; 84478; 85025; 85378; 85384; 85610; 85730; 86140; 87426; 90471; 90686; 93005; 94760; 96372; 96375; 99284; C9113; J1100; J1650; J2270; J2405; J7030; Q9967

== ENCOUNTER 2020-04-24 11:59 | Emergency (ER) | payer MEDICARE, OTHER, SELFPAY ==
[2020-04-24 12:03] VITALS: BP 157/89; PULSE 85; RESP 18; TEMP 36.5; O2SAT 95; BMI 24.7
--- NOTE | 2020-04-24 12:17 | ECG_ITS ---
[facility] Test Date: 2020-04-24 Pat Name: April Schwartz Department: Room: Gender: Female Attic Blower: : 1940 Requested By: Yann Liao Order Number: [id number] Cale MD: Rey Iqbal M.D. Measurements Intervals [place] Rate: 60 P: 89 [place]: 193 QRS: 44 QRSD: 82 T: 66 QT: 411 QTc: 414 Interpretive Statements SINUS RHYTHM Compared to ECG 12/26/2019 05:28:04 No significant changes Electronically Signed On 04-25-2020 19:17:30 LAB DIRECTOR by Rey Iqbal M.D. [id number] f
--- NOTE | 2020-04-24 12:24 | XR_ITS ---
WS: [id number] Portable AP upright chest, 04/24/2020 Clinical Data: htn, weakness Comparison: Portable chest, 12/28/2019. Findings: No nodules, masses or effusions are seen. The heart is normal. The pulmonary vascularity is not increased. No pneumonia or pneumothorax is seen. The aortic arch and descending aorta show calci fication and tortuosity. There is a healed right posterior lateral fifth rib fracture. Monitor leads are on the chest wall. There are calcifications over both greater tuberosities which may indicate ally cific bursitis and/or tendinitis. XR/XR chest 1V portable [id number] Impression: Atherosclerosis.
--- NOTE | 2020-04-24 12:24 | W.ED.GENADLT ---
HPI - General Adult General: Chief complaint: General Medical Stated complaint: HTN Time Seen by Provider: 04/24/20 12:17 History of Present Illness: HPI narrative: Patient complains of hypertension for the last few weeks. Recently had her lisinopril doubled from 20 mg a day to 20 twice daily by manager quantitative patient says her blood pressure not come down she said her diastolics been all the way up to 120 range. Patient also complains about nausea for the last few weeks since blood pressures been high. Also was placed on amlodipine a while back and that is really not helped her blood pressure. Patient says she just feels weak and nauseous like it her blood pressure controlled denies chest pain denies shortness of breath denies any abdominal pain but does have a history of pancreatitis. Onset (ago): week(s) Relieving factors: none Associated symptoms: Reports nausea; Deny chest pain, dyspnea, headache(s), rash or vomiting Review of Systems Const: Denies: fever(s), chills or body aches Eyes: Denies: change in vision or blurry vision ENMT: Denies: throat pain or nasal congestion Card: Reports: irregular heart rhythm and other (Hypertension not controlled well); Denies: chest pain or dyspnea on exertion Resp: Denies: dyspnea, productive cough or non-productive cough GI: Reports: nausea; Denies: abdominal pain or vomiting Musc: Denies: extremity pain Skin/Breast: Denies: rash Neuro: Denies: headache(s) Psych: Denies: anxiety or depression Eddie/Lymph: Denies: easy bruising PFSH ED PFSH: Medical History Carotid stenosis Coronary artery disease Dyslipidemia Essential hypertension Flexor tenosynovitis of finger Osteoarthritis of carpometacarpal joint of left thumb Osteoporosis PMR (polymyalgia rheumatica) Sleep apnea Trigger finger, left index finger Surgical History H/O arthroscopic knee surgery H/O cataract extraction H/O hysterectomy for benign disease History of cholecystectomy Hx of coronary angioplasty Family History Other CAD (coronary artery disease) Cancer Diabetes Hypertension Rheumatoid arthritis Denies family history of Chronic kidney disease (CKD) Lung disease Social History Smoking and tobacco status: former smoker Quit status (tobacco): has quit using tobacco Year quit tobacco: 2011 -1.5 PPD x 50 Years Second hand smoke exposure: Yes Smoking risk assessment/counseling performed?: Yes Alcohol intake: never Desire information about alcohol rehabilitation?: No Lives independently: Yes Household members: none Housing: House Marital status: / Current occupational status: employed Current occupational exposures/hazards: No History of recent travel: No Current gender identity: Female Female Reproductive History: Date of last menstrual period: 12/28/1966 Physical Exam Const: COMMON NORMALS: no acute distress, average body habitus and patient oriented x3 HENMT: COMMON NORMALS: normocephalic HEAD & SCALP: normal to inspection and normocephalic FACE & SINUS: normal facial exam Eye: COMMON NORMALS: conjunctivae normal GENERAL EYE: appearance normal, both eyes and all related structures CONJUNCTIVA: Yes conjunctivae normal Neck/C-Spine: COMMON NORMALS: no JVD Chest: COMMONS NORMALS: normal inspection of the chest Resp: COMMON NORMALS: normal respiratory effort and clear to auscultation bilaterally AUSCULTATION: clear to auscultation bilaterally Cardio: COMMON NORMALS: no JVD and regular rate RATE: regular rate GI: COMMON NORMALS: Normal to inspection, nondistended, normoactive bowel sounds present Extremity: COMMON NORMALS: normal to inspection and full ROM Neuro: COMMON NORMALS: patient oriented x3 Course Vital Signs: Vital signs: Vital Signs Temperature 97.7 F 04/24/20 12:03 Pulse Rate 85 04/24/20 12:03 Respiratory Rate 18 04/24/20 12:03 Blood Pressure 157/89 04/24/20 12:03 Pulse Oximetry 95 04/24/20 12:03 [facility] - General Adult Lab Data: Labs: Lab Results 04/24/20 04/24/20 Range/Units 12:30 12:30 WBC 6.0 (4.0-10.0) 10^3/ uL RBC 4.44 (4.1-5.3) 10^6/u L Hgb 13.9 (11.5-15.3) g/dL Hct 44.7 (37.0-47.0) % MCV 100.7 H (81-99) fL MCH 31.3 (28.0-34.0) pg MCHC 31.1 (30.0-36.0) g/dL RDW 13.2 (12.1-15.1) % Plt Count 193 (130-400) 10^3/c mm MPV 10.7 H (7.4-10.4) fL Neut % (Auto) 46.7 % Lymph % (Auto) 40.5 % [place] % (Auto) 9.9 % Eos % (Auto) 2.4 % Baso % (Auto) 0.3 % Neut # (Auto) 2.78 (1.8-7.7) 10^3/u L Lymph # (Auto) 2.4 (0.8-4.8) 10^3/u L [place] # (Auto) 0.6 (0.2-0.9) 10^3/u L Eos # (Auto) 0.1 (0.0-0.8) 10^3/u L Baso # (Auto) 0.0 (0.0-0.1) 10^3/u L Nucleated RBC % (a uto) 0 % Nucleated RBCs # 0.0 /100WBC Sodium 141 (136-145) mmol/L Potassium 4.0 (3.5-5.1) mmol/L Chloride 104 (98-107) mmol/L Carbon Dioxide 27 (22-29) mmol/L Anion Gap 14.0 (5-19) BUN 17 (8-23) mg/dL Creatinine 0.6 (0.5-0.9) mg/dL GFR Calculation Not Reportable Glucose 98 (65-115) mg/dL Calculated Osmolal ity 294 (285-295) mOsm/k g Calcium 9.4 (8.5-10.5) mg/dL Total Bilirubin 0.4 (0.15-1.2) mg/dL AST 15 (0-32) U/L ALT 14 (0-33) U/L Alkaline Phosphata se 73 (35-105) IU/L Total Protein 6.9 (6.6-8.7) g/dL Albumin 4.2 (3.5-5.2) g/dL Globulin 2.7 (1.3-4.6) g/dL Lipase 24 (13-60) U/L EKG Data^: EKG 1: EKG interpretation date: 04/24/20 EKG interpretation time: 12:43 Computer generated interpretation: Ventricular rate 60 bpm DE interval is 183 ms QRS durations 82 ms QT is 411 ms sinus rhythm normal EKG Discharge Plan Discharge Prescriptions: No Action nitroglycerin [Nitrostat] 0.4 mg tablet, sublingual 0.4 mg SUBLINGUAL Q5M PRN (Reason: chest pain) RF: 0 aspirin [Adult Aspirin Regimen] 81 mg tablet,delayed release (DR/EC) 81 mg PO DAILY RF: 0 atorvastatin 20 mg tablet 20 mg PO DAILY RF: 0 PreserVision Lutein 226 mg-200 unit -5 mg-0.8 mg capsule 1 cap PO PRN PRN (Reason: low vitamin count) RF: 0 amlodipine 10 mg tablet 10 mg PO DAILY Qty: 30 RF: 1 lisinopril 20 mg tablet 40 mg PO BID RF: 0 metoprolol tartrate 25 mg Tablet 25 mg PO BID RF: 0 dexamethasone 6 mg tablet 6 mg PO Q24H Qty: 6 RF: 0 Eliquis 2.5 mg tablet 2.5 mg PO BID Qty: 20 RF: 0 omeprazole 40 mg capsule,delayed release(DR/EC) 40 mg PO BID Qty: 60 RF: 0 Coding Level of Care Code ED Insole Cementer for Chg Fwd Exam Comprehensive
[2020-04-24 12:46] LABS: Basophils % 0.3 %; Eosinophils # 0.1 10^3/uL (0.0-0.8); Eosinophils % 2.4 %; Hematocrit 44.7 % (37.0-47.0); Hemoglobin 13.9 g/dL (11.5-15.3); Lymphocytes # 2.4 10^3/uL (0.8-4.8); Lymphocytes % 40.5 %; Mean Corpuscular HGB Conc 31.1 g/dL (30.0-36.0); Mean Corpuscular Hemoglobin 31.3 pg (28.0-34.0); Mean Corpuscular Volume 100.7 fL (81-99); Mean Platelet Volume 10.7 fL (7.4-10.4); Monocytes # 0.6 10^3/uL (0.2-0.9); Monocytes % 9.9 %; Neutrophils # 2.78 10^3/uL (1.8-7.7); Neutrophils % 46.7 %; Nucleated Red Blood Cells % 0 %; Platelet Count 193 10^3/cmm (130-400); Red Blood Count 4.44 10^6/uL (4.1-5.3); Red Cell Distribution Width 13.2 % (12.1-15.1)
[2020-04-24 13:02] LABS: Alanine Aminotransferase 14 U/L (0-33); Albumin Level 4.2 g/dL (3.5-5.2); Alkaline Phosphatase 73 IU/L (35-105); Aspartate Amino Transferase 15 U/L (0-32); Blood Urea Nitrogen 17 mg/dL (8-23); Calcium 9.4 mg/dL (8.5-10.5); Carbon Dioxide 27 mmol/L (22-29); Chloride 104 mmol/L (98-107); Globulin 2.7 g/dL (1.3-4.6); Glucose 98 mg/dL (65-115); Lipase 24 U/L (13-60); Osmolality Calculated 294 mOsm/kg (285-295); Sodium 141 mmol/L (136-145); Total Bilirubin 0.4 mg/dL (0.15-1.2); Total Protein 6.9 g/dL (6.6-8.7)
[2020-04-24 13:53] VITALS: BP 144/85; PULSE 62; RESP 18; O2SAT 96
== END 2020-04-24 13:53 | disposition home or self-care (01) ==
PROVIDERS: Emergency Provider Nurse Practitioner Family; PCP Electrodiagnostic Medicine
DX: I10 Essential (primary) hypertension (principal); Z79.82 Long term (current) use of aspirin; Z79.01 Long term (current) use of anticoagulants; I25.10 Atherosclerotic heart disease of native coronary artery without angina pectoris; E78.5 Hyperlipidemia, unspecified; Z87.891 Personal history of nicotine dependence
CPT/HCPCS: 71045; 80053; 83690; 85025; 93005; 99283

== ENCOUNTER 2020-05-18 12:36 | Outpatient (CLI) | payer MEDICARE, OTHER, SELFPAY ==
--- NOTE | 2020-05-18 12:47 | XRR_ITS ---
PROCEDURE INFORMATION: Exam: XR Right Knee Exam date and time: 05/18/2020 1:07 PM Age: 80 years old Clinical indication: Pain; Knee; Right; Prior surgery; Surgery type: Meniscus x 2; Patient HX: Fell on concrete year ago; Additional info: Chronic R knee pain/derangement lateral meniscus of R knee TECHNIQUE: Imaging protocol: XR Right knee. Views: 3 views. COMPARISON: No relevant prior studies available. FINDINGS: Bones/joints: There is osteopenia.There is no evidence for acute fracture or malalignment. There is mild osteophyte formation along the medial and lateral femoral condyle. Soft tissues: Normal. XR/XR knee RT 3V* [id number] IMPRESSION: There are no acute concerning abnormalities.
== END 2020-05-18 12:37 | disposition home or self-care (01) ==
LOC: RAD 12:40
PROVIDERS: PCP Electrodiagnostic Medicine; Visit Provider Electrodiagnostic Medicine
DX: M23.241 Derangement of anterior horn of lateral meniscus due to old tear or injury, right knee (principal); M25.561 Pain in right knee; I10 Essential (primary) hypertension
CPT/HCPCS: 73562

== ENCOUNTER 2021-12-24 09:18 | Outpatient (CLI) | payer MEDICARE, OTHER, SELFPAY ==
--- NOTE | 2021-12-24 09:33 | MR_ITS ---
WS: [id number] MRI HEAD WITH CONTRAST WITH ATTENTION TO THE INTERNAL AUDITORY CANALS TECHNIQUE: Sagittal T1, T2 axial, T2 axial flair, axial susceptibility weighted imaging, axial diffus ion weighted images, and coronal T2 images were obtained. Pre and post T1 axial and post T1 coronal i mages. ADC and FSPGR images. Post gadolinium images with attention to the internal auditory canals. A xial fiesta imaging. CLINICAL INFORMATION: TINNITUS, SUBJECTIVE, RIGHT COMPARISON: MRI May 27, 2019 FINDINGS: No evidence of restricted diffusion to suggest acute ischemia. Ventricular system and basal cisterns are patent. Mild small vessel changes with moderate parenchymal volume loss unchanged since May 27, 2019. Mild central canal stenosis in the upper cervical spine at C4-C5. Normal posterior fossa. Normal vascular flow voids at the skull base. No extra-axial fluid collection s. Paranasal sinuses and mastoid air cells well aerated. Normal posterior nasopharynx. Normal parapha ryngeal fat. Proximal 7th and 8th cranial nerves appear normal. No evidence of enhancing IAC or CP an gle mass. Normal trigeminal nerve root entry zones. Normal optic chiasm and pituitary infundibulum. No abnormal intracranial enhancement. No hemosiderin on susceptibly weighted images. Normal dural venous sinuses. No significant changes since May 26 020 T2 hyperintense partially visualized polypoid lesion or retention cyst in the RIGHT pharynx near the tongue base/tonsil measuring 1.7 x 1.6 cm. This can be further evaluated with direct visualization an d contrast-enhanced CT neck or MRI neck with gadolinium. Neoplasm is not excluded. MR/MR iac's wo/w con* [id number] IMPRESSION: 1. No evidence of restricted diffusion to suggest acute ischemia. 2. Mild small vessel changes with moderate parenchymal volume loss unchanged. 3. Proximal 7th and 8th cranial nerves are normal in appearance. Normal trigem inal nerve root entry zones. 4. No evidence of enhancing IAC or CP angle mass. 5. Paranasal sinuses and mastoid air cells are well aerated. 6. Mild central canal stenosis in the upper cervical spine at C4-C5. 7. T2 hyperintense partially visualized polypoid lesion or retention cyst in t he RIGHT pharynx near the tongue base/tonsil measuring 1.7 x 1.6 cm. This can b e further evaluated with direct visualization and contrast-enhanced CT neck or MRI neck with gadolinium. Neoplasm is not excluded.
[2021-12-24] MEDS: gadobenate dimeglumine 20 mL vial IV (10:21)
== END 2021-12-24 09:19 | disposition home or self-care (01) ==
LOC: RAD 09:18
PROVIDERS: PCP Electrodiagnostic Medicine; Visit Provider Nurse Practitioner
DX: H93.11 Tinnitus, right ear (principal); M48.02 Spinal stenosis, cervical region
CPT/HCPCS: 70553

== ENCOUNTER 2022-04-26 20:18 | Observation (INO) | payer MEDICARE, OTHER, SELFPAY ==
[2022-04-26 20:19] VITALS: BP 127/76; PULSE 89; RESP 22; TEMP 37.2; O2SAT 94; BMI 25.0
--- NOTE | 2022-04-26 20:21 | XRR_ITS ---
PROCEDURE INFORMATION: Exam: XR Chest Exam date and time: 04/26/2022 8:47 PM Age: 82 years old Clinical indication: Pain; Chest pressure; Prior surgery; Surgery date: 6+ months; Surgery type: Cardiac stent; Additional info: Cp TECHNIQUE: Imaging protocol: Radiologic exam of the chest. Views: 1 view. COMPARISON: CR XR chest 1V portable [id number] 12/28/2019 7:52 AM FINDINGS: Lungs: Unremarkable. No consolidation. Pleural spaces: Left costophrenic angle is obscured and a pleural effusion cannot be excluded. Heart/Mediastinum: There is a left pericardial fat pad. Possible cardiomegaly. Vasculature: There is calcified plaque in the aortic knob similar to the prior study. Thoracic aorta is tortuous. Bones/joints: Unremarkable. XR/XR chest 1V portable [id number] IMPRESSION: Possible cardiomegaly.Heart size not optimally evaluated with a single AP view of the chest.
--- NOTE | 2022-04-26 20:24 | ECG_ITS ---
[facility] Test Date: 2022-04-26 Pat Name: April Schwartz Department: Room: Gender: Female Clinical Lab Scientist: : 1940 Requested By: Georgie Bhatt Order Number: [id number] Cale MD: Bang Shepherd M.D. Measurements Intervals [place] Rate: 66 P: 87 KS: 171 QRS: 58 QRSD: 87 T: 72 QT: 392 QTc: 411 Interpretive Statements SINUS RHYTHM Compared to ECG 04/24/2020 12:42:46 No significant changes Electronically Signed On 04-26-2022 22:45:49 CREDIT AND COLLECTIONS REPRESENTATIVE by Bang Shepherd M.D. [id number]
--- NOTE | 2022-04-26 20:40 | ED_ITS ---
HPI - Chest Pain General: Chief Complaint: Chest Pain Stated Complaint: CP Time Seen by Provider: 04/26/22 20:29 Source: patient and family Mode of arrival: ambulatory Limitations: no limitations History of Present Illness: See nursing assessment. Patient with complaints of substernal chest pain that radiates into her back between her scapulas. Patient also complains of right upper quadrant and epigastric abdominal pain. Patient with nausea vomiting started this evening. Patient reportedly seen in her primary care physician's clinic today and diagnosed with sinus infection and started on amoxicillin and Tylenol with codeine. Patient states she did not have any of these symptoms above until this evening. She states she no longer takes blood thinners. She does take aspirin 81 mg tablet daily. She does not take Eliquis. Past surgical history includes cardiac stent in 2006. Last cardiac catheterization 5 years ago. Denies any tearing sensation. Associated symptoms: Reports abdominal pain (Right upper quadrant and epigastric), nausea and vomiting; Deny dyspnea, fever(s), palpitations or syncope Review of Systems Const: Denies: fever(s) or chills Eyes: Denies: change in vision ENMT: Denies: throat pain Card: Reports: chest pain; Denies: palpitations, edema, lightheadedness or syncope Resp: Denies: dyspnea or wheezing GI: Reports: abdominal pain (Right upper quadrant and epigastric), nausea and vomiting; Denies: hematemesis or hematochezia : Denies: flank pain Musc: Denies: neck pain Skin/Breast: Denies: rash or pruritus Neuro: Denies: headache(s) or numbness in extremities Psych: Denies: anxiety Eddie/Lymph: Denies: enlarged lymph nodes PFSH ED PFSH: Medical History Carotid stenosis Coronary artery disease Dyslipidemia Essential hypertension Flexor tenosynovitis of finger Osteoarthritis of carpometacarpal joint of left thumb Osteoporosis PMR (polymyalgia rheumatica) Sleep apnea Trigger finger, left index finger Surgical History H/O arthroscopic knee surgery H/O cataract extraction H/O hysterectomy for benign disease History of cholecystectomy Hx of coronary angioplasty Family History Other CAD (coronary artery disease) Cancer Diabetes Hypertension Rheumatoid arthritis Denies family history of Chronic kidney disease (CKD) Lung disease Social History Smoking and tobacco status: former smoker Quit status (tobacco): has quit using tobacco Year quit tobacco: 2012 -1.5 PPD x 50 Years Second hand smoke exposure: Yes Smoking risk assessment/counseling performed?: Yes Alcohol intake: never Desire information about alcohol rehabilitation?: No Lives independently: Yes Household members: none Housing: House Marital status: / Current occupational status: employed Current occupational exposures/hazards: No History of recent travel: No Current gender identity: Female Female Reproductive History: Date of last menstrual period: 12/28/1966 Supplemental [facility] Information: Patient reports last coronary stent was approximately 2006. She states last heart catheterization was about 5 years ago and was normal. Patient still smokes cigarettes. She denies alcohol use. Physical Exam Const: COMMON NORMALS: patient oriented x3, no limitations and well nourished GENERAL APPEARANCE: cooperative OTHER: Patient with active nausea and occasional dry heaves. HENMT: COMMON NORMALS: normocephalic and atraumatic HEAD & SCALP: normocephalic and atraumatic FACE & SINUS: normal facial exam Eye: COMMON NORMALS: EOMs intact bilaterally Neck/C-Spine: COMMON NORMALS: full ROM, no lymphadenopathy, supple and no meningeal signs GENERAL: Yes normal visual inspection Lymph: LYMPHATIC: no lymphadenopathy noted Chest: COMMONS NORMALS: normal inspection of the chest and normal palpation of entire chest wall CHEST: No Ecchymosis present and No rash OTHER: Nontender. Resp: COMMON NORMALS: normal respiratory effort, No retractions and clear to auscultation bilaterally EFFORT & INSPECTION: No respiratory distress A USCULTATION: clear to auscultation bilaterally Cardio: COMMON NORMALS: regular rate, regular rhythm and Peripheral pulses 2+ throughout JUGULAR VENOUS DISTENTION: no JVD RATE: regular rate RHYTHM: regular rhythm PERIPHERAL PULSES: Peripheral pulses 2+ throughout OTHER: Bilateral radial, femoral, dorsalis pedis and posterior tibial pulses 2 out of 4 GI: COMMON NORMALS: Normal to inspection, nondistended, normoactive bowel sounds present OTHER: Mild right upper quadrant abdominal pain. No bruits heard. No pulsatile masses. No hepatosplenomegaly. : COMMON NORMALS: Yes no CVA tenderness BLADDER/KIDNEY EXAM: Yes no CVA tenderness Back/Pelvis: COMMON NORMALS: no CVA tenderness OTHER: No rash. Spine is nontender. No soft tissue swelling. Extremity: COMMON NORMALS: normal to inspection, full ROM and capillary refill normal Neuro: COMMON NORMALS: patient oriented x3, CN's II-XII intact bilaterally, no focal motor deficits and no sensory deficits noted MENINGEAL SIGNS: Yes no meningeal signs Psych: COMMON NORMALS: mental status grossly normal and Normal thought process present THOUGHT PROCESS: Normal thought process present Skin: COMMON NORMALS: no rashes or lesions noted and no wounds GENERAL SKIN EXAM: no rashes or lesions noted Course Vital Signs: Vital signs: Vital Signs Temperature 99.0 F 04/26/22 20:19 Pulse Rate 74 04/26/22 21:58 Respiratory Rate 20 H 04/26/22 21:58 Blood Pressure 136/63 04/26/22 22:30 Pulse Oximetry 93 04/26/22 22:30 Oxygen Delivery Me thod 04/26/22 20:19 MDM - Chest Pain Medical Decision Making Chest pain with radiation to the back. Consider cardiac origin versus biliary colic versus TAA. Laboratory results consistent with acute pancreatitis. Patient reports history of cholecystectomy. Patient has mild transaminitis. Will obtain CT scan. 2300: Discussed case with Dr. Davies hospitalist. Observed to medical bed. Lab Data 04/26/22 20:50 04/26/22 20:50 Radiology Impressions Chest X-Ray 04/26/22 20:21 IMPRESSION: Possible cardiomegaly.Heart size not optimally evaluated with a single AP view of the chest. Abdomen/Pelvis CT 04/26/22 21:50 IMPRESSION: 1. No acute findings within the abdomen or pelvis. 2. No evidence of acute pancreatitis. 3. Prior cholecystectomy with stable dilatation of the biliary system. 4. Colonic diverticulosis. No evidence of acute diverticulitis. 5. Additional chronic findings as above. Laboratory Results WBC 7.6 10^3/uL (4.0-10.0) 04/26/22 20:50 RBC 4.29 10^6/uL (4.1-5.3) 04/26/22 20:50 Hgb 13.2 g/dL (11.5-15.3) 04/26/22 20:50 Hct 42.2 % (37.0-47.0) 04/26/22 20:50 MCV 98.4 fl (81-99) 04/26/22 20:50 MCH 30.8 pg (28.0-34.0) 04/26/22 20:50 MCHC 31.3 g/dL (30.0-36.0) 04/26/22 20:50 RDW 13.9 % (12.1-15.1) 04/26/22 20:50 Plt Count 158 10^3/cmm (130-400) 04/26/22 20:50 MPV 11.0 fL (7.4-10.4) H 04/26/22 20:50 Neut % (Auto) 72.4 % 04/26/22 20:50 Lymph % (Auto) 19.8 % 04/26/22 20:50 [place] % (Auto) 6.2 % 04/26/22 20:50 Eos % (Auto) 1.1 % 04/26/22 20:50 Baso % (Auto) 0.1 % 04/26/22 20:50 Neut # (Auto) 5.49 10^3/uL (1.8-7.7) 04/26/22 20:50 Lymph # (Auto) 1.5 10^3/uL (0.8-4.8) 04/26/22 20:50 [place] # (Auto) 0.5 10^3/uL (0.2-0.9) 04/26/22 20:50 Eos # (Auto) 0.1 10^3/uL (0.0-0.8) 04/26/22 20:50 Baso # (Auto) 0.0 10^3/uL (0.0-0.1) 04/26/22 20:50 Nucleated RBC % (auto) 0 % 04/26/22 20:50 Nucleated RBCs # 0.0 /100WBC 04/26/22 20:50 APTT 30.1 SECONDS (23.9-36.7) 04/26/22 20:50 Sodium 138 mmol/L (136-145) 04/26/22 20:50 Potassium 4.0 mmol/L (3.5-5.1) 04/26/22 20:50 Chloride 100 mmol/L (98-107) 04/26/22 20:50 Carbon Dioxide 27 mmol/L (22-29) 04/26/22 20:50 Anion Gap 15.0 (5-19) 04/26/22 20:50 BUN 17 mg/dL (8-23) 04/26/22 20:50 Creatinine 0.6 mg/dL (0.5-0.9) 04/26/22 20:50 GFR Calculation Not Reportable 04/26/22 20:50 Glucose 100 mg/dL (65-115) 04/26/22 20:50 Calculated Osmolality 288 mOsm/kg (285-295) 04/26/22 20:50 Calcium 8.8 mg/dL (8.5-10.5) 04/26/22 20:50 Total Bilirubin 0.5 mg/dL (0.15-1.2) 04/26/22 20:50 AST 124 U/L (0-32) H 04/26/22 20:50 ALT 72 U/L (0-33) H 04/26/22 20:50 Alkaline Phosphatase 150 U/L (35-105) H 04/26/22 20:50 Troponin T Baseline 12 ng/L (0-10) H 04/26/22 20:50 Total Protein 6.1 g/dL (6.6-8.7) L 04/26/22 20:50 Albumin 4.2 g/dL (3.5-5.2) 04/26/22 20:50 Globulin 1.9 g/dL (1.3-4.6) 04/26/22 20:50 Lipase 1130 U/L (13-60) H 04/26/22 20:50 Imaging Data CXR: My impression: Mild atelectasis in the bases bilaterally. No change from previous chest x-ray. Patient has a tortuous aorta but does not appear enlarged. Otherwise chest x- ray is clear. No infiltrates or effusions. CT Abd/Pel: Radiologist's impression: PROCEDURE INFORMATION: Exam: CT Abdomen And Pelvis With Contrast Exam date and time: 04/26/2022 10:10 PM Age: 82 years old Clinical indication: Pain and abnormal findings; Abnormal lab test; Elevated lipase; Abdominal pain; Generalized; Prior surgery; Surgery type: Coronary stent. Gb. Hysterectomy. Patient HX: C/O abd and back pain. Lipase of 1100. ; Additional info: Upper abd pain; Acute pancreatitis, lipase 1100; Transaminitis; H/o cholecystectomy. TECHNIQUE: Imaging protocol: Computed tomography of the abdomen and pelvis with contrast. Radiation optimization: All CT scans at this facility use at least one of these dose optimization techniques: automated exposure control; mA and/or kV adjustment per patient size (includes targeted exams where dose is matched to clinical indication); or iterative reconstruction. Contrast material: OMNI 350; Contrast volume: 100 ml; Contrast route: INTRAVENOUS (IV);? Other protocol: This patient has received 0 known CTs and 0 known cardiac nuclear medicine studies in the 12 months prior to the current study. COMPARISON: CT abdomen pelvis w con* [id number] 12/25/2019 3:10 PM RADIATION DOSE METRICS: Total DLP (mGy-cm): 471.83 FINDINGS: Lungs: Minor atelectatic changes interstitial changes at the lung bases. Liver: Normal. No mass. Gallbladder and bile ducts: Gallbladder has been removed. There is moderate dilatation of the common bile duct unchanged. Pancreas: Unremarkable. Main pancreatic duct is not significantly dilated. No inflammatory changes detected. Spleen: Normal. No splenomegaly. Adrenal glands: Normal. No mass. Kidneys and ureters: There are few small cortical cysts both kidneys too small to adequately characterize otherwise kidneys are unremarkable. Stomach and bowel: Scattered diverticula large bowel without evidence of diverticulitis. Appendix: No evidence of appendicitis. Intraperitoneal space: Unremarkable. No free air. No significant fluid collection. Vasculature: Abdominal aorta and iliac vessels are diffusely calcified. There is no aortic aneurysm. Lymph nodes: Unremarkable. No enlarged lymph nodes. Urinary bladder: Unremarkable as visualized. Reproductive: Uterus has been removed. Bones/joints: Unremarkable. No acute fracture. Soft tissues: Unremarkable. CT/CT abdomen pelvis w con* [id number] IMPRESSION: 1. No acute findings within the abdomen or pelvis. 2. No evidence of acute pancreatitis. 3. Prior cholecystectomy with stable dilatation of the biliary system. 4. Colonic diverticulosis. No evidence of acute diverticulitis. 5. Additional chronic findings as above. ? Dictated By: Wes Lakhani MD Signed By: Wes Lakhani MD Signed Date/Time: 04/26/22 [id number] EKG Data EKG 1: I personally reviewed and interpreted this EKG as follows: EKG interpretation date: 04/26/22 EKG interpretation time: 20:26 Interpretation: EKG shows normal sinus rhythm with heart rate of 66. Normal axis. Normal ST segments. Normal T waves, normal P waves, normal IN interval, normal QT interval. Normal QRS. Normal EKG. Discharge Plan Discharge Patient Disposition: Placed in Observation Clinical Impression: Abdominal pain, acute, right upper quadrant, Transaminitis Acute pancreatitis Qualifiers: Pancreatitis type: unspecified pancreatitis type Acute pancreatitis complication: unspecified Qualified Code(s): K85.90 - Acute pancreatitis without necrosis or infection, unspecified Chest pain Qualifiers: Chest pain type: unspecified Qualified Code(s): R07.9 - Chest pain, unspecified Coding Level of Care Code ED Customer Support Specialist for Petr Luque
[2022-04-26] MEDS: ondansetron 2 mg/ML SDV 2 mL 4 MG IVP (21:10)
[2022-04-26 21:11] LABS: Basophils % 0.1 %; Eosinophils # 0.1 10^3/uL (0.0-0.8); Eosinophils % 1.1 %; Hematocrit 42.2 % (37.0-47.0); Hemoglobin 13.2 g/dL (11.5-15.3); Lymphocytes # 1.5 10^3/uL (0.8-4.8); Lymphocytes % 19.8 %; Mean Corpuscular HGB Conc 31.3 g/dL (30.0-36.0); Mean Corpuscular Hemoglobin 30.8 pg (28.0-34.0); Mean Corpuscular Volume 98.4 fl (81-99); Monocytes # 0.5 10^3/uL (0.2-0.9); Monocytes % 6.2 %; Neutrophils # 5.49 10^3/uL (1.8-7.7); Neutrophils % 72.4 %; Nucleated Red Blood Cells % 0 %; Platelet Count 158 10^3/cmm (130-400); Red Blood Count 4.29 10^6/uL (4.1-5.3); Red Cell Distribution Width 13.9 % (12.1-15.1); White Blood Count 7.6 10^3/uL (4.0-10.0)
[2022-04-26] MEDS: morphine 4 mg/mL SDV 1 mL 2 MG IVP ×3 (21:11→23:38)
[2022-04-26 21:25] LABS: Partial Thromboplastin Time 30.1 SECONDS (23.9-36.7)
[2022-04-26 21:26] LABS: Troponin(5th) Baseline 12 ng/L (0-10)
[2022-04-26 21:28] LABS: Alanine Aminotransferase 72 U/L (0-33); Albumin Level 4.2 g/dL (3.5-5.2); Alkaline Phosphatase 150 U/L (35-105); Aspartate Amino Transferase 124 U/L (0-32); Blood Urea Nitrogen 17 mg/dL (8-23); Calcium 8.8 mg/dL (8.5-10.5); Carbon Dioxide 27 mmol/L (22-29); Chloride 100 mmol/L (98-107); Creatinine Clr Calc Pharmacy 56.7915; Globulin 1.9 g/dL (1.3-4.6); Glucose 100 mg/dL (65-115); Osmolality Calculated 288 mOsm/kg (285-295); Sodium 138 mmol/L (136-145); Total Bilirubin 0.5 mg/dL (0.15-1.2); Total Protein 6.1 g/dL (6.6-8.7)
[2022-04-26 21:38] LABS: Lipase 1130 U/L (13-60)
--- NOTE | 2022-04-26 21:50 | CTR_ITS ---
PROCEDURE INFORMATION: Exam: CT Abdomen And Pelvis With Contrast Exam date and time: 04/26/2022 10:10 PM Age: 82 years old Clinical indication: Pain and abnormal findings; Abnormal lab test; Elevated lipase; Abdominal pain; Generalized; Prior surgery; Surgery type: Coronary stent. Gb. Hysterectomy. Patient HX: C/O abd and back pain. Lipase of 1100. ; Additional info: Upper abd pain; Acute pancreatitis, lipase 1100; Transaminitis; H/o cholecystectomy. TECHNIQUE: Imaging protocol: Computed tomography of the abdomen and pelvis with contrast. Radiation optimization: All CT scans at this facility use at least one of these dose optimization techniques: automated exposure control; mA and/or kV adjustment per patient size (includes targeted exams where dose is matched to clinical indication); or iterative reconstruction. Contrast material: OMNI 350; Contrast volume: 100 ml; Contrast route: INTRAVENOUS (IV); Other protocol: This patient has received 0 known CTs and 0 known cardiac nuclear medicine studies in the 12 months prior to the current study. COMPARISON: CT abdomen pelvis w con* [id number] 12/25/2019 3:10 PM RADIATION DOSE METRICS: Total DLP (mGy-cm): 471.83 FINDINGS: Lungs: Minor atelectatic changes interstitial changes at the lung bases. Liver: Normal. No mass. Gallbladder and bile ducts: Gallbladder has been removed. There is moderate dilatation of the common bile duct unchanged. Pancreas: Unremarkable. Main pancreatic duct is not significantly dilated. No inflammatory changes detected. Spleen: Normal. No splenomegaly. Adrenal glands: Normal. No mass. Kidneys and ureters: There are few small cortical cysts both kidneys too small to adequately characterize otherwise kidneys are unremarkable. Stomach and bowel: Scattered diverticula large bowel without evidence of diverticulitis. Appendix: No evidence of appendicitis. Intraperitoneal space: Unremarkable. No free air. No significant fluid collection. Vasculature: Abdominal aorta and iliac vessels are diffusely calcified. There is no aortic aneurysm. Lymph nodes: Unremarkable. No enlarged lymph nodes. Urinary bladder: Unremarkable as visualized. Reproductive: Uterus has been removed. Bones/joints: Unremarkable. No acute fracture. Soft tissues: Unremarkable. CT/CT abdomen pelvis w con* [id number] IMPRESSION: 1. No acute findings within the abdomen or pelvis. 2. No evidence of acute pancreatitis. 3. Prior cholecystectomy with stable dilatation of the biliary system. 4. Colonic diverticulosis. No evidence of acute diverticulitis. 5. Additional chronic findings as above.
[2022-04-26 21:58] VITALS: BP 131/57; PULSE 74; RESP 20; O2SAT 94
[2022-04-26] MEDS: iohexol 350 mg/mL 500 mL Btl (per mL) IV (22:11)
--- NOTE | 2022-04-26 22:21 | ECG_ITS ---
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 Measurements Intervals [place] Rate: 54 P: 30 NC: 202 QRS: 37 QRSD: 85 T: 48 QT: 416 QTc: 396 Interpretive Statements SINUS BRADYCARDIA WARNING: DATA QUALITY MAY AFFECT INTERPRETATION Compared to ECG 04/27/2022 02:27:56 Sinus rhythm no longer present Electronically Signed On 04-27-2022 12:56:54 LIDDING MACHINE OPERATOR by Nazanin Rosenthal M.D. [email or web address].[email or web address]. ruby memorial hospitalJuneau Biosciences/store/OM/[id number]
[2022-04-26 22:30] VITALS: BP 136/63; O2SAT 93
[2022-04-26 23:00] VITALS: BP 132/63; O2SAT 94
[2022-04-26 23:30] VITALS: BP 119/67; O2SAT 93
[2022-04-26 23:38] VITALS: RESP 16
[2022-04-26] MEDS: dextrose 5%-sod chloride 0.45% 1,000 ML 100 ML IV (23:38)
[2022-04-26 23:47] LABS: Troponin 5 2HR 10.16 ng/L (0-10)
[2022-04-26 23:49] LABS: Troponin 5 2HR Delta -1.84 ABS# (0-10)
[2022-04-27] VITALS (10 sets, daily range): BP systolic 107–145; BP diastolic 65–82; PULSE 20–74; RESP 16–74; TEMP 36.7–36.9; O2SAT 91–97
--- NOTE | 2022-04-27 00:05 | US_ITS ---
WS: [id number] Complete ABDOMINAL ULTRASOUND HISTORY: TRANSAMINITIS COMPARISON: 12/25/2019, CT 04/26/2022 Liver: 15.5 cm in length. Normal size liver. No mass identified. Normal portal vein. Portal Vein: Normal hepatopetal flow with monophasic waveform. Gallbladder: Prior cholecystectomy. Common bile duct is dilated throughout its course measuring up to 1.0 cm. Similar to prior studies. Pancreas: There is very slight prominence of the pancreatic duct. No pancreatic mass identified. CBD: 1.0 cm. Right kidney: 10.3 cm x 5.0 cm x 4.4 cm. No mass, cortical thickening or hydronephrosis. Left kidney: 11.9 cm x 6.5 cm x 5.4 cm. No mass, cortical thickening or hydronephrosis. Spleen: Normal size and echogenicity. Abdominal aorta and IVC are within normal limits. No ascites. US/US abdomen complete* [id number] IMPRESSION: 1. Status post cholecystectomy. 2. Chronic dilatation of the common bile duct is likely physiologic and relate d to cholecystectomy. 3. Mild pancreatic duct prominence. No obstructing calcification or pancreatic mass is identified. CT was also performed on the same day and appears negative . For further evaluation. ERCP or MRCP may provide additional information. This may be a normal mild dilatation of the pancreatic duct for patient's age.
--- NOTE | 2022-04-27 00:06 | P.HP_ITS ---
Providers/Chief Complaint Admitting Physician: He Davies MD Primary Care Provider: Parvez Kay DO Chief Complaint: CP History of Present Illness April Schwartz is a 82 year old female with past medical history of hypertension coronary artery disease, s/p PCI in 2017 ,COVID-19, came in today with chief complaint of substernal chest pain as well as right upper quadrant and epigastric abdominal pain, accompanied with nausea and vomiting started this evening, and since then it has progressively worsened. She denied shortness of breath fever, PND orthopnea. Today she was at her primary care physician's office where she was diagnosed with sinus infection and was started on amoxicillin as well as Tylenol No. 3. CT abdomen and pelvis: No acute abdominal or pelvic findings, Prior cholecystectomy with stable dilatation of the biliary system.?No evidence of ac [place] pancreatitis. X-ray chest: No infiltrates no effusion no pneumothorax possibly cardiomegaly. EKG: Sinus rhythm Pertinent lab: WBC 7.6, H&H 13/42, PLT : 158 , sodium 138 potassium 4, BUN 17 creatinine 0.6, total bilirubin 0.5, AST 124, ALT 72, ALP 150. Troponin trend: 12-10 Lipase 1130 Review of Systems General: Reports: 10 or more systems reviewed and unremarkable except in HPI and below Const: Denies: fever(s), chills, body aches, change in appetite or diaphoresis Card: Denies: palpitations, edema, swelling of feet/ankles, dyspnea on exertion, orthopnea or leg pain with exertion Resp: Denies: dyspnea, productive cough, wheezing or pain on inspiration GI: Reports: abdominal pain, nausea and vomiting; Denies: diarrhea or constipation : Denies: flank pain Musc: Denies: back pain, extremity pain or extremity swelling Neuro: Denies: headache(s), difficulty walking or confusion Medications/Allergies Home Medications Medication Instructions Recorded Confirmed Last Taken Type aspirin 81 mg tablet,delayed 81 mg PO DAILY 04/17/19 04/27/22 04/26/22 08:00 History release (Adult Aspirin Regimen) atorvastatin 20 mg tablet 20 mg PO DAILY 04/17/19 04/27/22 04/26/22 08:00 History nitroglycerin 0.4 mg sublingual 0.4 mg sublingual Q5M PRN chest 04/17/19 10/06/20 1 Day Ago History tablet (Nitrostat) pain ~11/01/19 vit C 226 mg-vit E 90 mg-copper 1 cap PO PRN PRN low vitamin count 04/17/19 10/06/20 1 Week Ago History 0.8 mg-zinc oxide-lutein 5 mg ~10/26/19 capsule (PreserVision Lutein) metoprolol tartrate 25 mg tablet 25 mg PO BID 12/27/19 04/27/22 04/26/22 08:00 History apixaban 2.5 mg tablet (Eliquis) 2.5 mg PO BID #20 tabs 12/29/19 10/06/20 Unknown Rx dexamethasone 6 mg tablet 6 mg PO Q24H #6 tabs 12/29/19 10/06/20 Unknown Rx omeprazole 40 mg capsule,delayed 40 mg PO BID #60 caps 12/29/19 10/06/20 Unknown Rx release lisinopril 20 mg tablet 40 mg PO BID 04/21/20 04/27/22 04/26/22 08:00 History telmisartan 20 mg tablet (Micardis) 20 mg PO DAILY #30 tabs 04/24/20 10/06/20 Unknown Rx amlodipine 10 mg tablet 10 mg PO DAILY #90 tabs 05/08/20 10/06/20 Unknown Rx Allergies Allergy/AdvReac Type Severity Reaction Status Date / Time naproxen [From Aleve] Allergy Intermediate RASH Verified 10/06/20 10:36 PFSH Acute PFSH: Medical History Carotid stenosis Coronary artery disease Dyslipidemia Essential hypertension Flexor tenosynovitis of finger Osteoarthritis of carpometacarpal joint of left thumb Osteoporosis PMR (polymyalgia rheumatica) Sleep apnea Trigger finger, left index finger Surgical History H/O arthroscopic knee surgery H/O cataract extraction H/O hysterectomy for benign disease History of cholecystectomy Hx of coronary angioplasty Family History Other CAD (coronary artery disease) Cancer Diabetes Hypertension Rheumatoid arthritis Denies family history of Chronic kidney disease (CKD) Lung disease Social History Smoking and tobacco status: former smoker Quit status (tobacco): has quit using tobacco Year quit tobacco: 2012 -1.5 PPD x 50 Years Second hand smoke exposure: Yes Smoking risk assessment/counseling performed?: Yes Alcohol intake: never Desire information about alcohol rehabilitation?: No Lives independently: Yes Household members: none Housing: House Marital status: / Current occupational status: employed Current occupational exposures/hazards: No History of recent travel: No Current gender identity: Female Female Reproductive History: Date of last menstrual period: 12/28/1966 Vitals/I&O/Wt Last Vital Signs Temp 98.3 F 04/27/22 00:00 Pulse 105 H 04/27/22 00:00 Resp 20 H 04/27/22 00:00 BP 114/74 04/27/22 00:00 Pulse Ox 96 04/27/22 00:00 O2 Del Method 04/26/22 20:19 Weight last 48 hrs Weight 73.482 kg Physical Exam Const: COMMON NORMALS: patient oriented x3 HENMT: COMMON NORMALS: normocephalic and atraumatic Eye: COMMON NORMALS: no scleral icterus GENERAL EYE: appearance normal, both eyes and all related structures Resp: COMMON NORMALS: normal respiratory effort, No retractions, No use of accessory muscles and clear to auscultation bilaterally EFFORT & INSPECTION: Yes symmetric chest movement AUSCULTATION: clear to auscultation bilaterally Cardio: COMMON NORMALS: regular rate, regular rhythm, S1 normal heart sound present, S2 normal heart sound present, No gallops present (Cardio), No murmurs present (Cardio), No rub (Cardio) and Peripheral pulses 2+ throughout RATE: regular rate RHYTHM: regular rhythm HEART SOUNDS: S1 normal heart sound present and S2 normal heart sound present PERIPHERAL PULSES: Peripheral pulses 2+ throughout GI: COMMON NORMALS: Normal to inspection, nondistended, normoactive bowel sounds present AUSCULTATION: Yes normoactive bowel sounds PALPATION: Yes No hepatosplenomegaly present RECTAL EXAM: deferred Extremity: COMMON NORMALS: no clubbing, cyanosis or edema and no pedal edema Neuro: COMMON NORMALS: patient oriented x3 Data 04/26/22 20:50 04/26/22 20:50 A&P Assessment and plan (1) Chest pain: Qualifiers: Chest pain type: unspecified Qualified Code(s): R07.9 - Chest pain, unspecified (2) Acute pancreatitis: Qualifiers: Acute pancreatitis complication: unspecified Pancreatitis type: unspecified pancreatitis type Qualified Code(s): K85.90 - Acute pancreatitis without necrosis or infection, unspecified (3) Transaminitis: (4) Essential hypertension: (5) CAD (coronary artery disease): Plan 82 year old female with past medical history of hypertension coronary artery disease, s/p PCI in 2017 ,COVID-19, came in today with chief complaint of substernal chest pain as well as right upper quadrant and epigastric abdominal pain, accompanied with nausea and vomiting started this evening, and since then it has progressively worsened. She denied shortness of breath fever, PND orthopnea. Assessment: Acute pancreatitis: Patient has epigastric abdominal pain, elevated lipase, though currently CT abdomen has failed to show any signs of acute pancreatitis. Follow lipid panel Currently on clear liquid diet, pain control, IV hydration, antiemetics. Plan to advance diet as tolerated Chest pain: Likely noncardiac Has no acute ST-T wave changes on EKG, troponin trend is unremarkable. Continue telemetry monitoring Transaminitis: Patient has prior history of cholecystectomy Follow ultrasound abdomen Monitor CMP Follow hepatitis panel History of coronary artery disease s/p PCI: Continue aspirin No acute intervention needed at this time History of hypertension: Continue amlodipine CODE STATUS: Full code DVT prophylaxis on Lovenox Attestations Medical Necessity Statement*: Patient needs to be in hospital for management of acute pancreatitis. Coding Level of Care Code 70385 Diagnoses Chest pain R07.9 Chest pain type: unspecified Acute pancreatitis K85.90 Acute pancreatitis complication: unspecified Pancreatitis type: unspecified pancreatitis type Transaminitis R74.01 Essential hypertension I10 CAD (coronary artery disease) I25.10
[2022-04-27] MEDS: enoxaparin 40 mg/0.4 mL Syringe SUBCUT ×2 (00:53→23:25)
[2022-04-27] MEDS: pantoprazole 40 mg SDV IVP ×2 (00:53→23:25)
--- NOTE | 2022-04-27 02:21 | ECG_ITS ---
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 Measurements Intervals [place] Rate: 61 P: 0 CO: 199 QRS: 41 QRSD: 90 T: 39 QT: 397 QTc: 402 Interpretive Statements SINUS RHYTHM Compared to ECG 04/26/2022 20:24:47 No significant changes Electronically Signed On 04-27-2022 13:02:09 COLLAR STITCHER by Nazanin Rosenthal M.D. [id number]
[2022-04-27 02:26] LABS: Eosinophils % 0.2 %; Hematocrit 38.7 % (37.0-47.0); Hemoglobin 12.2 g/dL (11.5-15.3); Lymphocytes # 0.9 10^3/uL (0.8-4.8); Lymphocytes % 16.2 %; Mean Corpuscular HGB Conc 31.5 g/dL (30.0-36.0); Mean Corpuscular Hemoglobin 31.4 pg (28.0-34.0); Mean Corpuscular Volume 99.5 fl (81-99); Mean Platelet Volume 10.7 fL (7.4-10.4); Monocytes # 0.2 10^3/uL (0.2-0.9); Monocytes % 4.5 %; Neutrophils # 4.18 10^3/uL (1.8-7.7); Neutrophils % 78.9 %; Nucleated Red Blood Cells % 0 %; Platelet Count 138 10^3/cmm (130-400); Red Blood Count 3.89 10^6/uL (4.1-5.3); Red Cell Distribution Width 13.9 % (12.1-15.1); White Blood Count 5.3 10^3/uL (4.0-10.0)
[2022-04-27 02:54] LABS: Troponin 5 6HR 10.17 ng/L (0-10)
[2022-04-27 02:55] LABS: Troponin 5 6HR Delta -1.83 ng/L (0-12)
[2022-04-27 02:58] LABS: Albumin Level 3.7 g/dL (3.5-5.2); Alkaline Phosphatase 264 U/L (35-105); Anion Gap 13.2 (5-19); Blood Urea Nitrogen 17 mg/dL (8-23); Calcium 8.1 mg/dL (8.5-10.5); Carbon Dioxide 27 mmol/L (22-29); Chloride 100 mmol/L (98-107); Creatinine Clr Calc Pharmacy 56.7915; Globulin 2.2 g/dL (1.3-4.6); Glucose 158 mg/dL (65-115); Osmolality Calculated 287 mOsm/kg (285-295); Potassium 4.2 mmol/L (3.5-5.1); Sodium 136 mmol/L (136-145); Total Bilirubin 0.7 mg/dL (0.15-1.2); Total Protein 5.9 g/dL (6.6-8.7)
[2022-04-27 03:10] LABS: Alanine Aminotransferase 792 U/L (0-33)
[2022-04-27 03:17] LABS: Aspartate Amino Transferase 1241 U/L (0-32)
[2022-04-27 03:18] LABS: Lipase 537 U/L (13-60)
[2022-04-27] MEDS: amlodipine 10 mg Tablet PO (08:06)
[2022-04-27] MEDS: aspirin 81 mg EC Tablet PO (08:06)
[2022-04-27] MEDS: acetaminophen 325 mg Tablet 650 MG PO ×2 (08:14→18:57)
[2022-04-27] MEDS: dextrose 5%-sod chloride 0.45% 1,000 ML 100 ML IV ×2 (08:15→18:57)
--- NOTE | 2022-04-27 08:22 | MRR_ITS ---
PROCEDURE INFORMATION: Exam: MR Abdomen Without Contrast Exam date and time: 04/27/2022 4:08 PM Age: 82 years old Clinical indication: Abdominal pain; Acute; Additional info: Dilation of pancreatic duct on ultrasound TECHNIQUE: Imaging protocol: Magnetic resonance imaging of the abdomen without contrast. COMPARISON: CT abdomen pelvis w con* [id number] 04/26/2022 10:10 PM FINDINGS: Liver: A 1 cm cyst is noted in the left hepatic lobe. Gallbladder and bile ducts: Cholecystectomy. Common bile duct is mildly dilated up to 1 cm with mild central intrahepatic biliary dilation. There is no obstructing stone or focal stenosis within the common bile duct and findings likely reflect reservoir effect from prior cholecystectomy and age related changes. Pancreas: Pancreatic duct measures up to 4.5 mm in the pancreatic head which is within normal limits for patient's stated age. No focal stenosis or evidence of pancreatic head mass. No pancreatic/peripancreatic inflammation is appreciated on exam. Spleen: Unremarkable. No splenomegaly. Adrenal glands: Unremarkable. No mass. Kidneys and ureters: A few subcentimeter cysts noted in both kidneys. No solid mass. No hydronephrosis. Stomach and bowel: Visualized stomach and intestines are unremarkable. Intraperitoneal space: No free fluid. Vasculature: No abdominal aortic aneurysm. Bones/joints: Unremarkable. Soft tissues: Unremarkable. MR/MR MRCP [id number] IMPRESSION: 1. Pancreatic duct measures up to 4.5 mm in the pancreatic head. This is within normal limits for patient's stated age and location in the pancreatic head. There is no evidence of focal stenosis or mass in this region. 2. Mildly dilated common bile duct up to 1 cm and mild central intrahepatic biliary dilation without choledocholithiasis or focal stenosis, these findings likely reflect reservoir effect from prior cholecystectomy and age related changes. COMMENTS: Consistent with the [place] [employer]'s Incidental Findings Committee white paper (J Am Mallory Radiol 2018): Any incidental renal lesion less than 1 cm or classified as too small to characterize, or any incidental cystic renal lesion characterized as simple-appearing, is likely benign. No follow-up imaging is recommended for these lesions per consensus recommendations based on imaging criteria.
[2022-04-27] MEDS: morphine 4 mg/mL SDV 1 mL 2 MG IVP (11:39)
[2022-04-28] VITALS (9 sets, daily range): BP systolic 126–148; BP diastolic 73–83; PULSE 66–70; RESP 12–17; TEMP 36.7–36.9; O2SAT 92–97
[2022-04-28 05:18] LABS: Eosinophils # 0.1 10^3/uL (0.0-0.8); Eosinophils % 3.3 %; Hematocrit 40.1 % (37.0-47.0); Hemoglobin 12.3 g/dL (11.5-15.3); Lymphocytes # 1.2 10^3/uL (0.8-4.8); Mean Corpuscular HGB Conc 30.7 g/dL (30.0-36.0); Mean Corpuscular Hemoglobin 31.4 pg (28.0-34.0); Mean Corpuscular Volume 102.3 fl (81-99); Mean Platelet Volume 10.9 fL (7.4-10.4); Monocytes # 0.3 10^3/uL (0.2-0.9); Monocytes % 7.7 %; Neutrophils # 2.54 10^3/uL (1.8-7.7); Neutrophils % 60.8 %; Nucleated Red Blood Cells % 0 %; Platelet Count 137 10^3/cmm (130-400); Red Blood Count 3.92 10^6/uL (4.1-5.3); Red Cell Distribution Width 13.7 % (12.1-15.1); White Blood Count 4.2 10^3/uL (4.0-10.0)
[2022-04-28 05:49] LABS: Alanine Aminotransferase 487 U/L (0-33); Albumin Level 3.5 g/dL (3.5-5.2); Alkaline Phosphatase 237 U/L (35-105); Anion Gap 12.7 (5-19); Aspartate Amino Transferase 241 U/L (0-32); Blood Urea Nitrogen 8 mg/dL (8-23); Calcium 8.4 mg/dL (8.5-10.5); Carbon Dioxide 29 mmol/L (22-29); Chloride 102 mmol/L (98-107); Chol HDL Ratio 2.27 mg/dL (0.0-4.40); Cholesterol 109 mg/dL (0-200); Creatinine Clr Calc Pharmacy 56.7915; Globulin 2.3 g/dL (1.3-4.6); Glucose 98 mg/dL (65-115); HDL Cholesterol 48 mg/dL (60-100); LDL Cholesterol Calculated 45 mg/dL (50-129); LDL HDL Ratio 0.94 RATIO (0.00-3.22); Osmolality Calculated 288 mOsm/kg (285-295); Potassium 3.7 mmol/L (3.5-5.1); Sodium 140 mmol/L (136-145); Total Bilirubin 0.3 mg/dL (0.15-1.2); Total Protein 5.8 g/dL (6.6-8.7); Triglycerides 82 mg/dL (0-150)
[2022-04-28] MEDS: acetaminophen 325 mg Tablet 650 MG PO (05:55)
[2022-04-28] MEDS: dextrose 5%-sod chloride 0.45% 1,000 ML 100 ML IV (08:31)
[2022-04-28] MEDS: aspirin 81 mg EC Tablet PO (08:33)
[2022-04-28] MEDS: amlodipine 10 mg Tablet PO (08:35)
--- NOTE | 2022-04-28 12:03 | P.PN_ITS ---
Subjective Subjective: Seen this morning. No acute events overnight. Patient is feeling better. She says her epigastric pain has resolved. Chest pain/back pain has also resolved. MRCP was completed yesterday. Pancreatic duct measures 4.5 mm in pancreatic head. This is within normal limits for patient stated age and location and pancreatic head. There is no evidence of focal stenosis or mass. Mildly dilated common bile duct up to 1 cm and mild central intrahepatic biliary dilation without cholelithiasis or focal stenosis these findings likely reflect reservoir effect from prior cholecystectomy and age-related changes. Vitals/I&O/Wt Last Vital Signs Temp 98.2 F 04/28/22 11:54 Pulse 67 04/28/22 11:54 Resp 17 04/28/22 11:54 BP 128/78 04/28/22 11:54 Pulse Ox 97 04/28/22 11:54 O2 Del Method 04/28/22 11:33 O2 Flow Rate 2 04/28/22 11:33 04/27/22 04/28/22 04/28/22 22:59 06:59 14:59 Intake Total 1200 / 2421.667 1000 / 3421.667 Output Total 700 / 1500 650 / 650 Balance 500 / 455.434 8480 / 1921.667 -650 / -650 Weight last 48 hrs Weight 73.482 kg Physical Exam Narrative: Laying in bed appearing comfortable at this time on 2 L nasal cannula. Does not wear oxygen at home Abdomen soft nontender, no guarding present. No pain on deep palpation either Bowel sounds normal active Chest clear to auscultation bilaterally no wheezes Normal S1-S2 Unremarkable extremities, no edema. Data 04/28/22 04:21 04/28/22 04:21 A&P Assessment and plan (1) Chest pain: Qualifiers: Chest pain type: unspecified Qualified Code(s): R07.9 - Chest pain, unspecified (2) Acute pancreatitis: Qualifiers: Acute pancreatitis complication: unspecified Pancreatitis type: unspecified pancreatitis type Qualified Code(s): K85.90 - Acute pancreatitis without necrosis or infection, unspecified (3) Transaminitis: (4) Essential hypertension: (5) CAD (coronary artery disease): Plan 82 year old female with past medical history of hypertension coronary artery disease, s/p PCI in 2017 ,COVID-19, came in today with chief complaint of substernal chest pain as well as right upper quadrant and epigastric abdominal pain, accompanied with nausea and vomiting started this evening, and since then it has progressively worsened. She denied shortness of breath fever, PND ort hopnea. Assessment: Acute pancreatitis: Patient has epigastric abdominal pain, elevated lipase, though currently CT abdomen has failed to show any signs of acute pancreatitis. Lipid panel is pending at this time. pain control, IV hydration, antiemetics. Patient on clear liquid diet. She is tolerating it well and is feeling hungry. I will transition to brat diet. If she continues to tolerate diet today we will plan to discharge her later tonight on GI soft. She will need a referral to gastroenterology as an outpatient. We will have that set up for her at discharge. Plan to advance diet as tolerated Chest pain mostly in back radiating from epigastric region: Likely noncardiac and related to pancreatitis episode. Has no acute ST-T wave changes on EKG, troponin trend is unremarkable. Continue telemetry monitoring Transaminitis: Patient has prior history of cholecystectomy Ultrasound abdomen was done yesterday which showed chronic dilatation of common bile duct likely physiologic. Mild pancreatic duct prominence. ERCP/MRCP may provide more information. MRCP complete. There is no apparent pancreatic duct dilatation. It is normal for patient's age as per report. Liver enzymes are starting to trend down. I will not recheck a lipase that it is not recommended as per guidelines. Lipase will take days to weeks to return to normal range. Clinically patient is improving. Hepatitis panel pending at this time. History of coronary artery disease s/p PCI: Continue aspirin No acute intervention needed at this time History of hypertension: Continue amlodipine I will stop her D5 half-normal saline and transition her to LR 75 cc/h. Check home oxygen evaluation. CODE STATUS: Full code DVT prophylaxis on Lovenox Only updated at bedside. Attestations Medical Necessity Statement*: We will advance patient's diet today. If she tolerates will plan to send her home today later on in evening. Diagnoses Chest pain R07.9 Chest pain type: unspecified Acute pancreatitis K85.90 Acute pancreatitis complication: unspecified Pancreatitis type: unspecified pancreatitis type Transaminitis R74.01 Essential hypertension I10 CAD (coronary artery disease) I25.10
[2022-04-28 14:57] LABS: Hepatitis A Antibody IgM Non-Reactive (Nonreactive); Hepatitis B Core AB, Total Non-Reactive (Nonreactive); Hepatitis B Surface AB 3.5 (11.5-1000); Hepatitis B Surface Antigen Non-Reactive (Nonreactive); Hepatitis C Virus Antibody Non-Reactive (Nonreactive)
[2022-04-28] MEDS: lactated ringers 1,000 ML 75 ML IV (15:47)
--- NOTE | 2022-04-28 16:55 | PM.DCS ---
Discharge Providers Date of Admission: 04/26/22 23:12 Date of Discharge: April 28, 2022 Attending Provider at Admission: He Davies MD Attending Provider at Discharge: Lora Uriarte MD Primary Care Provider: Parvez Kay DO Diagnoses at Discharge Discharge Diagnosis (1) Chest pain: Status: Resolved Qualifiers: Chest pain type: unspecified Qualified Code(s): R07.9 - Chest pain, unspecified (2) Acute pancreatitis: Status: Acute Qualifiers: Acute pancreatitis complication: unspecified Pancreatitis type: unspecified pancreatitis type Qualified Code(s): K85.90 - Acute pancreatitis without necrosis or infection, unspecified (3) Transaminitis: Status: Acute (4) Essential hypertension: Status: Acute (5) CAD (coronary artery disease): Status: Acute Reason for Visit Reason for Visit: CP Brief History: April Schwartz is a 82 year old female with past medical history of hypertension coronary artery disease, s/p PCI in 2017 ,COVID-19, came in today with chief complaint of substernal chest pain as well as right upper quadrant and epigastric abdominal pain, accompanied with nausea and vomiting started this evening, and since then it has progressively worsened. She denied? shortness of breath fever, PND orthopnea.? Today she was at her primary care physician's office where she was diagnosed with sinus infection and was started on amoxicillin as well as Tylenol No. 3. CT abdomen and pelvis: No acute abdominal or pelvic findings,?Prior cholecystectomy with stable dilatation of the biliary system.?No evidence of acute pancreatitis. X-ray chest: No infiltrates no effusion no pneumothorax possibly cardiomegaly. EKG: Sinus rhythm Pertinent lab:? WBC 7.6, H&H 13/42, PLT : 158 , sodium 138 potassium 4, BUN 17 creatinine 0.6, total bilirubin 0.5, AST 124, ALT 72, ALP 150. Troponin trend: 12-10 Lipase 1130 Hospital Course Hospital Course Patient was admitted for acute pancreatitis. Lipase was [address] abdomen pelvis however did not show any signs of acute pancreatitis but did have a questionable dilation of pancreatic duct. MRCP or ERCP was recommended. Ultrasound abdomen was also completed. MRCP was done which showed no gross abnormalities. Liver enzymes did elevate on admission and started to trend down. Patient was tolerating a diet at discharge and was sent home in stable condition with follow-up with GI as an outpatient. Family was updated at bedside and all questions were answered to satisfaction. Patient discharged home in stable condition. Physical Exam Narrative: Laying in bed appearing comfortable at this time on 2 L nasal cannula. Does not wear oxygen at home Abdomen soft nontender, no guarding present. No pain on deep palpation either Bowel sounds normal active Chest clear to auscultation bilaterally no wheezes Normal S1-S2 Unremarkable extremities, no edema. Discharge Data Studies Completed and Pending Completed Studies During Hospitalization Category Date Time Status CT abdomen pelvis w con* [id number] Urgent Cat Scan 04/26/22 21:50 Completed XR chest 1V portable [id number] Stat Exams 04/26/22 20:21 Completed MR MRCP [id number] Urgent MRI 04/27/22 08:22 Completed US abdomen complete* [id number] Routine Ultrasound 04/27/22 00:05 Completed Pending at discharge Category Date Time Status Complete Blood Count w/Auto AM LABS Lab 04/29/22 04:00 Ordered Complete Blood Count w/Auto AM LABS Lab 04/30/22 04:00 Ordered Comprehensive Metabolic Panel AM LABS Lab 04/29/22 04:00 Ordered Comprehensive Metabolic Panel AM LABS Lab 04/30/22 04:00 Ordered Radiology Impressions Chest X-Ray 04/26/22 20:21 IMPRESSION: Possible cardiomegaly.Heart size not optimally evaluated with a single AP view of the chest. Abdomen/Pelvis CT 04/26/22 21:50 IMPRESSION: 1. No acute findings within the abdomen or pelvis. 2. No evidence of acute pancreatitis. 3. Prior cholecystectomy with stable dilatation of the biliary system. 4. Colonic diverticulosis. No evidence of acute diverticulitis. 5. Additional chronic findings as above. Abdomen Ultrasound 04/27/22 00:05 IMPRESSION: 1. Status post cholecystectomy. 2. Chronic dilatation of the common bile duct is likely physiologic and related to cholecystectomy. 3. Mild pancreatic duct prominence. No obstructing calcification or pancreatic mass is identified. CT was also performed on the same day and appears negative. For further evaluation. ERCP or MRCP may provide additional information. This may be a normal mild dilatation of the pancreatic duct for patient's age. Cholangiopancreatography MRI 04/27/22 08:22 IMPRESSION: 1. Pancreatic duct measures up to 4.5 mm in the pancreatic head. This is within normal limits for patient's stated age and location in the pancreatic head. There is no evidence of focal stenosis or mass in this region. 2. Mildly dilated common bile duct up to 1 cm and mild central intrahepatic biliary dilation without choledocholithiasis or focal stenosis, these findings likely reflect reservoir effect from prior cholecystectomy and age related changes. COMMENTS: Consistent with the [employer]'s Incidental Findings Committee white paper (J Am Mallory Radiol 2018): Any incidental renal lesion less than 1 cm or classified as too small to characterize, or any incidental cystic renal lesion characterized as simple-appearing, is likely benign. No follow-up imaging is recommended for these lesions per consensus recommendations based on imaging criteria. Laboratory Results WBC 4.2 10^3/uL (4.0-10.0) 04/28/22 04:21 RBC 3.92 10^6/uL (4.1-5.3) L 04/28/22 04:21 Hgb 12.3 g/dL (11.5-15.3) 04/28/22 04:21 Hct 40.1 % (37.0-47.0) 04/28/22 04:21 MCV 102.3 fl (81-99) H 04/28/22 04:21 MCH 31.4 pg (28.0-34.0) 04/28/22 04:21 MCHC 30.7 g/dL (30.0-36.0) 04/28/22 04:21 RDW 13.7 % (12.1-15.1) 04/28/22 04:21 Plt Count 137 10^3/cmm (130-400) 04/28/22 04:21 MPV 10.9 fL (7.4-10.4) H 04/28/22 04:21 Neut % (Auto) 60.8 % 04/28/22 04:21 Lymph % (Auto) 28.0 % 04/28/22 04:21 Ripley % (Auto) 7.7 % 04/28/22 04:21 Eos % (Auto) 3.3 % 04/28/22 04:21 Baso % (Auto) 0.0 % 04/28/22 04:21 Neut # (Auto) 2.54 10^3/uL (1.8-7.7) 04/28/22 04:21 Lymph # (Auto) 1.2 10^3/uL (0.8-4.8) 04/28/22 04:21 Ripley # (Auto) 0.3 10^3/uL (0.2-0.9) 04/28/22 04:21 Eos # (Auto) 0.1 10^3/uL (0.0-0.8) 04/28/22 04:21 Baso # (Auto) 0.0 10^3/uL (0.0-0.1) 04/28/22 04:21 Nucleated RBC % (auto) 0 % 04/28/22 04:21 Nucleated RBCs # 0.0 /100WBC 04/28/22 04:21 APTT 30.1 SECONDS (23.9-36.7) 04/26/22 20:50 Sodium 140 mmol/L (136-145) 04/28/22 04:21 Potassium 3.7 mmol/L (3.5-5.1) 04/28/22 04:21 Chloride 102 mmol/L (98-107) 04/28/22 04:21 Carbon Dioxide 29 mmol/L (22-29) 04/28/22 04:21 Anion Gap 12.7 (5-19) 04/28/22 04:21 BUN 8 mg/dL (8-23) 04/28/22 04:21 Creatinine 0.5 mg/dL (0.5-0.9) 04/28/22 04:21 GFR Calculation Not Reportable 04/28/22 04:21 Glucose 98 mg/dL (65-115) 04/28/22 04:21 Calculated Osmolality 288 mOsm/kg (285-295) 04/28/22 04:21 Calcium 8.4 mg/dL (8.5-10.5) L 04/28/22 04:21 Total Bilirubin 0.3 mg/dL (0.15-1.2) 04/28/22 04:21 AST 241 U/L (0-32) H 04/28/22 04:21 ALT 487 U/L (0-33) H 04/28/22 04:21 Alkaline Phosphatase 237 U/L (35-105) H 04/28/22 04:21 Troponin T Baseline 12 ng/L (0-10) H 04/26/22 20:50 Troponin T 120 Minute 10.16 ng/L (0-10) H 04/26/22 23:18 Delta Troponin T -1.84 ABS# (0-10) L 04/26/22 23:18 Troponin T Hi Sens 6Hr 10.17 ng/L (0-10) H 04/27/22 02:18 Troponin T Hi Sens 6Hr Delta -1.83 ng/L (0-12) L 04/27/22 02:18 Total Protein 5.8 g/dL (6.6-8.7) L 04/28/22 04:21 Albumin 3.5 g/dL (3.5-5.2) 04/28/22 04:21 Globulin 2.3 g/dL (1.3-4.6) 04/28/22 04:21 Triglycerides Cancelled 04/28/22 Unknown Cholesterol Cancelled 04/28/22 Unknown LDL Cholesterol, Calc Cancelled 04/28/22 Unknown HDL Cholesterol Cancelled 04/28/22 Unknown LDL/HDL Ratio Cancelled 04/28/22 Unknown Cholesterol/HDL Ratio Cancelled 04/28/22 Unknown Lipase 537 U/L (13-60) H 04/27/22 02:18 Hepatitis A IgM Ab Non-reactive (Nonreactive) 04/26/22 20:50 Hep Bs Antigen Non-reactive (Nonreactive) 04/26/22 20:50 Hep Bs Antibody 3.5 (11.5-1000) L 04/26/22 20:50 Hep B Core Total Ab Non-reactive (Nonreactive) 04/26/22 20:50 Hepatitis C Antibody Non-reactive (Nonreactive) 04/26/22 20:50 Vitals Last Vital Signs Temp 98.5 F 04/28/22 15:26 Pulse 68 04/28/22 15:26 Resp 12 04/28/22 15:26 BP 126/73 04/28/22 15:26 Pulse Ox 95 04/28/22 15:26 O2 Del Method 04/28/22 15:26 O2 Flow Rate 2 04/28/22 11:33 Discharge Plan Discharge Patient Disposition: Home Condition: Stable Prescriptions: Continued nitroglycerin [Nitrostat] 0.4 mg tablet, sublingual 0.4 mg SUBLINGUAL Q5M PRN (Reason: chest pain) aspirin [Adult Aspirin Regimen] 81 mg tablet,delayed release (DR/EC) 81 mg PO DAILY atorvastatin 20 mg tablet 20 mg PO DAILY PreserVision Lutein 226 mg-200 unit -5 mg-0.8 mg capsule 1 cap PO PRN PRN (Reason: low vitamin count) lisinopril 20 mg tablet 40 mg PO BID famotidine 40 mg tablet 40 mg PO BID Label Comments: pt takes PRN meloxicam 15 mg tablet 15 mg PO DAILY furosemide 20 mg tablet 20 mg PO DAILY amoxicillin 875 mg tablet 875 mg PO BID Tiadylt ER 180 mg capsule,extended release 24 hr 180 mg PO DAILY metoprolol succinate 100 mg Tablet Extended Release 24 Hr 100 mg PO DAILY omeprazole 40 mg capsule,delayed release(DR/EC) 40 mg PO DAILY PRN (Reason: heartburn) Discharge Orders: Discharge Order (Routine); Ordered 04/28/22 Ordered By: Lora Uriarte Other Ambulatory Orders: Comprehensive Metabolic Panel (Routine) Timeframe: 1 Week Facility: [facility] - Location: Lab - Main Lab Ordered By: Lora Uriarte Referrals: Taisha Johnson MD [Referring] - 1 week (FAXED REFFER[facility] PLEASECALL WITH APPOINTMENT) Parvez Kay DO [Primary Care Provider] - 05/03/22 9:00 am Discharge Diet: GI Soft Discharge Activity: Resume usual activity Patient Instructions: Abdominal Pain (ED), Opioid Safety Activity Restrictions/Additional Instructions: Please follow up with gastroenterology as directed. Repeat labs in 1 week F/U with PCP within 4-7 days Return to ER if you have worsening of symptoms or development of new symptoms Discharge Attestations Time Spent in Discharge Care*: less than 30 min Quality Metrics Clinical Quality Measures [ No reported AMI, CVA or VTE this stay] Coding Level of Care Code Acute Code for Chg Fwd Diagnoses Chest pain R07.9 Chest pain type: unspecified Acute pancreatitis K85.90 Acute pancreatitis complication: unspecified Pancreatitis type: unspecified pancreatitis type Transaminitis R74.01 Essential hypertension I10 CAD (coronary artery disease) I25.10
== END 2022-04-28 17:29 | disposition home or self-care (01) ==
LOC: ER 23:08 → MEDSURG 23:43
PROVIDERS: Emergency Medicine; Admitting Provider Internal Medicine; Emergency Provider Family Medicine; PCP Electrodiagnostic Medicine; Visit Provider Internal Medicine
DX: R07.9 Chest pain, unspecified (principal); K85.90 Acute pancreatitis without necrosis or infection, unspecified; R74.01 Elevation of levels of liver transaminase levels; I10 Essential (primary) hypertension; I25.10 Atherosclerotic heart disease of native coronary artery without angina pectoris; Z86.16 Personal history of COVID-19; E78.5 Hyperlipidemia, unspecified; M81.0 Age-related osteoporosis without current pathological fracture; G47.30 Sleep apnea, unspecified; Z79.82 Long term (current) use of aspirin
CPT/HCPCS: 36415; 71045; 74177; 74181; 76700; 80053; 80061; 83690; 84484; 85025; 85730; 86705; 86706; 86709; 86803; 87340; 93005; 94760; 96361; 96372; 96374; 96375; 96376; 99285; C9113; G0378; J1650; J2270; J2405; J7120; J7799; Q9967

== ENCOUNTER 2024-02-02 10:33 | Outpatient (CLI) | payer MEDICARE, OTHER, SELFPAY ==
--- NOTE | 2024-02-02 10:41 | MR_ITS ---
WS: [id number] MRI LUMBAR SPINE NONCONTRAST HISTORY: LUMBOSACRAL RADICULOPATHY COMPARISON: 08/23/2016 TECHNIQUE: Sagittal and axial multisequence imaging is submitted. Localizer demonstrates C4 anterolisthesis by 4 mm which is new since 2017. Mild anterior wedging of C 5. L4 anterolisthesis by 4.6 mm. Mild increase in the lumbar lordosis. No marrow edema. Disc spaces and vertebral body heights are well-preserved. Conus terminates normally at L1-2 disc level. L1-L2: Mild bilateral facet arthritis. No stenosis. L2-L3: Moderate annular disc bulging with mild osteophytic ridging. Ligamentum flavum and facet arthr itis. Significant encroachment upon the thecal sac resulting in moderate to severe central with bilat eral subarticular recess and RIGHT foraminal stenosis. Mild LEFT foraminal stenosis. Significant disc contact on the traversing L3 nerve roots. L3-L4: Marked annular disc bulging with severe ligamentum flavum hypertrophy. Fluid in the LEFT facet joint. Severe central, bilateral subarticular recess and moderate foraminal stenosis. L4-L5: Diffuse annular disc bulge with a moderate broad-based disc protrusion into the LEFT foramen. Severe ligamentum flavum hypertrophy and facet arthritis. Severe central with bilateral subarticular recess and mild LEFT foraminal stenosis. No significant RIGHT foraminal stenosis. Most significant di sc encroachment into the LEFT subarticular recess contacting the traversing LEFT L5 nerve root. L5-S1: Mild disc bulging. Mild atherosclerosis abdominal aorta. MR/MR lumbar spine wo con* [id number] IMPRESSION: 1. There has been a significant progression of multilevel stenosis since 2016. 2. New L4 anterolisthesis by 4.6 mm. 3. L2-3: Severe central, bilateral subarticular recess and RIGHT foraminal sharon nosis. There is significant disc contact on the traversing L3 nerve roots. 4. L3-4: Severe central, bilateral subarticular recess and moderate foraminal stenosis. 5. L4-5: Severe central with bilateral subarticular recess and mild LEFT jany inal stenosis. Broad-based disc protrusion into the LEFT foramen contributing t o the stenosis and nerve root contact..
== END 2024-02-02 10:34 | disposition home or self-care (01) ==
LOC: RAD 10:34
PROVIDERS: PCP Electrodiagnostic Medicine; Visit Provider Student in an Organized Health Care Education/Training Program
DX: M54.17 Radiculopathy, lumbosacral region (principal); M43.12 Spondylolisthesis, cervical region; M51.360 Other intervertebral disc degeneration, lumbar region with discogenic back pain only; M25.78 Osteophyte, vertebrae; M99.63 Osseous and subluxation stenosis of intervertebral foramina of lumbar region
CPT/HCPCS: 72148

== ENCOUNTER → 2024-09-02 12:24 | Outpatient (BNVA) | payer MEDICARE, OTHER, SELFPAY | PROVIDERS: PCP Electrodiagnostic Medicine; Visit Provider Internal Medicine Cardiovascular Disease | DX: R07.9 Chest pain, unspecified (principal); I47.20 Ventricular tachycardia, unspecified; I49.1 Atrial premature depolarization; I49.3 Ventricular premature depolarization; I49.8 Other specified cardiac arrhythmias; I47.10 Supraventricular tachycardia, unspecified | CPT/HCPCS: 93242 ==

== ENCOUNTER 2024-09-25 09:52 | Outpatient (CLI) | payer MEDICARE, OTHER, SELFPAY ==
[2024-09-25 10:23] VITALS: BMI 23.5
--- NOTE | 2024-09-25 10:24 | ECG_ITS ---
[email or web address] Nourish Test Date: 2024-09-25 Pat Name: April Schwartz Department: Room: Gender: Female Care Clinician: : 1940 Requested By: Parvez Campuzano Order Number: [id number] Cale MD: Bang Shepherd M.D. Interpretive Statements LEXISCAN SESTAMIBI STRESS TEST Procedure: At the baseline, the blood pressure was 199/100 mmHg with a heart rate of 62 bpm. The electrocardiogram showed normal sinus rhythm, normal axis with normal ST and T's. The Lexiscan was infused over a period of 20 seconds. A total of 0.4 mg of Lexiscan was infused. The stress phase was continued for a total of 5 minutes. Heart rate was at the end of stress phase was 73 bpm and a blood pressure of 175/80 mmHg. The EKG at the peak infusion revealed normal sinus rhythm with no significant ST-T wave changes. Sestamibi was injected 20 seconds after the Lexiscan infusion. Blood pressure at the end of recovery phase was 173/79 mmHg with a heart rate of 73 bpm. Conclusion: 1. Normal EKG response to Lexiscan infusion 2. No Lexiscan induced chest pain or cardiac arrhythmia. 3. Normal blood pressure and heart rate response. 4. Sestamibi/sestamibi perfusion scan pending; see separate report. Electronically Signed On 09-26-2024 12:42:47 CDT by Bang Shepherd M.D. [email or web address]
--- NOTE | 2024-09-25 10:25 | NMCV_ITS ---
NM alesia perf SPECT r/s* [id number] April Schwartz Age: 84 Gender: F : 1940 Exam Date: 09/25/2024 11:20 Ordering Phys: Parvez Kay DO Technologist: NAHOMI Blanco Exam Location: [facility] Indications: cp STRESS TEST Please see separate stress test report in [facility] for full findings IMAGE PROTOCOL Rest/Stress 1 Lexiscan Day Radiopharmaceutical Dose (mCi) Administration Site Administered by Rest: Tc-99m 10.9 IV Naomie Chavez, ART SUPERVISOR Sestamibi Stress:Tc-99m 32.9 IV Naomie Bellgle, ART SUPERVISOR Sestamibi Rest: 25-Sep-2024 60 Discovery 630 Stress: 25-Sep-2024 30 Discovery 630 0.4mg Lexiscan. Images obtained in supine and prone position. SPECT RESULTS Technical Quality: Good Raw Data Analysis: Normal Image Corrections: No attenuation or motion correction applied Summed Stress Score: 1 Summed Rest Score: 0 Summed Difference Score: 1 PERFUSION FINDINGS SPECT images demonstrate homogeneous tracer distribution throughout the myocardium. FUNCTIONAL RESULTS (calculated via Gated SPECT) Stress Image LV EF (%): 64 Stress EDV (mL):87 TID: 1.4 Stress ESV (mL):31 FUNCTIONAL FINDINGS: There is normal left ventricular systolic function. TID ratio is elevated. IMPRESSIONS 1. Normal myocardial perfusion imaging with no evidence of ischemia. 2. LV systolic function is normal. 3. TID ratio is elevated. In the absence of perfusion abnormalities, significance of this finding is equivocal. Bang Shepherd MD (Electronically Signed) Final Date: 26 September 2024 09:40 S
[2024-09-25 11:58] VITALS: BP 173/79; PULSE 73
== END 2024-09-25 09:53 | disposition home or self-care (01) ==
LOC: CDL 09:54
PROVIDERS: PCP Electrodiagnostic Medicine; Visit Provider Electrodiagnostic Medicine
DX: R07.9 Chest pain, unspecified (principal); R93.1 Abnormal findings on diagnostic imaging of heart and coronary circulation
CPT/HCPCS: 36415; 78452; 93017; 96374; A9500; J2785

== ENCOUNTER → 2024-11-12 14:41 | Outpatient (BNVA) | payer MEDICARE, OTHER, SELFPAY | PROVIDERS: PCP Electrodiagnostic Medicine; Visit Provider Internal Medicine | DX: I10 Essential (primary) hypertension (principal); R07.9 Chest pain, unspecified; R58 Hemorrhage, not elsewhere classified; R00.2 Palpitations; I25.10 Atherosclerotic heart disease of native coronary artery without angina pectoris; I65.29 Occlusion and stenosis of unspecified carotid artery; E78.5 Hyperlipidemia, unspecified; F17.210 Nicotine dependence, cigarettes, uncomplicated | CPT/HCPCS: 36415; 80048; 85025; 85610; 93005; 99204 ==

== ENCOUNTER 2024-11-15 08:39 | Outpatient (CLI) | payer MEDICARE, OTHER, SELFPAY ==
--- NOTE | 2024-11-15 09:00 | XACV_ITS ---
Exam Room: 2 Ht: 170 cm Wt: 68 kg BSA: 1.79 m2 Gender: Female : 1940 Any Known Allergies: Other Exam Priority: Routine Procedure(s): Procedure Description: Diagnostic procedure Procedure Description: Coronary Angiography Diagnostic Cath Status: Elective Diagnostic Findings * No significant disease noted in the Left Main, Left Anterior Descending, Right, or Circumflex coronary arteries. Patent proximal LAD stent. * Coronary angiography shows left dominance. Conclusions 1. No significant disease noted in the Left Main, Left Anterior Descending, Right, or Circumflex coronary arteries. Patent proximal LAD stent. Recommendations * Aggressive risk factor modification. * Outpatient cardiology follow up in 2 weeks. Interventional RX Recommendation: medical therapy and/or counseling Diagnostic RX Recommendation: medical therapy and/or counseling Clinical Evaluation EBL: 5mL-10mL Procedural Details Procedure Consent Obtained. Admit Source: Out Patient. Pre-Procedure Time Out. Identified patient by full name and date of as verbalized by the patient/guarantor. Does the consent match the physician's order: Yes. Accurate & Complete Informed Consent: Yes. Inpatient/Outpatient History & Physical on Chart: Yes. If H&P is completed, is and addenduem needed: No; If yes, is the addendum complete: N/A. Visualize and Verify Site with Patient/Guarantor: N/A. Relevant Radiology Images available: N/A. The risks, benefits, and alternatives of sedation and/or procedure were discussed by physician. The patient agrees to continue. Procedure started. [facility] Clinical Fraility Score: 4: Vulnerable. Electrical Timing Device Calibrator Indications: Worsening Angina. Chest Pain Symptom Assessment: Typical Angina Symptoms. Correct patient, site and procedure confirmed by cath team. Current diagnosis: Chest Pain, Abnormal stress test. PERRLA. Strong, equal hand manager client support bilaterally. Lungs clear x 5 lobes. IV Site on Arrival: 20 gauge in the left anticubital. IV Fluids: 0.9% NaCl at KVO. 0 mL infused prior to assistant laboratory director. Pre Procedural Pulses: bilateral posterior tibial was 1+. Pre Procedural Pulses: bilateral dorsalis pedis was 2+. Oxygen started at 2liters/min via nasal canula. bilateral groins was prepped with chloroprep then draped in the usual sterile fashion. Baseline sample Acquired. HR: 72 BPM. Physician notified. Physician arrived. Physician scrubbed in. Immediate Pre-Procedure Time Out. Correct Patient: Yes; Correct Procedure: Yes; Correct Site: Yes; Correct Patient Position: Yes; Correct Supplies: Yes; Dried Flammable Prep: Yes; Blood Products Available: No;. Lidocaine 1% infiltrated to the right groin. Arterial access obtained with micropuncture set. A 5 guyanese JL4 catheter in over wire. Catheter removed over the standard wire. A 6 guyanese JL4.5 catheter in over wire. Multiple views taken of left coronary artery. Catheter removed over the standard wire. A 5 guyanese JR4 catheter in over wire. View taken of right coronary artery. Catheter removed over the standard wire. A 5 guyanese Angled Pig catheter in over wire. Unable to cross . Catheter removed over the standard wire. A Right femoral angiogram was performed to determine safe placement of closure device. Medication's Wasted: Lidocaine 1% = 10 mL. Medication's Wasted: Heparin = 1000 units. Medication's Wasted: Other = Versed 1 mg. Medication's Wasted: Other = Fentanyl 50mcg. Medication's Wasted: Other = Hydralizine 10 mg. Medication's Wasted: Other = Benadryl 25mg , Narcan 0.2mg. Total IV fluids: 50 mL. No VTE prophylaxis required. Post-op diagnosis: Non-obstructive CAD, patent prior LAD stent. Complications: None. Estimated blood loss: 5mL-10mL. Responsiveness - Normal response to verbal stimuli; drowsy and oriented, PERRLA. Airway - Unaffected, no intervention required; spontaneous ventilation. Circulation: W/N/L, pulses unchanged. Nausea/Vomiting: No. Premedicated for history of nausea with sedation. PERRLA. Strong, equal hand manager client support bilaterally. A Mynx was successful obtaining hemostatsis at the Right Femoral artery insertion site. LOT # [id number] EXP 09-04-2026. Procedure completed. Patient transferred by bed to 1st floor. Vital chart was stopped. Access Site Site: Right Femoral artery Sheath Size: 6 Fr Hemostasis Method: Mynx Hemostasis Success: Successful Procedure Medications Start: 10:04 AM Stop: 10:04 AM Medication: Benadryl Amount: 25 mg Route: I.V. Start: 10:05 AM Stop: 10:05 AM Medication: Zofran (ondansetron) Amount: 4 mg Route: I.V. Start: 10:08 AM Stop: 10:08 AM Medication: Versed Amount: 1 mg Route: I.V. Start: 10:08 AM Stop: 10:08 AM Medication: Fentanyl Amount: 50 mcg Route: I.V. Start: 10:14 AM Stop: 10:14 AM Medication: Narcan Amount: 0.2 mg Route: I.V. Start: 10:18 AM Stop: 10:18 AM Medication: Hydralazine Amount: 10 mg Route: I.V. I, the attending physician, have reviewed and verified all procedure medications. Yes, all medications given per verbal order History/Risk Factors Hypertension: Yes Dyslipidemia: Yes Peripheral Arterial Disease (PAD): No Myocardial Infarction (DE): No Obesity: No Renal Disease: No Tobacco Use: Former Prior Interventions PCI: Yes CABG: No Valve Surgery: No Date of PCI: 06/18/2010 Report Signatures Finalized by Bang Shepherd MD on 11/29/2024 02:24 PM
[2024-11-15 09:49] VITALS: BP 160/84; PULSE 57; RESP 16; TEMP 36.8; O2SAT 94; BMI 23.3
--- NOTE | 2024-11-15 09:52 | W.PM.OPSUD ---
Surgery/Procedure H&P Update DATE OF PROCEDURE: November 15, 2024 DATE H&P PERFORMED: 11/12/24 H&P UPDATE INFORMATION: I have reviewed H&P completed within last 30 days, I have examined patient prior to procedure and No changes to prior documentation PREOP DIAGNOSIS: Worsening angina PRIMARY INDICATION FOR PROCEDURE: Worsening angina PLANNED PROCEDURE: Operation Date: 11/15/24 10:00 Proposed Procedures p Cardiac Catheterization - [facility] w/wo LV & Coros(Left) - Bang Shepherd M.D Possible percutaneous coronary intervention PATIENT REASSESSED PRIOR TO SEDATION, WITH NO CHANGE NOTED: Yes PHYSICAL EXAM: alert, oriented x 3, clear to auscultation bilaterally and regular rate & rhythm AIRWAY EVAL/ANESTHESIA PLAN: normal airway, ASA III, Local Anesthesia, Risks, benefits & alternatives of sedation and/or procedure discussed and Patient agrees to continue as planned ADDITIONAL INFORMATION: Moderate sedation
--- NOTE | 2024-11-15 10:38 | PM.PROC ---
Procedure Note: Date of procedure: 11/15/24 Pre-procedure diagnosis: Worsening angina Post-procedure diagnosis: other (Patent prior LAD stent. Non-obstructive coronary artery disease) Procedure: Patent prior LAD stent. Non-obstructive coronary artery disease Aggressive medical therapy Performing Provider: Bang Shepherd Complications: None Condition: stable Disposition: same day Coding Level of Care Code Acute Code for [facility] Fwdaniel
[2024-11-15 11:00] VITALS: BP 135/74; PULSE 63; RESP 21; TEMP 36.6
== END 2024-11-15 16:41 | disposition home or self-care (01) ==
LOC: CCL 08:42 → CSU 10:56
PROVIDERS: PCP Electrodiagnostic Medicine; Visit Provider Internal Medicine
DX: I25.10 Atherosclerotic heart disease of native coronary artery without angina pectoris (principal); Z95.5 Presence of coronary angioplasty implant and graft; I10 Essential (primary) hypertension; E78.5 Hyperlipidemia, unspecified; M35.3 Polymyalgia rheumatica; F17.200 Nicotine dependence, unspecified, uncomplicated; Z82.49 Family history of ischemic heart disease and other diseases of the circulatory system; Z79.82 Long term (current) use of aspirin; K21.9 Gastro-esophageal reflux disease without esophagitis
CPT/HCPCS: 36415; 93454; 96374; 96375; 99152; 99153; C1760; C1769; C1887; C1894; G0269; J0360; J1200; J1644; J2250; J2312; J2405; J3010; J3490; J7030; J9999; Q0163; Q9967

== ENCOUNTER → 2024-11-21 12:36 | Outpatient (BNVA) | payer MEDICARE, OTHER, SELFPAY | PROVIDERS: PCP Electrodiagnostic Medicine; Visit Provider Internal Medicine Cardiovascular Disease | DX: I25.10 Atherosclerotic heart disease of native coronary artery without angina pectoris (principal); R07.89 Other chest pain; I10 Essential (primary) hypertension; E78.5 Hyperlipidemia, unspecified; I65.29 Occlusion and stenosis of unspecified carotid artery; Z79.82 Long term (current) use of aspirin; Z95.5 Presence of coronary angioplasty implant and graft; F17.200 Nicotine dependence, unspecified, uncomplicated; R09.89 Other specified symptoms and signs involving the circulatory and respiratory systems | CPT/HCPCS: 99214 ==

== ENCOUNTER 2024-12-13 09:38 | Outpatient (CLI) | payer MEDICARE, OTHER, SELFPAY ==
--- NOTE | 2024-12-13 10:00 | USCV_ITS ---
Mcgraw, [place] Age: 84 Gender: F : 1940 Exam Date: 12/13/2024 10:06 Ordering Phys: Ivett Jc Technologist: BASILIA Exam Location: [facility] Indication: Pulmonary HTN BP: 120 / 60 HR: 51 Rhythm: Sinus Technical Quality: Adequate MEASUREMENTS (Male / Female) Normal Values 2D ECHO LV Diastolic Diameter PLAX 4.1 cm 4.2 - 5.9 / 3.9 - 5.3 cm IVS Diastolic Thickness 0.9 cm 0.6 - 1.0 / 0.6 - 0.9 cm IVS Systolic Thickness 1.3 cm LVPW Diastolic Thickness 1.3 cm 0.6 - 1.0 / 0.6 - 0.9 cm LVPW Systolic Thickness 1.5 cm LVOT Diameter 2.0 cm LV Ejection Fraction 2D Teich 57.6 % LV Ejection Fraction MOD 4C 69.0 % LV Ejection Fraction MOD 2C 59.4 % LV Ejection Fraction 2C AL 61.5 % LA Diameter 3.8 cm RA Systolic Volume 4C AL 51.0 ml RA Systolic Volume 4C MOD 51.3 ml LA Sys Volume AL 68.3 cm cubed LA Sys Volume Index AL 38.1 cm cubed/m squared Aorta at Sinotubular Diameter 2.8 cm M-MODE LA Ao Ratio MM 1.5 AV Cusp Separation MM 1.5 cm DOPPLER AV Peak Velocity 140.0 cm/s LVOT Peak Velocity 98.0 cm/s AV Area Cont Eq vti 1.9 cm squared AV Area Cont Eq pk 2.2 cm squared MV Peak Velocity 82.0 cm/s MV Area PHT 3.6 cm squared Mitral E to A Ratio 1.0 TV Peak Velocity 237.5 cm/s TR Peak Velocity 300.0 cm/s TR Peak Gradient 36.0 mmHg TV Peak E Velocity 50.0 cm/s PV Peak Velocity 114.0 cm/s FINDINGS Left Ventricle Normal left ventricular size and systolic function, EF 59%. Mild concentric left ventricular hypertrophy Right Ventricle Normal right ventricular size and systolic function. Right Atrium Mildly increased right atrial size. Left Atrium Moderately increased left atrial size. IA Septum Normal appearance of the interatrial septum. Mitral Valve Mild-moderate mitral valve regurgitation. Multiple regurgitant jets.thickened mitral valve. Aortic Valve Thickened aortic valve. Mild aortic valve regurgitation. Tricuspid Valve Mild tricuspid valve regurgitation. Estimated pulmonary artery peak systolic pressure 39 mmHg. This could be an underestimation because of the poor Doppler signals Pulmonic Valve Pulmonic valve not well visualized. Pericardium No pericardial effusion. Aorta Normal aortic annulus size. IVC Inferior vena cava not visualized. CONCLUSIONS Normal left ventricular size and systolic function, EF 59%. Mild concentric left ventricular hypertrophy. Moderately increased left atrial size. Mildly increased right atrial size. Mild-moderate mitral valve regurgitation. Multiple regurgitant jets.Thickened mitral valve. Thickened aortic valve. Mild aortic valve regurgitation. Mild tricuspid valve regurgitation. Estimated pulmonary artery peak systolic pressure 39 mmHg. This could be an underestimation because of the poor Doppler signals There is no pericardial effusion. Compared to the study from 11/02/2019, there may not be a significant change Dr Rey Iqbal MD [facility] (Electronically Signed) Final Date: 15 December 2024 18:57 S
== END 2024-12-13 09:39 | disposition home or self-care (01) ==
LOC: RAD 09:41
PROVIDERS: PCP Electrodiagnostic Medicine; Visit Provider Nurse Practitioner Family
DX: I25.10 Atherosclerotic heart disease of native coronary artery without angina pectoris (principal); I27.20 Pulmonary hypertension, unspecified; I08.3 Combined rheumatic disorders of mitral, aortic and tricuspid valves
CPT/HCPCS: 93306